=== PATIENT | female | born 1955 | race Two or more races ===

== ENCOUNTER 2016-04-04 14:42 | Emergency (ER) | payer OTHER ==
[2016-04-04 14:50] VITALS: BP 153/91; PULSE 104; TEMP 98.8; BMI 29.7
== END 2016-04-04 16:45 | disposition left against medical advice (07) ==
LOC: JER 14:42
DX: Z53.21 Procedure and treatment not carried out due to patient leaving prior to being seen by health care provider (principal)
CPT/HCPCS: 99281-25

== ENCOUNTER 2016-04-29 16:42 | Observation (INO) | payer OTHER ==
[2016-04-29 17:04] VITALS: BMI 32.3
--- NOTE | 2016-04-29 17:36 | PDOC ---
History of Present Illness <Yeison Masterson - Last Filed: 04/29/16 17:35> - History of Present Illness Initial Comments: 04/29/16 17:40 The patient is a 61 year old female who presents to the ED via EMS complaining of constipation and abdominal pain since today. The patient notes she has not had a bowel movement in two weeks. She states she tried Miralax with no relief. She states she has had constipation in the past. The patient denies chest pain, SOB The patient denies fever, chills, cough Allergies: Haloperidol <Aele Reese - Last Filed: 04/29/16 17:43> <Anastasia Tovar - Last Filed: 04/30/16 20:10> - General Chief Complaint: Constipation Stated Complaint: BOWEL OBSTRUCTION Past History - Past Medical History Anemia: Yes Diabetes: Yes GI Disorders: Yes (gerd) HTN: Yes Hypercholesterolemia: Yes - Immunization History Immunization Up to Date: Yes - Psycho/Social/Smoking Cessation Hx Anxiety: No Suicidal Ideation: No Smoking History: Unknown if ever smoked Have you smoked in the past 12 months: Yes Number of Cigarettes Smoked Daily: 10 Hx Alcohol Use: No Drug/Substance Use Hx: No <Yeison Masterson - Last Filed: 04/29/16 17:35> <Alee Reese - Last Filed: 04/29/16 17:43> <Anastasia Tovar - Last Filed: 04/30/16 20:10> - Past Medical History Allergies/Adverse Reactions: Allergies Allergy/AdvReac Type Severity Reaction Status Date / Time haloperidol [From Haldol] Allergy Verified 04/30/16 00:49 haloperidol lactate Allergy Verified 04/30/16 00:49 [From Haldol] Home Medications: Ambulatory Orders Albuterol Sulfate Inhaler - [Ventolin Hfa Inhaler -] 2 inh PO Q4H 04/29/16 Albuterol Sulfate [Proventil HFA Inhaler -] 1 - 2 inh PO QID 04/29/16 Amlodipine Besylate 10 mg PO DAILY 04/29/16 Ascorbic Acid [C-500] 500 mg PO BID 04/29/16 Aspirin [ASA -] 81 mg PO DAILY 04/29/16 Atorvastatin Ca [Lipitor] 20 mg PO HS 04/29/16 Calcium Carbonate/Vitamin D3 [Calcium 600 + Vit D Tablet] 1 each PO DAILY Cyclobenzaprine HCl [Amrix] 10 mg PO TID 04/29/16 Gabapentin [Neurontin] 300 mg PO HS 04/29/16 Iron Polysaccharide Complex [Ferrex 150] 150 mg PO DAILY 04/29/16 Lactulose (Oral Use) [Cephulac -] 20 gm PO TID 04/29/16 Mesalamine [Delzicol] 400 mg PO QID 04/29/16 Metoprolol Succinate [Toprol Xl] 50 mg PO DAILY 04/29/16 Mometasone/Formoterol [Dulera 200 Mcg/5 Mcg Inhaler] 2 inh IH BID 04/29/16 Omeprazole 20 mg PO DAILY 04/29/16 Oxycodone HCl/Acetaminophen [Percocet 10-325 mg Tablet] 1 each PO QID 04/29/16 Quetiapine Fumarate [Quetiapine Fumarate ER] 400 mg PO HS 04/29/16 Varenicline Tartrate [Chantix] 0.5 mg PO DAILY 04/29/16 Zolpidem Tartrate [Ambien] 10 mg PO HS 04/29/16 Review of Systems - Review of Systems Able to Perform ROS?: Yes Comments:: 04/29/16 17:40 CONSTITUTIONAL: Absent: fever, chills, diaphoresis, generalized weakness, malaise, loss of appetite HEENT: Absent: rhinorrhea, nasal congestion, throat pain, throat swelling, difficulty swallowing, mouth swelling, ear pain, eye pain, visual Changes CARDIOVASCULAR: Absent: chest pain, syncope, palpitations, irregular heart rate, lightheadedness , peripheral edema RESPIRATORY: Absent: cough, shortness of breath, dyspnea with exertion, orthopnea, wheezing, stridor, hemoptysis GASTROINTESTINAL: +Constipation, abdominal pain. Absent: abdominal distension, diarrhea, melena, hematochezia GENITOURINARY: Absent: dysuria, frequency, urgency, hesitancy, hematuria, flank pain, genital pain MUSCULOSKELETAL: Absent: myalgia, arthralgia, joint swelling SKIN: Absent: rash, itching, pallor HEMATOLOGIC/IMMUNOLOGIC: Absent: easy bleeding, easy bruising, lymphadenopathy, frequent infections ENDOCRINE: Absent: unexplained weight gain, unexplained weight loss, heat intolerance, cold intolerance NEUROLOGIC: Absent: headache, focal weakness or paresthesias, dizziness, unsteady gait, seizure, mental status changes, bladder or bowel incontinence PSYCHIATRIC: Absent: anxiety, depression, suicidal or homicidal ideation, hallucinations. <CandeAlee carter - Last Filed: 04/29/16 17:43> *Physical Exam - Vital Signs Last Vital Signs Temp Pulse Resp BP Pulse Ox 97.6 F 100 H 18 125/66 98 04/29/16 17:01 04/29/16 17:01 04/29/16 17:01 04/29/16 17:01 04/29/16 17:01 <Yeison Masterson - Last Filed: 04/29/16 17:35> - Vital Signs Last Vital Signs Temp Pulse Resp BP Pulse Ox 97.6 F 100 H 18 125/66 98 04/29/16 17:01 04/29/16 17:01 04/29/16 17:01 04/29/16 17:01 04/29/16 17:01 - Physical Exam Comments: 04/29/16 17:41 GENERAL: Well developed, well nourished. Awake and alert. In no acute distress. HEENT: Normocephalic, atraumatic. PERRLA, EOMI. No conjunctival pallor. Sclera are non- icteric. Moist mucous membranes. Oropharynx is clear. NECK: Supple. Full ROM. No JVD. Carotid pulses 2+ and symmetric, without bruits. No thyromegaly. No lymphadenopathy. CARDIOVASCULAR: Regular rate and rhythm. No murmurs, rubs, or gallops. Distal pulses are 2+ and symmetric. PULMONARY: No evidence of respiratory distress. Lungs clear to auscultation bilaterally. No wheezing, rales or rhonchi. ABDOMINAL: +Distended, stool is hard and dark brown. Non-tender. Non-distended. No rebound or guarding. No organomegaly. Normoactive bowel sounds. MUSCULOSKELETAL Normal range of motion at all joints. No bony deformities or tenderness. No CVA tenderness. EXTREMITIES: No cyanosis. No clubbing. No edema. No calf tenderness. SKIN: Warm and dry. Normal capillary refill. No rashes. No jaundice. NEUROLOGICAL: Alert, awake, appropriate. Cranial nerves 2-12 intact. No deficits to light touch and temperature in face, upper extremities and lower extremities. Normal speech. PSYCHIATRIC: Cooperative. Good eye contact. Appropriate mood and affect. <Alee Reese - Last Filed: 04/29/16 17:43> - Vital Signs Last Vital Signs Temp Pulse Resp BP Pulse Ox 97.6 F 100 H 18 125/66 98 04/29/16 17:01 04/29/16 17:01 04/29/16 17:01 04/29/16 17:01 04/29/16 17:01 <Anastasia Tovar - Last Filed: 04/30/16 20:10> ED Treatment Course - LABORATORY CBC & Chemistry Diagram: 04/30/16 08:00 04/30/16 08:00 - ADDITIONAL ORDERS Additional order review: Laboratory Results 04/29/16 04/29/16 17:30 17:30 Sodium 140 Potassium 4.4 Chloride 105 Carbon Dioxide 23 Anion Gap 12 BUN 15 Creatinine 1.5 H Creat Clearance w eGFR 35.07 Random Glucose 106 Calcium 9.8 Total Bilirubin 0.5 AST 24 ALT 14 Alkaline Phosphatase 196 H Total Protein 7.6 Albumin 3.6 Stool Occult Blood Negative 04/29/16 17:30 RBC 4.49 MCV 90.4 MCHC 32.5 RDW 14.2 MPV 7.8 Neutrophils % 83.0 H Lymphocytes % 11.1 Monocytes % 5.1 Eosinophils % 0.4 Basophils % 0.4 - Medications Given in the ED: ED Medications Discontinued Medications Generic Name Dose Route Start Last Admin Trade Name Maria Esther PRN Reason Stop Dose Admin Morphine Sulfate 1 mg 04/29/16 19:28 04/29/16 19:32 Morphine Injection - IVPUSH 04/29/16 19:29 1 mg ONCE ONE Administration Ondansetron HCl 4 mg 04/29/16 19:28 04/29/16 19:32 Zofran Injection IVPB 04/29/16 19:29 4 mg ONCE ONE Administration <Anastasia Tovar - Last Filed: 04/30/16 20:10> Medical Decision Making - Medical Decision Making 04/29/16 19:39 I received pt on signout and she seems to have a volvilus on abd xr; she is in for a CTscan, and she will be sent there shortly. She is nauseous and in pain and I ordered zofran and morphine. WHen she is back from CT, we can start an NG tube. 04/29/16 21:06 Patient Name: Joana Cavazos THIS IS A PRELIMINARY REPORT FROM IMAGING DOCUMENT PROCESSING SPECIALIST EXAM: CT abdomen/pelvis with contrast IMAGES: [id number] DATE OF SERVICE: 19:36:54.0 REASON FOR EXAM: Rule out SBO COMPARISON: None FINDINGS: There is a moderate hiatal hernia. There is no pneumoperitoneum *The colon is diffusely distended with stool and air. There is no obvious obstructing colonic lesion. There is no volvulus. Diagnostic considerations would include colonic ileus. There is no obvious SBO. There are no obvious gallstones No hydronephrosis No AAA The appendix is not identified. Urinary bladder is unremarkable. Mild free fluid is noted in the dependent portion of the pelvis. THIS DOCUMENT HAS BEEN ELECTRONICALLY SIGNED 04/30/16 20:08 NGT was placed. pt began feeling better and pulled it out. She is passing gas, and she has no obstruction, but she likely has an ileus and she has a great deal of abdominal pain, and she will be admitted for pain management and GI/ surg evaluation. <Anastasia Tovar - Last Filed: 04/30/16 20:10> *DC/Admit/Observation/Transfer <Yeison Masterson - Last Filed: 04/29/16 17:35> - Attestations Scribe Attestion: 04/29/16 17:40 Documentation prepared by Alee Reese, acting as medical billing manager for Yeison Masterson MD <Alee Reese - Last Filed: 04/29/16 17:43> - Discharge Dispostion Admit: Yes <Anastasia Tovar - Last Filed: 04/30/16 20:10> Diagnosis at time of Disposition: Chronic constipation, Ileus, Abdominal pain - Discharge Dispostion Condition at time of disposition: Guarded
[2016-04-29 17:49] LABS: BASOPHIL 0.4 % (0-2.0); EOSINOPHIL 0.4 % (0-4.5); MCH 29.4 pg (25.7-33.7); MCHC 32.5 g/dl (32.0-36.0); MEAN CELL VOLUME 90.4 fl (80-96); MEAN PLT VOLUME 7.8 fl (7.5-11.1); PLATELET COUNT 241 K/MM3 (134-434); RDW 14.2 % (11.6-15.6)
[2016-04-29 18:18] LABS: ALBUMIN 3.6 g/dl (3.4-5.0); CALCIUM 9.8 mg/dL (8.5-10.1); CREATININE 1.5 mg/dL (0.55-1.02)
[2016-04-29 18:19] LABS: BILIRUBIN,TOTAL 0.5 mg/dL (0.2-1.0); TOT PROT 7.6 g/dl (6.4-8.2)
[2016-04-29] MEDS ORDERED: morphine CARPU-JECT 2 MG/1 ML DISP.SYRIN ONE (19:24)
[2016-04-29] MEDS ORDERED: morphine CARPU-JECT 2 MG/1 ML DISP.SYRIN IVPUSH ONE (19:28)
[2016-04-29] MEDS ORDERED: ONDANSETRON 4 MG/2 ML VIAL IVPB ONE (19:28)
[2016-04-29] MEDS ORDERED: HYDROmorphone HCL CARPU-JECT 2 MG/1 ML DISP.SYRIN IVPUSH ONE (20:33)
[2016-04-29] MEDS ORDERED: HYDROmorphone HCL CARPU-JECT 2 MG/1 ML DISP.SYRIN ONE (20:36)
[2016-04-29] MEDS ORDERED: POLYETHYLENE GLYCOL 3350 119 GM BTL PO ONE (21:54)
[2016-04-29] MEDS ORDERED: LACTULOSE 20 GM/30 ML UDC (FOR ORAL USE ONLY) PO ONE (21:54)
[2016-04-29] MEDS ORDERED: LACTULOSE 20 GM/30 ML UDC (FOR ORAL USE ONLY) ONE (22:31)
--- NOTE | 2016-04-29 23:02 | HP ---
CHIEF COMPLAINT: Constipation, Abdominal Pain PCP: HISTORY OF PRESENT ILLNESS: This is a 61 y/o woman with a past medical history of Hypertension, Hyperlipidemia, Diabetes Mellitus, GERD, Schizophrenia. Who presents to the emergency department with constipation and abdominal pain x 2 weeks. Patient reports having nausea and vomiting intermittently. Patient reports falling 1.5 months ago shattering her right knee and having surgery at [facility]. Patient denies fever, chills, cough, SOB, CP, diarrhea, dysuria ER course was notable for: (1) Abdominal Xray image- ? volvulus (2) CTAP- moderate hiatal hernia, diffuse distended stool, air in colon (3) Given Morphine, Diluadid, Lactulose in ED Recent Travel: None PAST MEDICAL HISTORY: See HPI PAST SURGICAL HISTORY: R-Hip Replacement x2 R- knee Social History: SmokinPPD x 35 years Alcohol: Former since 81 Drugs: Denies Lives alone, not employed Family History: Mother: [place] age 60 Father: Cancer (unknown), age 61 Allergies haloperidol [From Haldol] Allergy (Verified 04/04/16 14:44) haloperidol lactate [From Haldol] Allergy (Verified 04/04/16 14:44) HOME MEDICATIONS: Home Medications Medication Instructions Recorded Albuterol Sulfate Inhaler - 2 inh PO Q4H 04/29/16 [Ventolin Hfa Inhaler -] Albuterol Sulfate [Proventil HFA 1 - 2 inh PO QID 04/29/16 Inhaler -] Amlodipine Besylate 10 mg PO DAILY 04/29/16 Ascorbic Acid [C-500] 500 mg PO BID 04/29/16 Aspirin [ASA -] 81 mg PO DAILY 04/29/16 Atorvastatin Ca [Lipitor] 20 mg PO HS 04/29/16 Calcium Carbonate/Vitamin D3 1 each PO DAILY 04/29/16 [Calcium 600 + Vit D Tablet] Cyclobenzaprine HCl [Amrix] 10 mg PO TID 04/29/16 Gabapentin [Neurontin] 300 mg PO HS 04/29/16 Iron Polysaccharide Complex 150 mg PO DAILY 04/29/16 [Ferrex 150] Lactulose (Oral Use) [Cephulac -] 20 gm PO TID 04/29/16 Mesalamine [Delzicol] 400 mg PO QID 04/29/16 Metoprolol Succinate [Toprol Xl] 50 mg PO DAILY 04/29/16 Mometasone/Formoterol [Dulera 200 2 inh IH BID 04/29/16 Mcg/5 Mcg Inhaler] Omeprazole 20 mg PO DAILY 04/29/16 Oxycodone HCl/Acetaminophen 1 each PO QID 04/29/16 [Percocet 10-325 mg Tablet] Quetiapine Fumarate [Quetiapine 400 mg PO HS 04/29/16 Fumarate ER] Varenicline Tartrate [Chantix] 0.5 mg PO DAILY 04/29/16 Zolpidem Tartrate [Ambien] 10 mg PO HS 04/29/16 REVIEW OF SYSTEMS CONSTITUTIONAL: Absent: fever, chills, diaphoresis, generalized weakness, malaise, loss of appetite, weight change HEENT: Absent: rhinorrhea, nasal congestion, throat pain, throat swelling, difficulty swallowing, mouth swelling, ear pain, eye pain, visual changes CARDIOVASCULAR: Absent: chest pain, syncope, palpitations, irregular heart rate, lightheadedness , peripheral edema RESPIRATORY: Absent: cough, shortness of breath, dyspnea with exertion, orthopnea, wheezing, stridor, hemoptysis GASTROINTESTINAL: abdominal pain, abdominal distension, nausea, vomiting, constipation Absent: diarrhea, melena, hematochezia GENITOURINARY: Absent: dysuria, frequency, urgency, hesitancy, hematuria, flank pain, genital pain MUSCULOSKELETAL: Absent: myalgia, arthralgia, joint swelling, back pain, neck pain SKIN: Absent: rash, itching, pallor HEMATOLOGIC/IMMUNOLOGIC: Absent: easy bleeding, easy bruising, lymphadenopathy, frequent infections ENDOCRINE: Absent: unexplained weight gain, unexplained weight loss, heat intolerance, cold intolerance NEUROLOGIC: Absent: headache, focal weakness or paresthesias, dizziness, unsteady gait, seizure, mental status changes, bladder or bowel incontinence PSYCHIATRIC: Absent: anxiety, depression, suicidal or homicidal ideation, hallucinations. PHYSICAL EXAMINATION GENERAL: Awake, alert, and fully oriented, in no acute distress. HEAD: Normal with no signs of trauma. EYES: Sclera icteric Pupils equal, round and reactive to light, extraocular movements intact, conjunctiva clear. No lid lag. EARS, NOSE, THROAT: Ears normal, nares patent, oropharynx clear without exudates. Moist mucous membranes. NECK: Normal range of motion, supple without lymphadenopathy, JVD, or masses. LUNGS: Breath sounds equal, clear to auscultation bilaterally. No wheezes, and no crackles. No accessory muscle use. HEART: Regular rate and rhythm, normal S1 and S2 without murmur, rub or gallop. ABDOMEN: Firm, generalized tenderness, distended, hypoactive bowel sounds, no guarding, no rebound, no masses. No hepatomegaly or splenomegaly. MUSCULOSKELETAL: Tenderness to R-knee. Normal range of motion at all joints. No bony deformities. No CVA tenderness. UPPER EXTREMITIES: 2+ pulses, warm, well-perfused. No cyanosis. No clubbing. Cap refill <2 seconds. No peripheral edema. LOWER EXTREMITIES: 2+ pulses, warm, well-perfused. No calf tenderness. No peripheral edema. NEUROLOGICAL: Cranial nerves II-XII intact. Normal speech. Gait not observed. PSYCHIATRIC: Cooperative. Good eye contact. Appropriate mood and affect. SKIN: Surgical scar, abrasion to R-knee. Warm, dry, normal turgor, no rashes noted. Laboratory Results - last 24 hr 04/29/16 04/29/16 04/29/16 17:30 17:30 17:30 WBC 10.0 RBC 4.49 Hgb 13.2 Hct 40.6 MCV 90.4 MCHC 32.5 RDW 14.2 Plt Count 241 MPV 7.8 Neutrophils % 83.0 H Lymphocytes % 11.1 Monocytes % 5.1 Eosinophils % 0.4 Basophils % 0.4 Sodium 140 Potassium 4.4 Chloride 105 Carbon Dioxide 23 Anion Gap 12 BUN 15 Creatinine 1.5 H Creat Clearance w eGFR 35.07 Random Glucose 106 Calcium 9.8 Total Bilirubin 0.5 AST 24 ALT 14 Alkaline Phosphatase 196 H Total Protein 7.6 Albumin 3.6 Stool Occult Blood Negative ASSESSMENT/PLAN: This is a 61 y/o female with a PMHx of: HTN, HLD, DM, Anemia, GERD, Psych. Presents to the ED constipation, abdominal pain x 2 weeks. Placed in Observation for further evaluation for their emergent condition. Plan: 1. Constipation - Likely secondary to Medications vs Ileus - Lactulose, Morphine, Dilaudid given in ED - Will avoid Opioids - Will Hold home meds that are constipating - Fleet Enema prn - NPO - Gentle IVF 2. Abdominal Pain - See Above - Omfier 3. HTN - Monitor BP - Continue Norvasc, Metoprolol 4. Diabetes Mellitus - Controlled - BGMs - ISS 5. Anemia - Stable - Will transfuse if Hgb < 7.0 6. GERD - Continue PPI 7. Schizophrenia - Continue Seroquel - quality assurance monitor body QT/QTc for prolongation - f/u with Psych consider change in med regimen 2/2 adverse effect- constipation 8. Tobacco Dependency - Patient counseled - Nicoderm Patch 9. FEN - NS@60ml/hr - Replete lyte prn - NPO 10. DVT/PPI Prophylaxis - OOB - SCDs - Consider AC if LOS > 48 hrs Code Status: Full Code Problem List - Problem (1) Chronic constipation Code(s): K59.09 - OTHER CONSTIPATION (2) Ileus Code(s): K56.7 - ILEUS, UNSPECIFIED (3) Abdominal pain Code(s): R10.9 - UNSPECIFIED ABDOMINAL PAIN (4) Anemia Code(s): D64.9 - ANEMIA, UNSPECIFIED (5) Diabetes mellitus Code(s): E11.9 - TYPE 2 DIABETES MELLITUS WITHOUT COMPLICATIONS (6) HTN (hypertension) Code(s): I10 - ESSENTIAL (PRIMARY) HYPERTENSION (7) HLD (hyperlipidemia) Code(s): E78.5 - HYPERLIPIDEMIA, UNSPECIFIED (8) GERD (gastroesophageal reflux disease) Code(s): K21.9 - GASTRO-ESOPHAGEAL REFLUX DISEASE WITHOUT ESOPHAGITIS (9) Schizophrenia Code(s): F20.9 - SCHIZOPHRENIA, UNSPECIFIED (10) Tobacco dependency Code(s): F17.200 - NICOTINE DEPENDENCE, UNSPECIFIED, UNCOMPLICATED (11) DVT prophylaxis Code(s): SCE6516 - Visit type - Emergency Visit Emergency Visit: Yes ED Registration Date: 04/29/16 Care time: The patient presented to the Emergency Department on the above date and was hospitalized for further evaluation of their emergent condition. - New Patient This patient is new to me today: Yes Date on this admission: 04/29/16 - Critical Care Critical Care patient: No
[2016-04-30] MEDS ORDERED: SODIUM PHOSPHATE/NA BIPHOS 133 ML ENEMA PR ONE (00:50)
[2016-04-30] MEDS: SODIUM CHLORIDE 1,000 ML IV SCH ×3 (01:40→23:45)
[2016-04-30] MEDS ORDERED: KETOROLAC TROMETHAMINE 30 MG/1 ML VIAL IVPUSH ONE (02:01)
[2016-04-30] MEDS ORDERED: ACETAMINOPHEN 1000 MG/100 ML VIAL (NON FORMULARY) IVPB ONE (02:09)
[2016-04-30 08:14] LABS: BASOPHIL 0.6 % (0-2.0); EOSINOPHIL 0.1 % (0-4.5); MCH 29.6 pg (25.7-33.7); MCHC 33.3 g/dl (32.0-36.0); MEAN CELL VOLUME 88.8 fl (80-96); MEAN PLT VOLUME 6.8 fl (7.5-11.1); NEUTROPHILS 77.4 % (42.8-82.8); PLATELET COUNT 175 K/MM3 (134-434); RDW 13.9 % (11.6-15.6); WHITE BLOOD COUNT 8.2 K/mm3 (4.0-10.0)
[2016-04-30 09:02] LABS: CALCIUM 9.5 mg/dL (8.5-10.1); CREATININE 1.3 mg/dL (0.55-1.02)
[2016-04-30 09:45] LABS: ALBUMIN 3.2 g/dl (3.4-5.0)
[2016-04-30 09:46] LABS: BILIRUBIN,DIRECT 0.2 mg/dL (0.0-0.2); BILIRUBIN,TOTAL 0.5 mg/dL (0.2-1.0); TOT PROT 6.5 g/dl (6.4-8.2)
[2016-04-30] MEDS ORDERED: ACETAMINOPHEN 325 MG TABLET (FP) PO ONE (10:10)
[2016-04-30] MEDS ORDERED: oxyCODONE HCL 5 MG TABLET PO ONE (11:37)
[2016-04-30] MEDS: NICOTINE 14 MG/24 HOURS TOPICAL PATCH TD SCH ×2 (12:19→12:22)
--- NOTE | 2016-04-30 12:41 | PN ---
Progress Note (short form) - Note Progress Note: Subjective: The patient was seen and examined at the bedside. She was woken up and appears comfortable. She reports feeling good. Had two large bowel movements overnight. Abd x-ray today with slight improvement with less colonic air distention but increased right colonic stool Current Medications Generic Name Dose Route Start Last Admin Trade Name Freq PRN Reason Stop Dose Admin Acetaminophen 650 mg 04/30/16 14:27 Tylenol - PO Q6H PRN FEVER OR PAIN Docusate Sodium 100 mg 04/30/16 14:16 Colace - PO Q8H PRN CONSTIPATION Sodium Chloride 1,000 mls @ 60 mls/hr 04/29/16 23:45 04/30/16 01:40 Normal Saline - IV 60 mls/hr ASDIR AMANDA Administration Nicotine 14 mg 04/30/16 10:00 04/30/16 12:22 Nicoderm Patch - TD Not Given DAILY AMANDA Polyethylene Glycol 17 gm 04/30/16 15:45 Miralax (For Daily Use) - PO DAILY AMANDA Senna 2 tab 04/30/16 22:00 Senna - PO HS PRN CONSTIPATION Objective: Vital Signs Period Temp Pulse Resp BP Sys/Diaz Pulse Ox Last 24 Hr 97.6 F-99.4 F 100-107 18-18 125-143/63-76 96-98 Physical Exam: Patient refused CBCD WBC 8.2 K/mm3 (4.0-10.0) 04/30/16 08:00 RBC 4.29 M/mm3 (3.60-5.2) 04/30/16 08:00 Hgb 12.7 GM/dL (10.7-15.3) 04/30/16 08:00 Hct 38.1 % (32.4-45.2) 04/30/16 08:00 MCV 88.8 fl (80-96) 04/30/16 08:00 MCHC 33.3 g/dl (32.0-36.0) 04/30/16 08:00 RDW 13.9 % (11.6-15.6) 04/30/16 08:00 Plt Count 175 K/MM3 (134-434) D 04/30/16 08:00 MPV 6.8 fl (7.5-11.1) L D 04/30/16 08:00 CMP Sodium 141 mmol/L (136-145) 04/30/16 08:00 Potassium 3.9 mmol/L (3.5-5.1) 04/30/16 08:00 Chloride 105 mmol/L (98-107) 04/30/16 08:00 Carbon Dioxide 25 mmol/L (21-32) 04/30/16 08:00 Anion Gap 11 (8-16) 04/30/16 08:00 BUN 19 mg/dL (7-18) H D 04/30/16 08:00 Creatinine 1.3 mg/dL (0.55-1.02) H 04/30/16 08:00 Creat Clearance w eGFR 35.07 (>60) 04/29/16 17:30 Random Glucose 119 mg/dL (74-106) H 04/30/16 08:00 Calcium 9.5 mg/dL (8.5-10.1) 04/30/16 08:00 Total Bilirubin 0.5 mg/dL (0.2-1.0) 04/30/16 08:00 AST 12 U/L (15-37) L D 04/30/16 08:00 ALT 9 U/L (12-78) L D 04/30/16 08:00 Alkaline Phosphatase 186 U/L (45-117) H 04/30/16 08:00 Total Protein 6.5 g/dl (6.4-8.2) 04/30/16 08:00 Albumin 3.2 g/dl (3.4-5.0) L 04/30/16 08:00 Assessment: This is a 61 year old female with PMHx of HTN, HLD, possible DM, Anemia, GERD, Schizophrenia, who presented to the ED with constipation, abdominal pain x 2 weeks Plan: 1) GI: Constipation, abd pain - Patient takes narcotics at home without stool softeners - Two large bowel movements today, but still with abdominal pain - Lactulose - Miralax - Colace - Senna - Avoid opioids - Discharge once pain improved 2) Cardiology: HTN - BP controlled - Continue Metoprolol - Continue Norvasc 3) : WIL? - Cr continues to improve - Baseline function unknown - Encourage po intake - Outpatient nephrology follow-up 4) DM? - Not on home medications - BGM ACHS - ISS ACHS - F/u [id number] 5) F/E/N: - Monitor electrolytes - Sodium controlled/diabetic diet 6) Prophylaxis: - OOB ambulating - SCDs bilaterally - Heparin 5,000u sq bid 7) Dispo: - Once condition improves CODE STATUS: FULL CODE Visit type - Emergency Visit Emergency Visit: Yes ED Registration Date: 04/29/16 Care time: The patient presented to the Emergency Department on the above date and was hospitalized for further evaluation of their emergent condition. - New Patient This patient is new to me today: Yes Date on this admission: 04/30/16 - Critical Care Critical Care patient: No
[2016-04-30] MEDS ORDERED: LACTULOSE 20 GM/30 ML UDC (FOR ORAL USE ONLY) PO ONE (14:15)
[2016-04-30] MEDS ORDERED: DOCUSATE SODIUM 100 MG CAPSULE (FP) PO PRN (14:16)
[2016-04-30] MEDS ORDERED: ACETAMINOPHEN 325 MG TABLET (FP) PO PRN (14:27)
[2016-04-30] MEDS ORDERED: MESALAMINE 400 MG PO SCH (18:00)
[2016-04-30] MEDS: POLYETHYLENE GLYCOL 3350 119 GM BTL PO SCH (18:13)
[2016-04-30] MEDS: ALBUTEROL SO4 6.7 GM HFA INHALER IH SCH (21:52)
[2016-04-30] MEDS: LACTULOSE 20 GM/30 ML UDC (FOR ORAL USE ONLY) PO SCH (21:52)
[2016-04-30] MEDS: HEPARIN NA (PORCINE) 5,000 UNITS/ML 1ML VIAL SQ SCH (21:53)
[2016-04-30] MEDS ORDERED: ATORVASTATIN CA 20 MG TABLET (FP) PO SCH (22:00)
[2016-04-30] MEDS ORDERED: GABAPENTIN 300 MG CAPSULE (FP) PO SCH (22:00)
[2016-04-30] MEDS ORDERED: SENNOSIDES 8.6MG TABLET (FP) PO PRN (22:00)
[2016-04-30] MEDS ORDERED: PATIENT'S OWN MEDICATION (NON-FORMULARY) (Mometasone/Formoterol [Dulera 200 Mcg/5 Mcg Inha IH SCH (22:00)
[2016-04-30] MEDS: ZOLPIDEM TARTRATE 5 MG TABLET PO PRN ×2 (22:59→23:00)
--- NOTE | 2016-05-01 00:36 | EKG ---
Test Reason : Blood Pressure : / mmHG Vent. Rate : 103 BPM Atrial Rate : 103 BPM P-R Int : 154 ms QRS Dur : 082 ms QT Int : 330 ms P-R-T Axes : 060 063 021 degrees QTc Int : 432 ms SINUS TACHYCARDIA OTHERWISE NORMAL ECG NO PREVIOUS ECGS AVAILABLE Confirmed by RA WALTERS MD ([id number] on 05/01/2016 12:35:39 AM Referred By: Uzair KEITH Confirmed By:RA WALTERS MD
[2016-05-01] MEDS: ALBUTEROL SO4 6.7 GM HFA INHALER IH SCH ×2 (04:00)
[2016-05-01] MEDS: LACTULOSE 20 GM/30 ML UDC (FOR ORAL USE ONLY) PO SCH (06:12)
[2016-05-01] MEDS ORDERED: PANTOPRAZOLE 20 MG TABLET (FP) PO SCH (10:00)
[2016-05-01] MEDS ORDERED: VARENICLINE TARTRATE 0.5 MG TAB PO SCH (10:00)
[2016-05-01] MEDS ORDERED: ASPIRIN 81 MG CHEWABLE TABLETS PO SCH (10:00)
[2016-05-01] MEDS ORDERED: amLODIPine BESYLATE 10 MG TABLET (FP) PO SCH (10:00)
[2016-05-01] MEDS ORDERED: METOPROLOL SUCCINATE 50 MG TAB.SR.24H (FP) PO SCH (10:00)
[2016-05-01] MEDS: POLYETHYLENE GLYCOL 3350 119 GM BTL PO SCH (11:13)
[2016-05-01] MEDS: NICOTINE 14 MG/24 HOURS TOPICAL PATCH TD SCH (11:13)
[2016-05-01] MEDS: HEPARIN NA (PORCINE) 5,000 UNITS/ML 1ML VIAL SQ SCH (11:14)
--- NOTE | 2016-05-01 12:13 | DS ---
Physical Exam: SUBJECTIVE: Patient seen and examined. She was sitting up in bed, in no acute distress. States she has had a bowel movement this morning. Denies any diarrhea, nausea or vomiting. States she feels better. She state she takes Oxycodone at home for her chronic right leg pain. OBJECTIVE: Vital Signs Period Temp Pulse Resp BP Sys/Diaz Pulse Ox Last 24 Hr 98.1 F-99.3 F 94-117 18-20 118-135/56-73 96-96 PHYSICAL EXAM GENERAL: The patient is awake, alert, and fully oriented, in no acute distress. HEAD: Normal with no signs of trauma. EYES: PERRL, extraocular movements intact, sclera anicteric, conjunctiva clear. ENT: oropharynx clear without exudates, moist mucous membranes. NECK: Trachea midline, full range of motion, supple. LUNGS: Breath sounds equal, clear to auscultation bilaterally, no wheezes, no crackles, no accessory muscle use. HEART: Regular rate and rhythm ABDOMEN: Soft, nontender, + bowel sounds on all 4 quadrants, + flatulence, denies pain on deep palpation of abdomen, denies nausea/vomiting EXTREMITIES: large scar on right lateral leg, pt states she has had surgery with metallic implants of right leg NEUROLOGICAL: Normal speech, gait not observed. PSYCH: Normal mood, normal affect. LABS Laboratory Results - last 24 hr 04/30/16 04/30/16 05/01/16 18:19 22:03 06:13 POC Glucometer 89 112 101 HOSPITAL COURSE: Date of Admission:04/29/16 Date of Discharge: 05/01/16 Imaging: Abdominal xray 04/30/2016 - Slight improvement with less colonic air distention but increase in right colonic stool, no free air. ASSESSMENT: Patient is a 61 year old female with a significant past medical history of hypertension, hyperlipidemia, possible DM, anemia, GERD and schizophrenia. who presented to the ED with constipation, abdominal pain for approximately 2 weeks. During today's assessment, pt denies any abdominal pain, states she is moving her bowels an denies any nausea of vomiting. She states she takes Oxycodone at home for her chronic leg pain. GI Constipation/Abdominal pain - resolved Assessment/Plan: Had two large BMs yesterday, 1 small BM overnight and one large BM this morning Her abdomen is soft, non distended, denies pain and has + bowel sounds, no nausea or vomiting reported Will prescribe Colace TID, Senna @HS She should take opiods only if pain is severe Cardiology: Hypertension - chronic Assessment/Plan: Controlled on Metoprolol and Norvasc Outpatient follow up : Acute kidney Injury Assessment/Plan: Unknown baseline bun/creat, however, trend shows improvement Continue adequate water intake Re-assess with outpt PCP and if continues to be elevated, may need furnace attendant follow up. Endocrine: Diabetes Mellitus - rule out Assessment/Plan: HgbA1c as out patient, blood glucose levels within normal limits Psyche: Schizophrenia Assessment/Plan: Tisha Young Advised to follow up with psychologist, for possible change in med regimen secondary to constipation Disposition: For discharge today with follow up with PCP within 3- 5 days. Full Code. Minutes to complete discharge: 45 Discharge Summary Reason For Visit: CHRONIC CONSTIPATION/ILEUS ABD PAIN Current Active Problems Abdominal pain (Acute) Anemia (Acute) Chronic constipation (Acute) DVT prophylaxis (Acute) Diabetes mellitus (Acute) GERD (gastroesophageal reflux disease) (Acute) HLD (hyperlipidemia) (Acute) HTN (hypertension) (Acute) Ileus (Acute) Schizophrenia (Acute) Tobacco dependency (Acute) Condition: Improved - Instructions Diet, Activity, Other Instructions: Please avoid Opioids unless your pain is severe. Take laxatives as prescribed and increase your fluid intake to a minimum of 8 glasses of water per day. Please return to the ER if you experience worsening symptoms, worsening abdominal pain, nausea or vomiting. Please follow up with your pCP for repeat blood work (BMP) for repeat renal function. Disposition: HOME - Home Medications Comprehensive Discharge Medication List: Ambulatory Orders Albuterol Sulfate Inhaler - [Ventolin Hfa Inhaler -] 2 inh PO Q4H 04/29/16 Albuterol Sulfate [Proventil HFA Inhaler -] 1 - 2 inh PO QID 04/29/16 Amlodipine Besylate 10 mg PO DAILY 04/29/16 Ascorbic Acid [C-500] 500 mg PO BID 04/29/16 Aspirin [ASA -] 81 mg PO DAILY 04/29/16 Atorvastatin Ca [Lipitor] 20 mg PO HS 04/29/16 Calcium Carbonate/Vitamin D3 [Calcium 600 + Vit D Tablet] 1 each PO DAILY Cyclobenzaprine HCl [Amrix] 10 mg PO TID 04/29/16 Gabapentin [Neurontin] 300 mg PO HS 04/29/16 Iron Polysaccharide Complex [Ferrex 150] 150 mg PO DAILY 04/29/16 Lactulose (Oral Use) [Cephulac -] 20 gm PO TID 04/29/16 Mesalamine [Delzicol] 400 mg PO QID 04/29/16 Metoprolol Succinate [Toprol Xl] 50 mg PO DAILY 04/29/16 Mometasone/Formoterol [Dulera 200 Mcg/5 Mcg Inhaler] 2 inh IH BID 04/29/16 Omeprazole 20 mg PO DAILY 04/29/16 Oxycodone HCl/Acetaminophen [Percocet 10-325 mg Tablet] 1 each PO QID 04/29/16 Quetiapine Fumarate [Quetiapine Fumarate ER] 400 mg PO HS 04/29/16 Varenicline Tartrate [Chantix] 0.5 mg PO DAILY 04/29/16 Zolpidem Tartrate [Ambien] 10 mg PO HS 04/29/16 This patient is new to me today: Yes Date on this admission: 05/01/16 Emergency Visit: Yes ED Registration Date: 04/29/16 Care time: The patient presented to the Emergency Department on the above date and was hospitalized for further evaluation of their emergent condition. Critical Care patient: No - Discharge Referral Referred to [facility] Med P.C.: No
[2016-05-01 13:52] VITALS: BP 133/74; PULSE 95; TEMP 97.7
== END 2016-05-01 15:58 | disposition home or self-care (01) ==
LOC: JER 16:42 → JERBED 22:09 → INTOOBSV 22:09 → UNDOADMOB 22:09 → JERBED 23:12 → J7W 04-30 01:20
PROVIDERS: ADMIT Internal Medicine; ATTEND Nurse Practitioner Family
DX: K59.09 Other constipation (principal); D64.9 Anemia, unspecified; N17.9 Acute kidney failure, unspecified; E11.9 Type 2 diabetes mellitus without complications; E78.00 Pure hypercholesterolemia, unspecified; K56.69 Other intestinal obstruction; K21.9 Gastro-esophageal reflux disease without esophagitis; I10 Essential (primary) hypertension; F20.89 Other schizophrenia; F17.210 Nicotine dependence, cigarettes, uncomplicated; K44.9 Diaphragmatic hernia without obstruction or gangrene; Z96.651 Presence of right artificial knee joint; Z96.643 Presence of artificial hip joint, bilateral
CPT/HCPCS: 36415; 71010-TC; 74000-TC; 74020-TC; 74176-TC; 80048; 80053; 80076; 81003; 82272; 83036; 85025; 93005; 93010; 99285-25; G0378; J1644

== ENCOUNTER 2016-07-13 02:55 | Emergency (ER) | payer OTHER ==
[2016-07-13 03:21] VITALS: BP 140/71; PULSE 94; TEMP 98.1; BMI 32.3
[2016-07-13] MEDS ORDERED: SODIUM CHLORIDE 1,000 ML IV STA (03:40)
--- NOTE | 2016-07-13 03:40 | PDOC ---
History of Present Illness - General History Source: Patient Exam Limitations: No Limitations - History of Present Illness Initial Comments: 07/13/16 03:45 The patient is a 61 year old female with significant past medical history of hypertension, hyperlipidemia, diabetes, gerd, colitis and schizophrenia who presents to the ED for 3 days of abdominal pain. Patient reports she developed right lower quadrant pain that she describes as a dull sensation. However, yesterday her pain became more diffuse, sharp and persistent throughout the day. Denies nausea, vomiting, or diarrhea. Last normal bowel movement was yesterday. She took 2 percocet last night with minimal relief. The patient denies fever, chills, cough, SOB, chest pain, and palpitations. Allergies: haloperidol, haloperidol lactate Social History: Current smoker (ppd x 35 years). No alcohol or drug use reported. Past Surgical History: R hip replacement x2, R knee repair PCP: None reported <Merced Orona - Last Filed: 07/13/16 06:46> - General History Source: Patient <Facundo Yost - Last Filed: 07/13/16 06:55> - General Chief Complaint: Pain, Acute Stated Complaint: ABDOMINAL PAIN Time Seen by Provider: 07/13/16 03:11 Past History <Merced Orona - Last Filed: 07/13/16 06:46> - Past Medical History Anemia: Yes COPD: Yes Diabetes: Yes GI Disorders: Yes (gerd) HTN: Yes Hypercholesterolemia: Yes - Surgical History Orthopedic Surgery: Yes (Right hip and Right knee) - Immunization History Immunization Up to Date: Yes - Psycho/Social/Smoking Cessation Hx Anxiety: No Suicidal Ideation: No Smoking History: Current every day smoker Have you smoked in the past 12 months: Yes Number of Cigarettes Smoked Daily: 10 Information on smoking cessation initiated: No 'Breaking Loose' booklet given: 04/30/16 Hx Alcohol Use: No Drug/Substance Use Hx: No <Facundo Yost - Last Filed: 07/13/16 06:55> - Past Medical History Allergies/Adverse Reactions: Allergies Allergy/AdvReac Type Severity Reaction Status Date / Time haloperidol [From Haldol] Allergy Verified 07/13/16 03:15 haloperidol lactate Allergy Verified 07/13/16 03:15 [From Haldol] Home Medications: Ambulatory Orders Albuterol Sulfate Inhaler - [Ventolin HFA Inhaler -] 2 inh PO Q4H 04/29/16 Albuterol Sulfate [Proventil HFA Inhaler -] 1 - 2 inh PO QID 04/29/16 Amlodipine Besylate 10 mg PO DAILY 04/29/16 Ascorbic Acid [C-500] 500 mg PO BID 04/29/16 Aspirin [ASA -] 81 mg PO DAILY 04/29/16 Atorvastatin Ca [Lipitor] 20 mg PO HS 04/29/16 Calcium Carbonate/Vitamin D3 [Calcium 600 + Vit D Tablet] 1 each PO DAILY Cyclobenzaprine HCl [Amrix] 10 mg PO TID 04/29/16 Gabapentin [Neurontin] 300 mg PO HS 04/29/16 Lactulose (Oral Use) [Cephulac -] 20 gm PO TID 04/29/16 Mesalamine [Delzicol] 400 mg PO QID 04/29/16 Metoprolol Succinate [Toprol Xl] 50 mg PO DAILY 04/29/16 Mometasone/Formoterol [Dulera 200 Mcg/5 Mcg Inhaler] 2 inh IH BID 04/29/16 Omeprazole 20 mg PO DAILY 04/29/16 Oxycodone HCl/Acetaminophen [Percocet 10-325 mg Tablet] 1 each PO QID 04/29/16 Quetiapine Fumarate [Quetiapine Fumarate ER] 800 mg PO HS 04/29/16 Zolpidem Tartrate [Ambien] 10 mg PO HS 04/29/16 Acetaminophen [Tylenol .Regular Strength -] 650 mg PO Q6H PRN #0 tablet Levofloxacin [Levaquin -] 500 mg PO DAILY #7 tablet 07/13/16 Metronidazole [Flagyl -] 500 mg PO BID #14 tablet 07/13/16 Oxycodone HCl/Acetaminophen [Percocet 5-325 mg Tablet] 1 - 2 tab PO Q6H #20 tablet MDD 4 07/13/16 Review of Systems - Review of Systems Able to Perform ROS?: Yes Comments:: 07/13/16 03:45 CONSTITUTIONAL: Absent: fever, no chills, no fatigue EYES: Absent: visual changes ENT: Absent: ear pain, no sore throat CARDIOVASCULAR: Absent: chest pain, no palpitations RESPIRATORY: Absent: cough, no SOB GI: +diffuse abdominal pain Absent: no nausea, no vomiting, no constipation, no diarrhea GENITOURINARY: Absent: dysuria, no frequency, no hematuria MUSCULOSKELETAL: Absent: back pain, no arthralgia, no myalgia SKIN: Absent: rash NEURO: Absent: headache <YeyoMerced - Last Filed: 07/13/16 06:46> *Physical Exam - Vital Signs Last Vital Signs Temp Pulse Resp BP Pulse Ox 98.1 F 94 H 20 140/71 98 07/13/16 03:09 07/13/16 03:09 07/13/16 03:09 07/13/16 03:09 07/13/16 03:09 - Physical Exam Comments: 07/13/16 03:45 GENERAL: Well-appearing, well-nourished. No apparent distress. HEENT: Normocephalic, atraumatic. PERRL, EOM intact. CARDIOVASCULAR: Normal S1, S2. Regular rate and rhythm. PULMONARY: Clear to auscultation bilaterally. ABDOMEN: Soft, non-distended, diffuse tenderness, more localize to the right lower quadrant. No rebound or guarding. Decreased bowel sounds. EXTREMITIES: Normal ROM in all four extremities. No gross deformities. SKIN: Warm, dry. No rash NEUROLOGICAL: No focal neurological deficits. 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 No bowel obstruction, diverticulitis or free air. Normal appendix. Markedly decreased colon air and feces compared to prior exam. Cholelithiasis versus fundal wall calcifications, also seen on prior exam. 1.6 cm and 1.2 cm indeterminate hypodensities left kidney, which appeared simple fluid density on prior exam, suspect simple cysts with artifact more likely than enhancing masses. Consider follow-up ultrasound. Additional small cystic foci kidneys. 3.0 cm soft tissue density posterior right lower pelvis, at location where trace ascites was seen on previous exam, suspect slightly increased ascites artifactually denser on current study, with mass considered less likely. Advise follow-up. Unremarkable pancreas. Small hiatal hernia. Nodular liver contour, probably cirrhosis. Chronic fracture left posterior rib 11. Arthroplasty right hip. Osteonecrosis left femoral head and left hip osteoarthritis. <Merced Orona - Last Filed: 07/13/16 06:46> - LABORATORY CBC & Chemistry Diagram: 07/13/16 03:55 07/13/16 03:55 <Facundo Yost - Last Filed: 07/13/16 06:55> Medical Decision Making - Medical Decision Making 07/13/16 06:55 Dr. Yost: The scribe's documentation has been prepared under my direction and personally reviewed by me in its entirery. I confirm that the note above accurately reflects all work, treatment, procedures, and medical decision making performed by me. <Facundo Yost - Last Filed: 07/13/16 06:55> *DC/Admit/Observation/Transfer - Attestations Scribe Attestion: 07/13/16 03:45 Documentation prepared by Merced Orona, acting as medical office manager for Facundo Yost MD/. <Merced Orona - Last Filed: 07/13/16 06:46> - Discharge Dispostion Admit: No <Facundo Yost - Last Filed: 07/13/16 06:55> Diagnosis at time of Disposition: Abdominal pain, Colitis - Discharge Dispostion Disposition: HOME Condition at time of disposition: Stable - Prescriptions Prescriptions: Metronidazole [Flagyl -] 500 mg PO BID #14 tablet Levofloxacin [Levaquin -] 500 mg PO DAILY #7 tablet Oxycodone HCl/Acetaminophen [Percocet 5-325 mg Tablet] 1 - 2 tab PO Q6H #20 tablet MDD 4 - Referrals Referrals: STAFF,NOT ON [Primary Care Provider] - Jose Martin Boyd MD [Staff Physician] - Massimo Montenegro MD [Staff Physician] - - Patient Instructions Printed Discharge Instructions: DI for Colitis
[2016-07-13] MEDS ORDERED: HYDROmorphone HCL CARPU-JECT 1 MG/1 ML DISP.SYRIN IVPUSH ONE (03:44)
[2016-07-13] MEDS ORDERED: ONDANSETRON 4 MG/2 ML VIAL IVPUSH STA (03:44)
[2016-07-13] MEDS ORDERED: HYDROmorphone HCL CARPU-JECT 1 MG/1 ML DISP.SYRIN ONE (03:52)
[2016-07-13] MEDS ORDERED: ONDANSETRON 4 MG/2 ML VIAL ONE (03:53)
[2016-07-13 04:05] LABS: BASOPHIL 0.5 % (0-2.0); EOSINOPHIL 3.9 % (0-4.5); MCH 29.7 pg (25.7-33.7); MCHC 32.7 g/dl (32.0-36.0); MEAN CELL VOLUME 90.8 fl (80-96); MEAN PLT VOLUME 7.1 fl (7.5-11.1); NEUTROPHILS 53.9 % (42.8-82.8); PLATELET COUNT 161 K/MM3 (134-434); RDW 13.9 % (11.6-15.6); WHITE BLOOD COUNT 5.7 K/mm3 (4.0-10.0)
[2016-07-13 04:36] LABS: ALBUMIN 3.1 g/dl (3.4-5.0); BILIRUBIN,TOTAL 0.3 mg/dL (0.2-1.0); CALCIUM 8.7 mg/dL (8.5-10.1); COCKROFT - GAULT 68.714; CREATININE 1.2 mg/dL (0.55-1.02); TOT PROT 6.9 g/dl (6.4-8.2)
[2016-07-13] MEDS ORDERED: METRONIDAZOLE 500 MG PREMIXED 100 ML IVPB ONE (06:47)
[2016-07-13] MEDS ORDERED: LEVOFLOXACIN 500 MG IVPB 100 ML IVPB ONE (06:47)
[2016-07-13] MEDS ORDERED: metroNIDAZOLE 250 MG TABLET PO ONE (06:51)
[2016-07-13] MEDS ORDERED: OXYCODONE/APAP 5/325MG COMBO TABLET PO ONE (06:51)
[2016-07-13] MEDS ORDERED: LEVOFLOXACIN 500 MG TABLET (FP) PO ONE (06:51)
[2016-07-13] MEDS ORDERED: OXYCODONE/APAP 5/325MG COMBO TABLET ONE (06:53)
[2016-07-13] MEDS ORDERED: LEVOFLOXACIN 500 MG TABLET (FP) ONE (06:53)
[2016-07-13] MEDS ORDERED: metroNIDAZOLE 250 MG TABLET ONE (06:53)
--- NOTE | 2016-07-13 17:29 | EKG ---
Test Reason : Blood Pressure : / mmHG Vent. Rate : 086 BPM Atrial Rate : 086 BPM P-R Int : 164 ms QRS Dur : 086 ms QT Int : 386 ms P-R-T Axes : 069 060 057 degrees QTc Int : 461 ms NORMAL SINUS RHYTHM NORMAL ECG WHEN COMPARED WITH ECG OF 30-APR-2016 10:50, T WAVE INVERSION NO LONGER EVIDENT IN INFERIOR LEADS Confirmed by LOWELL SUTTON, KAREN ([id number]) on 07/13/2016 5:29:28 PM Referred By: Confirmed By:KAREN ETIENNE MD
== END 2016-07-13 07:11 | disposition home or self-care (01) ==
LOC: JER 02:55
DX: K52.9 Noninfective gastroenteritis and colitis, unspecified (principal); I10 Essential (primary) hypertension; E78.5 Hyperlipidemia, unspecified; E11.9 Type 2 diabetes mellitus without complications; K21.9 Gastro-esophageal reflux disease without esophagitis; F17.210 Nicotine dependence, cigarettes, uncomplicated
CPT/HCPCS: 36415; 74177-TC; 80053; 83690; 85025; 93005; 93010; 99282-25

== ENCOUNTER 2018-02-10 17:00 | Inpatient (IN) | payer OTHER ==
--- NOTE | 2018-02-10 17:06 | PDOC ---
History of Present Illness - General Chief Complaint: Pain Stated Complaint: ABDOMINAL PAIN Time Seen by Provider: 02/10/18 17:05 - History of Present Illness Initial Comments: 02/10/18 17:55 The patient is a 62 year old female with a history of HTN, HLD, DM, COPD, GERD, Colitis who presents for evaluation of abdominal pain. The patient reports a 2 day history of worsening sharp left sided abdominal pain that feels similar to her prior episodes of colitis prompting her presentation to the ED for further evaluation. She notes that her last bowel movement was 4 days ago, but otherwise denies fevers, chills, SOB, chest pain, nausea, vomiting, or changes with urination. Past History - Past Medical History Allergies/Adverse Reactions: Allergies Allergy/AdvReac Type Severity Reaction Status Date / Time haloperidol [From Haldol] Allergy Verified 02/10/18 17:21 haloperidol lactate Allergy Verified 02/10/18 17:21 [From Haldol] Home Medications: Ambulatory Orders Albuterol Sulfate Inhaler - [Ventolin HFA Inhaler -] 2 inh PO Q4H PRN 04/29/16 Amlodipine Besylate 10 mg PO DAILY 04/29/16 Aspirin [ASA -] 81 mg PO DAILY 04/29/16 Atorvastatin Ca [Lipitor] 20 mg PO HS 04/29/16 Gabapentin [Neurontin] 300 mg PO HS 04/29/16 Metoprolol Succinate [Toprol Xl] 50 mg PO DAILY 04/29/16 Omeprazole 20 mg PO DAILY 04/29/16 Oxycodone HCl/Acetaminophen [Percocet 10-325 mg Tablet] 1 each PO Q6H PRN MDD 4 tablets 04/29/16 Quetiapine Fumarate [Quetiapine Fumarate ER] 800 mg PO HS 04/29/16 Zolpidem Tartrate [Ambien] 10 mg PO HS 04/29/16 Clonazepam 1 mg PO DAILY PRN 02/11/18 Diclofenac Sodium 50 mg PO BID PRN 02/11/18 FENTANYL 25mcg PATCH [DURAGESIC 25mcg PATCH -] 1 patch TD Q72H PRN 02/11/18 Furosemide [Lasix -] 20 mg PO DAILY 02/11/18 Iron Ps Complex/B12/Folic Acid [Ferrex 150 Forte Capsule] 150 mg PO DAILY Lactulose 2 tbs PO DAILY 02/11/18 Mesalamine [Apriso] 4 cap PO DAILY 02/11/18 Mirtazapine 15 mg PO HS 02/11/18 Mometasone/Formoterol [Dulera 200 Mcg/5 Mcg Inhaler] 2 puff IH BID PRN 02/11/18 Olanzapine 20 mg PO DAILY 02/11/18 Varenicline Tartrate [Chantix -] 1 tablet PO BID 02/11/18 traZODone HCL [Trazodone HCl] 100 mg PO HS PRN 02/11/18 Anemia: Yes COPD: Yes Diabetes: Yes GI Disorders: Yes (gerd) HTN: Yes Hypercholesterolemia: Yes - Surgical History Orthopedic Surgery: Yes (Right hip and Right knee) - Immunization History Immunization Up to Date: Yes - Suicide/Smoking/Psychosocial Hx Smoking History: Current every day smoker Have you smoked in the past 12 months: Yes Number of Cigarettes Smoked Daily: 10 'Breaking Loose' booklet given: 04/30/16 Hx Alcohol Use: No Drug/Substance Use Hx: No Review of Systems - Review of Systems Comments:: 02/10/18 17:57 Constitutional: No fevers, chills, fatigue, malaise HEENT: No Rhinorrhea, nasal congestion, visual changes Cardiovascular: No chest pain, syncope, palpitations, lightheadedness Respiratory: No Cough, SOB, Hemoptysis, Gastrointestinal: Abdominal pain, constipation. No Nausea, Vomiting, Diarrhea, Melena Genitourinary: No Dysuria, Frequency, Urgency, Hesitancy, Hematuria, Flank pain Musculoskeletal: No Myalgia, arthralgia Skin: No rashes, itching, bruising, pallor Neurologic: No Headache, Dizziness, Numbness, Weakness, or Tingling Psychiatric: No Hallucinations. No SI or HI *Physical Exam - Physical Exam Comments: 02/10/18 17:57 General Appearance: Nourished. In Mild Apparent Distress HEENT: No Pharyngeal Erythema, Tonsillar Exudate, Tonsillar Erythema Neck: No Cervical Lymphadenopathy Respiratory/Chest: Lungs Clear, Normal Breath Sounds. No Crackles, Rales, Rhonchi, Wheezing Cardiovascular: Regular Rhythm, Regular Rate. No Murmur, Gallops, Rubs Gastrointestinal/Abdominal: Normal Bowel Sounds, Soft. Left sided tenderness to palpation noted on exam. No Guarding, Rebound, Musculoskeletal: No CVA Tenderness Extremity: Normal Capillary Refill Integumentary: Normal Color, Dry, Warm Neurologic: Fully Oriented, Alert, Normal Mood/Affect, Normal Response, ED Treatment Course - LABORATORY CBC & Chemistry Diagram: 02/14/18 08:30 02/14/18 08:30 Medical Decision Making - Medical Decision Making 02/10/18 17:58 The patient is a 62 year old female with a history of HTN, HLD, DM, COPD, GERD, Colitis who presents for evaluation of abdominal pain. Differential includes but is not limited to: Colitis, diverticulitis, gastritis, pancreatitis, uti, Infections, Metabolic Derangement. Given the patient's history and physical exam, we will obtain a cbc, cmp, troponin, lipase, ua, ekg, CT abdomen/pelvis to evaluate further. We will treat with iv fluids, morphine and continue to monitor and reassess while here in the ED. 02/10/18 18:53 Patient signed out to the night team pending lab results and CT abdomen/pelvis. *DC/Admit/Observation/Transfer Diagnosis at time of Disposition: Pancreatitis, Schizophrenia, Hepatitis C, Abdominal pain - Discharge Dispostion Disposition: STILL A PATIENT Condition at time of disposition: Improved - Referrals - Patient Instructions - Post Discharge Activity
[2018-02-10] MEDS ORDERED: SODIUM CHLORIDE 1,000 ML IV STA (17:15)
[2018-02-10] MEDS ORDERED: morphine CARPU-JECT 4 MG/1 ML DISP.SYRIN IVPUSH ONE (17:15)
[2018-02-10 17:21] VITALS: BMI 30.9
--- NOTE | 2018-02-10 17:27 | PDOC ---
Attending Attestation - HPI HPI: 02/10/18 17:27 The patient is a 62 year old female, with a significant past medical history of hypertension, hyperlipidemia, diabetes, COPD, Colitis, who presents to the emergency department with 2 days of left sided abdominal pain. She describes the pain as sharp and similar to her prior experiences with colitis. She also reports constipation with her last normal BM 4 days ago. She states she has not been able to take her colitis medications. The patient denies chest pain, shortness of breath, headache and dizziness. The patient denies fever, chills, nausea, vomit, diarrhea and constipation. The patient denies dysuria, frequency, urgency and hematuria. - Medical Decision Making 02/10/18 17:28 Documentation prepared by Shelby Zafar, acting as medical housekeeper for Yelena Dukes MD <Shelby Zafar - Last Filed: 02/10/18 17:27> - Resident Resident Name: Santo Hernandez - ED Attending Attestation I have performed the following: I have examined & evaluated the patient, The case was reviewed & discussed with the resident, I agree w/resident's findings & plan, Exceptions are as noted - Physicial Exam PE: 02/10/18 18:43 Awake alert mild distress dry mucous membranes lungs are clear bilaterally heart is regular without any murmurs rubs or gallops abdomen is soft obese patient has left upper and left lower quadrant tenderness palpation does have involuntary guarding and some rebound extremities warm and well-perfused skin warm and dry neurologically the patient has awake and alert somewhat blunted affect somewhat disheveled 02/10/18 18:45 - Medical Decision Making 02/10/18 18:45 Differential diagnosis includes constipation obstruction perforated hollow viscus megacolon UTI Pyelo renal colic. Plan basic labs including a lactate pain control IV hydration CT abdomen and pelvis and UA <Yelena Dukes - Last Filed: 02/10/18 18:46>
[2018-02-10] MEDS ORDERED: morphine SULFATE 4 MG/ML VIAL ONE (18:45)
[2018-02-10 19:02] LABS: BASO % 0.1 % (0-2.0); EOS % 0.3 % (0-4.5); HEMATOCRIT 33.6 % (32.4-45.2); HEMOGLOBIN 11.4 GM/dL (10.7-15.3); LYMPH % 4.8 % (8-40); MCH 30.6 pg (25.7-33.7); MEAN CELL VOLUME 90.3 fl (80-96); MEAN PLT VOLUME 7.7 fl (7.5-11.1); MONO % 3.9 % (3.8-10.2); NEUT % 90.9 % (42.8-82.8); PLATELET COUNT 152 K/MM3 (134-434); RBC 3.72 M/mm3 (3.60-5.2); RDW 15.1 % (11.6-15.6); WHITE BLOOD COUNT 24.9 K/mm3 (4.0-10.0)
[2018-02-10 19:46] LABS: ALBUMIN 2.9 g/dl (3.4-5.0); ALK PHOS 91 U/L (45-117); ANION GAP 6 MMOL/L (8-16); BILIRUBIN,TOTAL 0.6 mg/dL (0.2-1); BLOOD UREA NITROGEN 22 mg/dL (7-18); CALCIUM 8.7 mg/dL (8.5-10.1); CHLORIDE 103 mmol/L (98-107); CO2 30 mmol/L (21-32); CREATININE 1.1 mg/dL (0.55-1.3); GLUCOSE,RANDOM 84 mg/dL (74-106); LIPASE 1120 U/L (73-393); POTASSIUM 4.8 mmol/L (3.5-5.1); SGOT/AST 16 U/L (15-37); SGPT/ALT 11 U/L (13-61); SODIUM 138 mmol/L (136-145)
[2018-02-10] MEDS ORDERED: CEFEPIME HCL/D5W 1 GM/50 ML BAG IVPB ONE (19:53)
--- NOTE | 2018-02-10 19:59 | PDOC ---
*Physical Exam - Vital Signs Last Vital Signs Temp Pulse Resp BP Pulse Ox 99.6 F 96 H 18 140/76 100 02/10/18 17:00 02/10/18 17:00 02/10/18 17:00 02/10/18 17:00 02/10/18 17:00 <Shelby Zafar - Last Filed: 02/10/18 23:23> - Vital Signs Last Vital Signs Temp Pulse Resp BP Pulse Ox 99.6 F 96 H 18 140/76 100 02/10/18 17:00 02/10/18 17:00 02/10/18 17:00 02/10/18 17:00 02/10/18 17:00 <Anastasia Tovar - Last Filed: 02/16/18 20:35> ED Treatment Course - LABORATORY CBC & Chemistry Diagram: 02/10/18 19:00 02/10/18 19:00 - ADDITIONAL ORDERS Additional order review: Laboratory Results 02/10/18 02/10/18 19:00 18:45 Sodium 138 Potassium 4.8 Chloride 103 Carbon Dioxide 30 Anion Gap 6 L BUN 22 H Creatinine 1.1 Creat Clearance w eGFR 50.01 Random Glucose 84 Lactic Acid 0.9 Calcium 8.7 Total Bilirubin 0.6 AST 16 ALT 11 L Alkaline Phosphatase 91 Creatine Kinase 42 Troponin I < 0.02 Total Protein 6.0 L Albumin 2.9 L Lipase 1120 H 02/10/18 19:00 RBC 3.72 MCV 90.3 MCHC 34.0 RDW 15.1 MPV 7.7 Neutrophils % 90.9 H Lymphocytes % 4.8 L D Monocytes % 3.9 Eosinophils % 0.3 D Basophils % 0.1 - RADIOLOGY Radiograph Interpretation: EXAM: ABDOMEN \T\ PELVIS CT W/O CONTR HISTORY: Pancreatitis COMPARISON: None. FINDINGS: Positive for acute pancreatitis. There is moderate peripancreatic inflammation predominantly body and tail. No pseudocyst at this time. No ascites. Liver has lobulated edges. This suggests cirrhosis. Normal spleen. Positive for gallstones in the gallbladder neck. Normal adrenal glands. Left renal cyst. No right or left urinary tract obstruction. No bowel obstruction or inflammation. There is an area of narrowing in the proximal transverse colon most likely due to peristalsis. However evaluate for large bowel neoplasm because the colon is feculent. This should be done with colonoscopy. No free intraperitoneal air. Right hip prosthesis. Severe degenerative disease left hip. Cannot exclude avascular necrosis left hip. Small hiatal hernia. Small left pleural effusion. 1.1 cm nodular density right lung base. Comparison with old scans and followup recommended to rule out neoplasm. Zaid Porter MD 02/10/2018 23:17 EST - Medications Given in the ED: ED Medications Discontinued Medications Generic Name Dose Route Start Last Admin Trade Name Freq PRN Reason Stop Dose Admin Sodium Chloride 1,000 mls @ 1,000 mls/hr 02/10/18 17:15 02/10/18 19:17 Normal Saline - IV 02/10/18 18:14 1,000 mls/hr ASDIR STA Administration Cefepime HCl 1 gm in 50 mls @ 100 mls/hr 02/10/18 19:53 02/10/18 22:42 Maxipime 1 Gm Premix Ivpb IVPB 02/10/18 20:22 100 mls/hr ONCE ONE Administration Protocol Metronidazole 500 mg in 100 mls @ 100 mls/hr 02/10/18 19:54 02/10/18 22:20 Flagyl 500mg Premixed Ivpb - IVPB 02/10/18 20:53 100 mls/hr ONCE ONE Administration Cefoxitin Sodium 2 gm/ 100 mls @ 200 mls/hr 02/10/18 21:00 02/10/18 20:32 Dextrose IVPB Not Given Q6H-IV AMANDA Protocol Morphine Sulfate 4 mg 02/10/18 17:15 02/10/18 18:30 Morphine Injection - IVPUSH 02/10/18 17:16 4 mg ONCE ONE Administration Morphine Sulfate 2 mg 02/10/18 23:17 02/10/18 23:22 Morphine Injection - IVPUSH 02/10/18 23:18 2 mg ONCE ONE Administration <Shelby Zafar - Last Filed: 02/10/18 23:23> - LABORATORY CBC & Chemistry Diagram: 02/14/18 08:30 02/14/18 08:30 - ADDITIONAL ORDERS Additional order review: Laboratory Results 02/10/18 02/10/18 19:00 18:45 Sodium 138 Potassium 4.8 Chloride 103 Carbon Dioxide 30 Anion Gap 6 L BUN 22 H Creatinine 1.1 Creat Clearance w eGFR 50.01 Random Glucose 84 Lactic Acid 0.9 Calcium 8.7 Total Bilirubin 0.6 AST 16 ALT 11 L Alkaline Phosphatase 91 Creatine Kinase 42 Troponin I < 0.02 Total Protein 6.0 L Albumin 2.9 L Lipase 1120 H 02/10/18 19:00 RBC 3.72 MCV 90.3 MCHC 34.0 RDW 15.1 MPV 7.7 Neutrophils % 90.9 H Lymphocytes % 4.8 L D Monocytes % 3.9 Eosinophils % 0.3 D Basophils % 0.1 - Medications Given in the ED: ED Medications Discontinued Medications Generic Name Dose Route Start Last Admin Trade Name Maria Esther PRN Reason Stop Dose Admin Sodium Chloride 1,000 mls @ 1,000 mls/hr 02/10/18 17:15 02/10/18 19:17 Normal Saline - IV 02/10/18 18:14 1,000 mls/hr ASDIR STA Administration Morphine Sulfate 4 mg 02/10/18 17:15 02/10/18 18:30 Morphine Injection - IVPUSH 02/10/18 17:16 4 mg ONCE ONE Administration <Anastasia Tovar - Last Filed: 02/16/18 20:35> Medical Decision Making - Medical Decision Making 02/10/18 19:50 Pt was signed out to me; we are continuing care. Pt has a WBC count of 24 and she has a lipase of 1100+; pancreatitis. 02/10/18 19:59 Patient Name: JAI VELEZ THIS IS A PRELIMINARY REPORT FROM [facility] EXAM: Ultrasound Pelvic Transvaginal Duplex scans ovaries (arterial/venous) imaging IMAGES: 25 EXAM DATE AND TIME: 2018-02-10 18:26:27 HISTORY: 33 year old woman: Rule out retained products of conception. LMP 2017. COMPARISON: None FINDINGS: There is abundant heterogeneous tissue within the endometrial canal measuring 6.3 x 3.1 x 4.6 cm, consistent with retained products of conception. The uterus is normal size, exhibits normal contours and echotexture. The uterus measures 10.5 x 7.3 cm. There is no free fluid within the posterior cul-de-sac. The right ovary measures 2.8 x 2.1 x 1.5 cm. Right ovarian arterial and venous blood flow is normal by color and spectral Doppler assessment. There are no ovarian masses or cysts. The left ovary is not visualized abdominal pain and overlying bowel. IMPRESSION: Abundant heterogeneous tissue within the endometrial canal measuring 6.3 x 3.1 x 4.6 cm, consistent with retained products of conception. 02/10/18 20:09 Dr. Sevilla is contract technical writer for clinic patients and she will admit the patient to [facility] and pt will be seen in the AM <Anastasia Tovar - Last Filed: 02/16/18 20:35> *DC/Admit/Observation/Transfer - Attestations Scribe Attestion: 02/10/18 23:24 Documentation prepared by Shelby Zafar, acting as medical records manager for Anastasia Tovar MD <Shelby Zafar - Last Filed: 02/10/18 23:23> - Discharge Dispostion Decision to Admit order: Yes <Anastasia Tovar - Last Filed: 02/16/18 20:35> Diagnosis at time of Disposition: Pancreatitis, Schizophrenia, Hepatitis C, Abdominal pain - Discharge Dispostion Disposition: STILL A PATIENT Condition at time of disposition: Improved
[2018-02-10] MEDS ORDERED: CEFEPIME 1 GM/100 ML BAG IVPB ONE (20:26)
[2018-02-10 20:48] LABS: PLATELET ESTIMATE DECREASED
[2018-02-10] MEDS ORDERED: CEFOXITIN SODIUM 2 GM in DEXTROSE 5%-WATER - 100 ML IVPB SCH (21:00)
[2018-02-10] MEDS ORDERED: DOXYCYCLINE INJECTION 100 MG in DEXTROSE 5%-WATER - 150 ML IVPB SCH (22:00)
[2018-02-10] MEDS ORDERED: MORPHINE SULFATE 2 MG/ML VIAL ONE (22:11)
[2018-02-10] MEDS ORDERED: LACTATED RINGERS SOLUTION 1,000 ML/1,000 ML INFUS.BAG IV STA (22:41)
[2018-02-10] MEDS ORDERED: morphine CARPU-JECT 2 MG/1 ML DISP.SYRIN IVPUSH ONE (23:17)
[2018-02-10] MEDS ORDERED: ONDANSETRON 4 MG/2 ML VIAL IVPUSH PRN (23:35)
[2018-02-10] MEDS ORDERED: PANTOPRAZOLE SODIUM 40 MG VIAL ONE (23:42)
[2018-02-10] MEDS ORDERED: ALBUTEROL SO4 8 GM HFA INHALER IH PRN (23:45)
[2018-02-10] MEDS ORDERED: OCTREOTIDE ACETATE 1,200 MCG in DEXTROSE 5%-WATER - 488 ML IVPB SCH (23:45)
--- NOTE | 2018-02-11 00:07 | HP ---
CHIEF COMPLAINT: Abdominal pain and coffee ground emesis PCP: none HISTORY OF PRESENT ILLNESS: 62 yo female with PMH HTN, HLD, GERD, NIDDM, COPD, Schizophrenia, Hep C (treated ), presented to the ED with a complaint of 2 days of left lower quadrant pain, coffee ground emesis X 4, unable to tolerate PO without any bowel movements for the last 4 days. She states her current pain is similar to a previous bout of colitis last year. She denies any fevers, chills, chest pain, SOB, weakness. ER course was notable for: (1) Lipase 1120, WBC 24.9 (2) 1L NS, Cefepime, Flagyl (3) CT abdomen pelvis noted with pancreatitis, gallstones Recent Travel: none PAST MEDICAL HISTORY: HTN, HLD, GERD, NIDDM, COPD, Schizophrenia, Hep C (treated) PAST SURGICAL HISTORY: Right total hip, right total knee, breast reduction Social History: Smoking: ppd for 35 yrs Alcohol: Former, denies presently Drugs: Denies Family History: Allergies haloperidol [From Haldol] Allergy (Verified 02/10/18 17:21) haloperidol lactate [From Haldol] Allergy (Verified 02/10/18 17:21) HOME MEDICATIONS: Home Medications Medication Instructions Recorded Albuterol Sulfate Inhaler - 2 inh PO Q4H 04/29/16 [Ventolin HFA Inhaler -] Albuterol Sulfate [Proventil HFA 1 - 2 inh PO QID 04/29/16 Inhaler -] Amlodipine Besylate 10 mg PO DAILY 04/29/16 Ascorbic Acid [C-500] 500 mg PO BID 04/29/16 Aspirin [ASA -] 81 mg PO DAILY 04/29/16 Atorvastatin Ca [Lipitor] 20 mg PO HS 04/29/16 Calcium Carbonate/Vitamin D3 1 each PO DAILY 04/29/16 [Calcium 600 + Vit D Tablet] Cyclobenzaprine HCl [Amrix] 10 mg PO TID 04/29/16 Gabapentin [Neurontin] 300 mg PO HS 04/29/16 Lactulose (Oral Use) [Cephulac -] 20 gm PO TID 04/29/16 Mesalamine [Delzicol] 400 mg PO QID 04/29/16 Metoprolol Succinate [Toprol Xl] 50 mg PO DAILY 04/29/16 Mometasone/Formoterol [Dulera 200 2 inh IH BID 04/29/16 Mcg/5 Mcg Inhaler] Omeprazole 20 mg PO DAILY 04/29/16 Oxycodone HCl/Acetaminophen 1 each PO QID 04/29/16 [Percocet 10-325 mg Tablet] Quetiapine Fumarate [Quetiapine 800 mg PO HS 04/29/16 Fumarate ER] Zolpidem Tartrate [Ambien] 10 mg PO HS 04/29/16 Acetaminophen [Tylenol .Regular 650 mg PO Q6H PRN #0 tablet 05/01/16 Strength -] Oxycodone HCl/Acetaminophen 1 - 2 tab PO Q6H #20 tablet MDD 4 07/13/16 [Percocet 5-325 mg Tablet] levoFLOXacin [Levaquin -] 500 mg PO DAILY #7 tablet 07/13/16 metroNIDAZOLE [Flagyl -] 500 mg PO BID #14 tablet 07/13/16 REVIEW OF SYSTEMS CONSTITUTIONAL: Absent: fever, chills, diaphoresis, generalized weakness, malaise, loss of appetite, weight change HEENT: Absent: rhinorrhea, nasal congestion, throat pain, throat swelling, difficulty swallowing, mouth swelling, ear pain, eye pain, visual changes CARDIOVASCULAR: Absent: chest pain, syncope, palpitations, irregular heart rate, lightheadedness , peripheral edema RESPIRATORY: Absent: cough, shortness of breath, dyspnea with exertion, orthopnea, wheezing, stridor, hemoptysis GASTROINTESTINAL: abdominal pain, nausea, vomiting, constipation Absent: , abdominal distension diarrhea,, melena, hematochezia GENITOURINARY: Absent: dysuria, frequency, urgency, hesitancy, hematuria, flank pain, genital pain MUSCULOSKELETAL: Absent: myalgia, arthralgia, joint swelling, back pain, neck pain SKIN: Absent: rash, itching, pallor HEMATOLOGIC/IMMUNOLOGIC: Absent: easy bleeding, easy bruising, lymphadenopathy, frequent infections ENDOCRINE: Absent: unexplained weight gain, unexplained weight loss, heat intolerance, cold intolerance NEUROLOGIC: Absent: headache, focal weakness or paresthesias, dizziness, unsteady gait, seizure, mental status changes, bladder or bowel incontinence PSYCHIATRIC: Absent: anxiety, depression, suicidal or homicidal ideation, hallucinations. PHYSICAL EXAMINATION Vital Signs - 24 hr 02/10/18 17:00 Temperature 99.6 F Pulse Rate 96 H Respiratory 18 Rate Blood Pressure 140/76 O2 Sat by Pulse 100 Oximetry (%) GENERAL: A&O, mild acute distress HEAD: Normocephalic, atraumatic. EYES: PERRL, no scleral icterus EARS, NOSE, THROAT: oropharynx clear without exudates. Moist mucous membranes. NECK: supple without lymphadenopathy LUNGS: CTA b/l, no crackles or wheezes HEART: Regular rate and rhythm, normal S1 and S2 without murmur ABDOMEN: Soft, tender to palpation diffusely, worse in the epigastric region MUSCULOSKELETAL: No bony deformities or tenderness. EXTREMITIES: 2+ pulses, warm, well-perfused. No peripheral edema. NEUROLOGICAL: Cranial nerves II-XII grossly intact. Normal speech. PSYCHIATRIC: Cooperative. Good eye contact. Appropriate mood and affect. Laboratory Results - last 24 hr 02/10/18 02/10/18 02/10/18 18:45 19:00 19:00 WBC 24.9 H RBC 3.72 Hgb 11.4 Hct 33.6 MCV 90.3 MCH 30.6 MCHC 34.0 RDW 15.1 Plt Count 152 MPV 7.7 Absolute Neuts (auto) 22.7 H Total Counted 100 Neutrophils % 90.9 H Neutrophils % (Manual) 90.0 H Lymphocytes % 4.8 L D Lymphocytes % (Manual) 7.0 L Monocytes % 3.9 Monocytes % (Manual) 3 L Eosinophils % 0.3 D Basophils % 0.1 Nucleated RBC % 0 Platelet Estimate Decreased Platelet Comment No clumping noted Sodium 138 Potassium 4.8 Chloride 103 Carbon Dioxide 30 Anion Gap 6 L BUN 22 H Creatinine 1.1 Creat Clearance w eGFR 50.01 Random Glucose 84 Lactic Acid 0.9 Calcium 8.7 Total Bilirubin 0.6 AST 16 ALT 11 L Alkaline Phosphatase 91 Creatine Kinase 42 Troponin I < 0.02 Total Protein 6.0 L Albumin 2.9 L Lipase 1120 H ASSESSMENT/PLAN: 62 yo female with PMH HTN, HLD, GERD, NIDDM, COPD, Schizophrenia, Hep C (treated ), presented to the ED with a complaint of 2 days of left lower quadrant pain, coffee ground emesis X 4, unable to tolerate PO without any bowel movements for the last 4 days. Coffee ground emesis, possible Esophagitis vs varices vs Upper GI bleed -Pt states 4 episodes of black vomiting prior to presentation in the ED -Pt states normal colonoscopy one year ago, and EGD done at 17, does not remember the results or why it was performed -H/H stable -Repeat CBC Q6H -Telemetry -Strict NPO including hold PO meds until r/o or advanced by GI -GI consult ordered -Protonix Drip -Sandistatin Drip Pancreatitis vs Colitis -CT noted with pancreatitis seen, no pseudocyst or ascites seen, positive gallstones in the gallbladder neck -Lipase borderline just below 3X upper limit normal, 1120 -RUQ U/S for assessment of Common Bile Duct -MRCP -WBC count noted 24.9 -Will cover empirically with Levaquin/Flagyl -Zofran 4 mg IV Q6 -NPO -LR @ 100 cc/hr Constipation -Extensive stool noted on CT scan, with clinical hx of constipation -Colace and Miralax for now and can give enema or suppository as needed if does not resolve HTN -Hold PO meds for now -Monitor b.p. and HR for B-ruthie withdrawal -Consider IV if needed HLD -Hold PO Lipitor NIDDM -BGMs ACHS -Insulin sliding scale for glycemic control GERD -Protonix as above COPD -PRN Albuterol -Will discuss with pharmacy about Dulera as it is non-formulary Schizophrenia -Hold PO meds for now -Pt with allergy listed to haldol DVT Prophylaxis -Lovenox 40 mg SQ Daily FEN -Fluids: LR @ 100 cc/hr -Electrolytes: No electrolyte abnormalities, BMP in AM -Nutrition: Strict NPO Disposition Telemetry Visit type - Emergency Visit Emergency Visit: Yes ED Registration Date: 02/10/18 Care time: The patient presented to the Emergency Department on the above date and was hospitalized for further evaluation of their emergent condition. - New Patient This patient is new to me today: Yes Date on this admission: 02/11/18 - Critical Care Critical Care patient: No
[2018-02-11] MEDS: LACTATED RINGERS SOLUTION 1,000 ML/1,000 ML INFUS.BAG IV SCH (00:27)
[2018-02-11] MEDS: PANTOPRAZOLE SODIUM 80 MG in SODIUM CHLORIDE 100 ML IVPB SCH ×2 (00:28→11:21)
[2018-02-11] MEDS ORDERED: POLYETHYLENE GLYCOL 3350 119 GM BTL PO ONE (00:46)
--- NOTE | 2018-02-11 01:16 | PN ---
Teaching Attending Note Name of Resident: Moris Roy ATTENDING PHYSICIAN STATEMENT I saw and evaluated the patient. I reviewed the resident's note and discussed the case with the resident. I agree with the resident's findings and plan as documented. SUBJECTIVE: Seen and examined at bedside. She is a 62 y/o AAF with a complex history of hepatitis C who does not currently follow with GI, HTN, HLD, Schizohrenia, COPD (current smoker), prior colitis who presents with abdominal pain, nausea, and coffee ground emesis x4. She has had these sx for 1 day; nothing makes better or worse, hasn't seen any other providers. NO alleviating measures takne. Waited all day to be seen due to her hoping it would get better on her own. No prior GI bleed history; has had a colonoscopy at OSH, never had an EGD. She is afebrile and hemodynamically stable; elevated lipase in ER agrees with CT finding of pancreatitis. Hb normal. Got fluids and abx in the ER; no clear source of infection. Bringing to the floor on medicine service for further treatment and monitoring for Acute Pancreatitis and Coffee Ground emesis and given the risk of bleed with decompensation will monitor on tele only overnight to ensure her HR doesn't go up. She does take ASA. 10 sys ROS done and negative aside from HPI PMH and PSH reviewed FH asked and noncontributory Social history significant for compliance with meds; nonsmoker Meds reviewed with resident OBJECTIVE: VS, labs, imaging reviewed NAD, resting in bed Tender in upper abdomen, nondistended, +BS, due to habitus and pain couldnt assess for organomegaly RRR s1/2 no mgr No JVD, no peripheral edema CN2-12 wnl, no fnd NC AT EOMI PERRLA Normal mood, appropriate behavior Labs show elevated lipase ~3x ULN, LFTs wnl, WBC [address] shows pancreatitis with stone in neck of GB; need to follow up on final read as not available. EKG reviewed; no suspicious ST-T changes, intervals OK ASSESSMENT AND PLAN: Mrs. Cavazos presents for abdominal pain; found to have pancreatitis with stone in GB neck alongside a leukocytosis. 1) Acute Gallstone Pancreatitis -Evidenced by elevated lipase, clinical picture, imaging. -Hydrating aggressively with 120cc/hr LR; pain control and nausea control -Prelim read didn't describe diameter of ducts, etc with CT. Will order RUQ US for now and MRCP for AM and GI/sgy consult in the AM -Given leukocytosis it is difficult to say for certain if there is an infection or not; would suspect if positive would cover for biliary source. Placing on Levaquin/Metronidazole and followup the blood cultures, then continuing abx as needed. 2) Coffee Ground Emesis -Given her history of cirrhosis and no history of any EGD I have no way of knowing her esophageal anatomy. Given the chances of elevated portal pressure I will opt to be safe and give both sandostatin and protonix, trend CBC q6H, change meds to IV with strict NPO, and consult GI. Ddx would be broad. Checking FOBT. She is not having diarrhea, BRB, etc. so this is arguing against massive upper GI bleed. Holding ASA, not on any other anticoag. Describes 4x, none since she has come to ER 3) H/O COPD, current smoker; not in exacerbation -Dairy Farmworker on tobacco use; no PFTs to classify disease. Would recommend OP followup with possible OP pulm referral given her complex case -Continue home inhaled medications 4) Hx HTN -Hold PO meds; resume when clinically appropriate. 5) HLD -Hold PO meds; resume when clinically appropriate 6) Schizophrenia -Hold PO seroquel, resume when is cleared for PO. IV Haldol in the meantime. Should note that she is on the max dose of seroquel so she should have her qTC checked once she resumes this if she continues on levaquin. 7) Constipation -No meds to be given; DC'd. She is potentially having an upper GIB. 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 Cirrhosis seen on CT scan and this increases her risk of portal HTN, varices. 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 10) Left Pleural Effusion -Seen incidentally on CT; very small. Follow up clinically and consider repeating radiologic study 11) Area of narrowing in proximal transverse colon -Consider evaluation for bowel neoplasm; obtain her old colonoscopy report and consider colonoscopy. -Radiologist comments that this finding could be 2/2 peristalsis. 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 -If she does have AVN consider tx options and ortho consult. 13) Lung Nodule (R-lung base) -1.1cm nodular density seen; she is a current smoker. Need to obtain old scans , etc. to r/o neoplastic process. Find out further radiographic history of the nodule and then followup further history as OP. FENA -LR@120 -PRN replete -NPO -As tolerated Full Code
[2018-02-11] MEDS ORDERED: morphine SULFATE 4 MG/ML VIAL ONE ×4 (02:10→17:27)
[2018-02-11 02:49] LABS: HEMATOCRIT 30.7 % (32.4-45.2); HEMOGLOBIN 10.2 GM/dL (10.7-15.3); MCH 30.2 pg (25.7-33.7); MCHC 33.1 g/dl (32.0-36.0); MEAN PLT VOLUME 8.2 fl (7.5-11.1); PLATELET COUNT 164 K/MM3 (134-434); RBC 3.37 M/mm3 (3.60-5.2); WHITE BLOOD COUNT 21.5 K/mm3 (4.0-10.0)
[2018-02-11] MEDS: morphine SULFATE 4 MG/ML VIAL IVPUSH PRN ×5 (03:15→22:59)
[2018-02-11 03:35] LABS: MAGNESIUM 1.7 mg/dL (1.8-2.4)
[2018-02-11 05:46] LABS: HEMATOCRIT 32.2 % (32.4-45.2); MCH 28.6 pg (25.7-33.7); MEAN CELL VOLUME 92.1 fl (80-96); MEAN PLT VOLUME 7.4 fl (7.5-11.1); PLATELET COUNT 129 K/MM3 (134-434); RDW 14.7 % (11.6-15.6)
[2018-02-11 06:10] LABS: ALBUMIN 2.5 g/dl (3.4-5.0); ALK PHOS 86 U/L (45-117); ANION GAP 8 MMOL/L (8-16); BILIRUBIN,TOTAL 0.5 mg/dL (0.2-1); BLOOD UREA NITROGEN 14 mg/dL (7-18); CALCIUM 8.1 mg/dL (8.5-10.1); CHLORIDE 104 mmol/L (98-107); CO2 26 mmol/L (21-32); CREATININE 0.8 mg/dL (0.55-1.3); GLUCOSE,RANDOM 99 mg/dL (74-106); POTASSIUM 4.1 mmol/L (3.5-5.1); SGOT/AST 12 U/L (15-37); SGPT/ALT 10 U/L (13-61); SODIUM 138 mmol/L (136-145); TOT PROT 5.3 g/dl (6.4-8.2)
[2018-02-11] MEDS ORDERED: INSULIN (NOVOLOG) ASPART 100 UNITS/ML 10ML VIAL ONE (06:21)
[2018-02-11] MEDS: INSULIN SLIDING SCALE (NOVOLOG) 1 VIAL SQ SCH ×2 (06:34→11:33)
[2018-02-11] MEDS ORDERED: INSULIN SLIDING SCALE (NOVOLOG) 1 VIAL SQ SCH (07:00)
[2018-02-11] MEDS ORDERED: MAGNESIUM OXIDE 400 MG TABLET (FP) PO ONE (08:23)
[2018-02-11] MEDS ORDERED: PIPERACILLIN/TAZOB 3.375 GM 3.375 GM in DEXTROSE 5%-WATER - 50 ML IVPB SCH (08:30)
[2018-02-11] MEDS ORDERED: PIPERACILLIN/TAZOB 3.375 GM 3.375 GM/50 ML BAG IVPB ONE ×2 (08:45→16:59)
[2018-02-11] MEDS ORDERED: MAGNESIUM OXIDE 400 MG TABLET (FP) ONE (08:45)
--- NOTE | 2018-02-11 09:10 | PN ---
Physical Exam: SUBJECTIVE: Patient is a 62 y/o female with history of HTN, HLD, GERD, NIDD, COPD, Schizophrenia, Hep C ( treated), admitted for coffe ground emesis and abdominal pain. Patient is very somnolent on exam. Reports she still has pain and feels nauseous. Patient continued to fall asleep during examination. OBJECTIVE: Vital Signs Temperature 98.1 F 02/11/18 06:37 Pulse Rate 92 H 02/11/18 06:37 Respiratory Rate 20 02/11/18 06:37 Blood Pressure 130/53 L 02/11/18 06:37 O2 Sat by Pulse Oximetry (%) 95 02/11/18 06:37 GENERAL: The patient is somnolent HEAD: Normal with no signs of trauma. LUNGS: Breath sounds equal, clear to auscultation bilaterally, no wheezes, no crackles, no accessory muscle use. HEART: Regular rate and rhythm, S1, S2 without murmur, rub or gallop. ABDOMEN: diffusely tender, bowel sounds present EXTREMITIES: 2+ pulses, warm, well-perfused, no edema. PSYCH: Normal mood, normal affect. SKIN: Warm, dry, normal turgor, no rashes or lesions noted CBC, BMP 02/11/18 05:10 02/11/18 05:10 Active Medications Albuterol Sulfate (Ventolin Hfa Inhaler -) 2 puff IH Q4H PRN PRN Reason: SHORTNESS OF BREATH Enoxaparin Sodium (Lovenox -) 40 mg SQ DAILY [facility] Lactated Ringer's (Lactated Ringers Solution) 1,000 ml in 1,000 mls @ 100 mls/ hr IV ASDIR AMANDA Last Admin: 02/11/18 00:27 Dose: 100 mls/hr Pantoprazole Sodium 80 mg/ (Sodium Chloride) 100 mls @ 10 mls/hr IVPB Q10H AMANDA Last Admin: 02/11/18 00:28 Dose: 10 mls/hr Octreotide Acetate 1,200 mcg/ (Dextrose) 500 mls @ 20.83 mls/hr IVPB ASDIR AMANDA Last Admin: 02/11/18 03:06 Dose: 20.83 mls/hr Piperacillin Sod/Tazobactam (Sod 3.375 gm/ Dextrose) 50 mls @ 100 mls/hr IVPB Q6H [facility]; Protocol Stop: 02/12/18 08:29 Insulin Aspart (Novolog Vial Sliding Scale -) 1 vial SQ ACHS AMANDA; Protocol Last Admin: 02/11/18 06:34 Dose: Not Given Morphine Sulfate (Morphine Sulfate) 4 mg IVPUSH Q4H PRN PRN Reason: PAIN LEVEL 6-10 Last Admin: 02/11/18 06:35 Dose: 4 mg Non-Formulary Medication (Mometasone/Formoterol [Dulera 200 Mcg/5 Mcg Inhaler]) 2 inh IH BID AMANDA Ondansetron HCl (Zofran Injection) 4 mg IVPUSH Q6H PRN PRN Reason: NAUSEA ASSESSMENT/PLAN: Patient is a 62 y/o female with history of HTN, HLD, GERD, NIDD, COPD, Schizophrenia, Hep C ( treated), admitted for coffee ground emesis and abdominal pain. #coffee ground emesis, cannot r/o esophagitis vs varices vs upper GI bleed - hgb stable : 11 > 10> 11 - monitor on tele - patient NPO for now - octreotride drip - protonix drip - FOBT negative - f/u EGD for varicies, unlikely acute bleed with stable labs and normal BUN/ Cr ratio #abdominal pain 2/2 to pancreatitis vs cholelithias, acute gallstone pancreatitis - abd US: cholelthiasis, mildly dilated CBD - Abd/Pelvis CT: acute pancreatitis, tiny gallstones without evidence of cholecystitis, without evidence of colitis - f/u MRCP, g/u EGD - WBC: 21 - continue patient on Zosyn - LR @ 100 - Zofran 4 mg q6h - lipase: 1120 - f/u UA - ID; Dr. Hernandez - GI; Dr. Fish - Surgery; Dr. Cunningham #constipation - stool noted on CT, continue colace and miralax #DM - BGM achs - SS #HTN - hold BP meds for now #HLD - hold po lipitor #COPD - continue albuterol - stable #Schizophrenia - po meds held for now #DVT ppx - Lovenox 40 mg sq FEN - Mg repleted - LR @ 100 Dispo: f/u MRCP, likely gallstone pancreatitis Visit type - Emergency Visit Emergency Visit: Yes ED Registration Date: 02/10/18 Care time: The patient presented to the Emergency Department on the above date and was hospitalized for further evaluation of their emergent condition. - New Patient This patient is new to me today: Yes Date on this admission: 02/11/18 - Critical Care Critical Care patient: No
[2018-02-11] MEDS ORDERED: DOCUSATE SODIUM 100 MG CAPSULE (FP) PO SCH (10:00)
[2018-02-11] MEDS ORDERED: PATIENT'S OWN MEDICATION (NON-FORMULARY) (Mometasone/Formoterol [Dulera 200 Mcg/5 Mcg Inha IH SCH (10:00)
[2018-02-11] MEDS ORDERED: ENOXAPARIN NA (PORCINE) 40 MG/0.4 ML DISP.SYRIN SQ SCH (10:00)
[2018-02-11] MEDS ORDERED: POLYETHYLENE GLYCOL 3350 119 GM BTL PO SCH (10:00)
--- NOTE | 2018-02-11 11:15 | EKG ---
Test Reason : Blood Pressure : / mmHG Vent. Rate : 098 BPM Atrial Rate : 098 BPM P-R Int : 142 ms QRS Dur : 076 ms QT Int : 334 ms P-R-T Axes : 069 067 064 degrees QTc Int : 426 ms NORMAL SINUS RHYTHM NORMAL ECG WHEN COMPARED WITH ECG OF 13-JUL-2016 04:08, NO SIGNIFICANT CHANGE WAS FOUND Confirmed by RA WALTERS MD ([id number]) on 02/11/2018 11:15:19 AM Referred By: Confirmed By:RA WALTERS MD
--- NOTE | 2018-02-11 11:30 | PN ---
Teaching Attending Note Name of Resident: Morena Chavez ATTENDING PHYSICIAN STATEMENT I saw and evaluated the patient. I reviewed the resident's note and discussed the case with the resident. I agree with the resident's findings and plan as documented. SUBJECTIVE: still has abd pain ( especially in upper abdomen. has no N/V while here. reports dark brown /dark emesis x 4 days . No fever or chills. no GI follow up. she is unsure if her Hep C was treated. denies alcohol use, no recent drug use ( heroin at age 15). no diarrhea. no BM in 4 days . no dysuria OBJECTIVE: NAD, lethargic but arousable. mainly cooperative HEENT: EOMI, round pupils, 1 mm in diameter, sluggish reation to light. no facial droop, dry MM. CV: RRR, 2/6 SM at LUSB. no JVD Lungs: CTAB Abd: soft, ND, obese, TTP in all quadrants especially in RUQ and epigastric area. hypoactive BS.no hepatomegaly. Ext: camryn manuel . old track signs on her fore arms. no fungal infection in inter- digital webs Skin : no decubitus ulcers on sacral area ASSESSMENT AND PLAN: 62 y/o lady with h/o Hep C ( ? treated), Schizophrenia, COPD,colitis, and HLP who presented with abd pain, coffee ground emesis and was found tohave acute pancreatitis. 1- Coffee ground emesis: ? upper GI bleed . has signs of cirrhosis on CT scan, but no h/o upper GI bleed, or esophageal bleed. DDx includes peptc ulcer, gastritis, or varices. Hb dropped 1.4 g since presentation. Hb base line 11 - unfortunately rectal exam was done yet, it will be done by resident - check for OB. - cont PPI gtt - started on Octeriotide gtt. cont awaiting GI Recs - ? EGD - follow HB q 6 hrs for now 2- Acute pancreatitis: likely due to gall stones . no alcohol abuse . - IVF - NPO for now - Sx consult to evaluate for CCY 3- Leukocytosis: unclear of source, no evidence of acute cholecystitis on US. Chakraborty's was positive during US exam. UA not done yet. CT w/o contrast showed no signs fo colitis , and abd is not specifically tender in certain area. no signs of PNA on cxray or clinically . dilation in CBD but no LFTS abn or fever . doubt cholangitis - straight cath for UA, if + , then urine cx - dc levaquin and flagyl start zosyn - send blood cx - check c diff. - MRCP to evaluate for CBD stones , give buster - consutl GI. d/w Dr. Dominguez 4- volume depletion : cont IVF 5- h/o HTN: hold meds for now 6- R lung nodule, and L renal cyst. f/u as out pt dispo : HLOC mechanical DVT px. dc lovenox
--- NOTE | 2018-02-11 11:36 | CON.GI ---
Consult Consult Specialty:: Gastroenterology Referred by:: Dr. Goldberg Reason for Consultation:: Acute pancreatitis, possible gallstone etiology - History of Present Illness Chief Complaint: Abdominal pain History of Present Illness: 62 year old woman with sudden onset of severe abdominal pain 4 days ago. Constant in nature. No radiation. Decerased PO intake and episodic vomiting since. No fever, sweat, chill, eye yellowing. Initially with some diarrhea, now resolved. Didn't eat anything unusual. No sick contacts. In ED noted to have elevated lipase and normal liver chemistries. Gallstones and slightly dilated CBD on US (along with report of 'sonographic Chakraborty's sign.') Of note, additional reports of coffee ground emesis--patient does report dark material, but no jaci blood. - History Source History Provided By: Patient - Past Medical History Cardio/Vascular: Yes: HTN, Hyperlipdemia Pulmonary: Yes: COPD Gastrointestinal: Yes: GERD Hepatobiliary: Yes: Cirrhosis, Hepatitis C Psych: Yes: Schizophrenia Endocrine: Yes: Diabetes Mellitus - Alcohol/Substance Use Hx Alcohol Use: No - Smoking History Smoking history: Current every day smoker Have you smoked in the past 12 months: Yes Aproximately how many cigarettes per day: 10 Home Medications - Allergies Allergies/Adverse Reactions: Allergies Allergy/AdvReac Type Severity Reaction Status Date / Time haloperidol [From Haldol] Allergy Verified 02/10/18 17:21 haloperidol lactate Allergy Verified 02/10/18 17:21 [From Haldol] - Home Medications Home Medications: Ambulatory Orders Albuterol Sulfate Inhaler - [Ventolin HFA Inhaler -] 2 inh PO Q4H 04/29/16 Albuterol Sulfate [Proventil HFA Inhaler -] 1 - 2 inh PO QID 04/29/16 Amlodipine Besylate 10 mg PO DAILY 04/29/16 Ascorbic Acid [C-500] 500 mg PO BID 04/29/16 Aspirin [ASA -] 81 mg PO DAILY 04/29/16 Atorvastatin Ca [Lipitor] 20 mg PO HS 04/29/16 Calcium Carbonate/Vitamin D3 [Calcium 600 + Vit D Tablet] 1 each PO DAILY Cyclobenzaprine HCl [Amrix] 10 mg PO TID 04/29/16 Gabapentin [Neurontin] 300 mg PO HS 04/29/16 Lactulose (Oral Use) [Cephulac -] 20 gm PO TID 04/29/16 Mesalamine [Delzicol] 400 mg PO QID 04/29/16 Metoprolol Succinate [Toprol Xl] 50 mg PO DAILY 04/29/16 Mometasone/Formoterol [Dulera 200 Mcg/5 Mcg Inhaler] 2 inh IH BID 04/29/16 Omeprazole 20 mg PO DAILY 04/29/16 Oxycodone HCl/Acetaminophen [Percocet 10-325 mg Tablet] 1 each PO QID 04/29/16 Quetiapine Fumarate [Quetiapine Fumarate ER] 800 mg PO HS 04/29/16 Zolpidem Tartrate [Ambien] 10 mg PO HS 04/29/16 Acetaminophen [Tylenol .Regular Strength -] 650 mg PO Q6H PRN #0 tablet Oxycodone HCl/Acetaminophen [Percocet 5-325 mg Tablet] 1 - 2 tab PO Q6H #20 tablet MDD 4 07/13/16 levoFLOXacin [Levaquin -] 500 mg PO DAILY #7 tablet 07/13/16 metroNIDAZOLE [Flagyl -] 500 mg PO BID #14 tablet 07/13/16 Review of Systems - Review of Systems Constitutional: reports: Lethargy. denies: Chills, Diaphoresis, Fever Eyes: denies: Other (NO yellowing of eyes) Gastrointestinal: reports: Abdominal Pain Physical Exam-GI Vital Signs: Vital Signs Temperature 99.8 F H 02/11/18 11:18 Pulse Rate 92 H 02/11/18 11:18 Respiratory Rate 18 02/11/18 11:18 Blood Pressure 119/60 02/11/18 11:18 O2 Sat by Pulse Oximetry (%) 92 L 02/11/18 11:18 Constitutional: Yes: Obese Eyes: Yes: Conjunctiva Clear. No: Sclera Icterus HENT: Yes: WNL Neck: Yes: WNL Cardiovascular: Yes: Regular Rate and Rhythm, S1, S2 Respiratory: Yes: WNL Gastrointestinal Inspection: Yes: WNL ...Auscultate: Yes: Normoactive Bowel Sounds ...Palpate: Yes: Tenderness (diffuse, mild) Labs: CBC, BMP 02/11/18 05:10 02/11/18 05:10 Imaging - Results Cat Scan: Report Reviewed Ultrasound: Report Reviewed Assessment/Plan History, physical and imaging findings all consistent with acute pancreatiiis, likely of gallstone etiology. Given 4 days of symptoms and lack of melena, while coffee ground emesis reported, doubt acute GI bleed given stable vitals, normal Hgb, and lack of elevated BUN/Cr ratio. Suggest:1. Urgent MRCP to evaluate for obstucting or common duct gallstone though live chemistries normal. 2. EGD to assess for varices in setting of Hep C cirrhosis (though uncertain on what basis cirrhosis has been determined; while albumin low, platelet count greater than 100K), normal liver, albeit borderline enalarged on imaging). 3. Would continue with PPI and Octreotide drip for now pending EGD result.
--- NOTE | 2018-02-11 12:10 | PN ---
Progress Note (short form) - Note Progress Note: ID Consult dictated Acute gall stone pancreatitis Fever/ leukocytosis R/O biliary sepsis Thrombocytopenia secondary to sepsis Diabetes mellitus Obtain BC GI evaluation Empiric zosyn HIV testing (pt consents)
--- NOTE | 2018-02-11 12:51 | CONS ---
DATE OF CONSULTATION: 02/11/2018 INFECTIOUS DISEASE CONSULTATION The patient is a 62-year-old diabetic female evaluated for acute pancreatitis. She was admitted to the hospital with a 2-day history of worsening abdominal pain. The patient developed epigastric and right upper quadrant abdominal pain after consuming a meal of oxtail. She developed nausea and vomiting. She also complains of subjective fever and chills. Patient had not had a bowel movement for 4 days prior to admission. However, she reports that this is not abnormal for her. She was evaluated in the emergency room where she developed episodes of hematemesis. A CAT scan of the abdomen and pelvis was consistent with acute pancreatitis. Sonogram shows cholelithiasis with a stone at the gallbladder neck and a slightly dilated common bile duct. In the emergency room, she was noted to have low-grade fever and an elevated white blood cell count of 24.9. No blood cultures were obtained. She was empirically treated with Zosyn, cefepime, doxycycline, and Levaquin. At the present time, she is awake and alert. She is supine on the stretcher in the emergency room. She complains of sharp epigastric pain. PAST MEDICAL HISTORY: Positive for [id number] diabetes mellitus, hypertension, hyperlipidemia, COPD, gastroesophageal reflux, colitis, history of hepatitis C in the past treated by history, history of schizophrenia. ALLERGIES: TO HALDOL. MEDICATIONS: Include Ventolin, amlodipine, aspirin, Lipitor, Neurontin, lactulose, metoprolol, omeprazole. PAST SURGICAL HISTORY: Status post right total hip replacement, right total knee replacement, breast reduction. SOCIAL HISTORY: She lives at home alone. Former smoker. Former history of EtOH. Denies risks factors for HIV, states she tested negative in the past. However, is agreeable to repeat testing. SYSTEM REVIEW: Neurologic: No loss of consciousness, seizure activity, or focal weakness. Cardiac: Negative chest pain or palpitations. Respiratory: Negative cough or sputum production. Gastrointestinal: As per HPI. Genitourinary: Negative for urinary tract infection. LABORATORY DATA: White count 24.9 and 90% neutrophils, 5 lymphocytes, 4 monocytes. BUN 14, creatinine 0.8. Glucose 99. Lipase 1120. Urinalysis is pending. PHYSICAL EXAMINATION: General: She is awake in moderate distress secondary to abdominal pain. Vital Signs: Temperature 99.8, blood pressure 119/60, pulse 92 regular, respirations 18 per minute. Eyes: Sclerae anicteric. Dry mucous membranes. Heart: Sounds S1, S2. No murmur. Lungs: Clear. Abdomen: Positive bowel sounds. Positive epigastric and right upper quadrant tenderness to palpation. Positive Chakraborty sign. Extremities: Negative for edema. Skin: There are multiple healed scars from lacerations present on the upper extremities and abdomen which were self-inflicted. IMPRESSION: 1. Acute gallstone pancreatitis. 2. Fever with leukocytosis possible sepsis secondary to biliary tract source. 3. Thrombocytopenia secondary to sepsis 4. Diabetes mellitus. PLAN: 1. Obtain blood cultures. 2. GI evaluation for MRCP, possible ERCP. 3. Empiric coverage biliary tract pathogens with Zosyn. 4. HIV testing. Patient gives verbal consent. 5. Will follow. Thank you for the kind referral. MARCELA POZO M.D. [id number]
--- NOTE | 2018-02-11 13:03 | CONSULT ---
- Consultation REQUESTING PROVIDER: CONSULT REQUEST: We have been asked to surgically evaluate this patient for ( gallstone pancreatitis). PCP:Ashlyn Pineda HISTORY OF PRESENT ILLNESS: 62 y/o F w/ PMhx HTN, HLD, GERD, NIDDM, COPD, Schizophrenia, morbidly obese, Hep C (treated), presenting to the ED c/oo LLQ pain, and grogginess since . Pt reports upon waking AM she felt groggy and went back to sleep. Pt reports she was unable to get out of bed Sunday or Sunday due to exhaustion and confusion. Reports that she was not able to hear her [employer] when she came last week. Pts brother came to her apartment over the weekend as he was concerned after he could not get in touch with her. Pt reports last BM was 4 days ago, denies any diarrhea. Has not had any PO over the weekend, denies nausea or vomiting. Reports 4 episodes of coffee ground emesis. Denies any fevers, chills, chest pain, SOB, weakness. CT abdomen pelvis noted with pancreatitis, gallstones. Surgery consulted for further evaluation. 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 Ambulates in a wheelchair. ER course was notable for Lipase 1120, WBC 24.9 PMHx: as above PSHx: R hipe FX? (2005 at [facility]) Home Medications Medication Instructions Recorded Albuterol Sulfate Inhaler - 2 inh PO Q4H 04/29/16 [Ventolin HFA Inhaler -] Albuterol Sulfate [Proventil HFA 1 - 2 inh PO QID 04/29/16 Inhaler -] Amlodipine Besylate 10 mg PO DAILY 04/29/16 Ascorbic Acid [C-500] 500 mg PO BID 04/29/16 Aspirin [ASA -] 81 mg PO DAILY 04/29/16 Atorvastatin Ca [Lipitor] 20 mg PO HS 04/29/16 Calcium Carbonate/Vitamin D3 1 each PO DAILY 04/29/16 [Calcium 600 + Vit D Tablet] Cyclobenzaprine HCl [Amrix] 10 mg PO TID 04/29/16 Gabapentin [Neurontin] 300 mg PO HS 04/29/16 Lactulose (Oral Use) [Cephulac -] 20 gm PO TID 04/29/16 Mesalamine [Delzicol] 400 mg PO QID 04/29/16 Metoprolol Succinate [Toprol Xl] 50 mg PO DAILY 04/29/16 Mometasone/Formoterol [Dulera 200 2 inh IH BID 04/29/16 Mcg/5 Mcg Inhaler] Omeprazole 20 mg PO DAILY 04/29/16 Oxycodone HCl/Acetaminophen 1 each PO QID 04/29/16 [Percocet 10-325 mg Tablet] Quetiapine Fumarate [Quetiapine 800 mg PO HS 04/29/16 Fumarate ER] Zolpidem Tartrate [Ambien] 10 mg PO HS 04/29/16 Acetaminophen [Tylenol .Regular 650 mg PO Q6H PRN #0 tablet 05/01/16 Strength -] Oxycodone HCl/Acetaminophen 1 - 2 tab PO Q6H #20 tablet MDD 4 07/13/16 [Percocet 5-325 mg Tablet] levoFLOXacin [Levaquin -] 500 mg PO DAILY #7 tablet 07/13/16 metroNIDAZOLE [Flagyl -] 500 mg PO BID #14 tablet 07/13/16 Allergies Allergy/AdvReac Type Severity Reaction Status Date / Time haloperidol [From Haldol] Allergy Verified 02/10/18 17:21 haloperidol lactate Allergy Verified 02/10/18 17:21 [From Haldol] REVIEW OF SYSTEMS: CONSTITUTIONAL: Absent: fever, chills CARDIOVASCULAR: Absent: chest pain, syncope GI: + anorexia, constipation PHYSICAL EXAM: GENERAL: Awake, alert, ill appearing. Laying on stretcher in ED. HEAD: Normal with no signs of trauma. LUNGS: Clear to auscultation bilat anteriorly. No wheezes, and no crackles. No accessory muscle use. HEART: Slightly tachy (90s) regular rhythm. No murmurs ABDOMEN: Obese, diffusely tender to palpation, not distended, hypoactive bowel sounds, no guarding, no rebound. Upper extremities: multiple large scars b/l ue's (per pt from h/o cutting) Vital Signs Temperature 99.8 F H 02/11/18 11:18 Pulse Rate 92 H 02/11/18 11:18 Respiratory Rate 18 02/11/18 11:18 Blood Pressure 119/60 02/11/18 11:18 O2 Sat by Pulse Oximetry (%) 92 L 02/11/18 11:18 Lab Results WBC 21.0 K/mm3 (4.0-10.0) H 02/11/18 05:10 RBC 3.50 M/mm3 (3.60-5.2) L 02/11/18 05:10 Hgb 10.0 GM/dL (10.7-15.3) L 02/11/18 05:10 Hct 32.2 % (32.4-45.2) L 02/11/18 05:10 MCV 92.1 fl (80-96) 02/11/18 05:10 MCHC 31.0 g/dl (32.0-36.0) L 02/11/18 05:10 RDW 14.7 % (11.6-15.6) 02/11/18 05:10 Plt Count 129 K/MM3 (134-434) L D 02/11/18 05:10 Sodium 138 mmol/L (136-145) 02/11/18 05:10 Potassium 4.1 mmol/L (3.5-5.1) 02/11/18 05:10 Chloride 104 mmol/L (98-107) 02/11/18 05:10 Carbon Dioxide 26 mmol/L (21-32) 02/11/18 05:10 Anion Gap 8 MMOL/L (8-16) 02/11/18 05:10 BUN 14 mg/dL (7-18) 02/11/18 05:10 Creatinine 0.8 mg/dL (0.55-1.3) 02/11/18 05:10 Random Glucose 99 mg/dL (74-106) 02/11/18 05:10 Calcium 8.1 mg/dL (8.5-10.1) L 02/11/18 05:10 CT A/P: (02/10): tiny gallstones without ct evidence of acute cholecystitis U/S: cholelithiasis with + Chakraborty's sign, mildly dilated CBD A/P: 62 y/o F w/ PMHx HTN, HLD, GERD, NIDDM, COPD, Schizophrenia, morbidly obese , Hep C (treated), presenting to the ED c/oo LLQ pain, and grogginess since . CT abdomen pelvis noted with pancreatitis, gallstones. Surgery consulted for further evaluation. ER course was notable for Lipase 1120, WBC 24.9. Low grade fever (99.8), tachy to 90s, hypotensive on presentation bp now systolic in 130s. Going for EGD now -NPO, IVF -Continue ABX per ID -Agree with MRCP, will f/u -Amylase/lipase ordered for AM -Will follow closely d/w attending Dr Cunningham
[2018-02-11 13:06] LABS: URINE APPEARANCE CLEAR; URINE BILIRUBIN NEGATIVE (<2.0 mg/dL); URINE COLOR LTYELLOW; URINE GLUCOSE (UA) NEGATIVE (NEGATIVE); URINE KETONE NEGATIVE (NEGATIVE); URINE LEUK ESTERASE NEGATIVE (NEGATIVE); URINE NITRITE NEGATIVE (NEGATIVE); URINE PROTEIN NEGATIVE (NEGATIVE); URINE UROBILINOGEN NEGATIVE mg/dL (0.2-1.0)
[2018-02-11 13:56] LABS: HEMATOCRIT 34.2 % (32.4-45.2); MCH 30.4 pg (25.7-33.7); MCHC 32.2 g/dl (32.0-36.0); MEAN CELL VOLUME 94.4 fl (80-96); MEAN PLT VOLUME 7.8 fl (7.5-11.1); PLATELET COUNT 130 K/MM3 (134-434); RBC 3.62 M/mm3 (3.60-5.2); RDW 15.8 % (11.6-15.6); WHITE BLOOD COUNT 17.7 K/mm3 (4.0-10.0)
[2018-02-11 14:28] LABS: INR 1.25 (0.83-1.09); PROTHROMBIN TIME (PATIENT) 14.8 SEC (9.7-13.0)
--- NOTE | 2018-02-11 16:30 | PN ---
Progress Note (short form) - Note Progress Note: Brief GI follow up note EGD performed today revealing esophagitis with possible small ulceration (no stigmata or evidence of bleeding), and a hiatal hernia (see report for full details). Recommend PPI bid and discontinue octreotide. Recommend repeat EGD in 8-12 weeks to assess healing of esophagitis on PPI therapy. MRCP to be performed this evening. While suspect passed stone, will await results and consider ERCP pending findings. Discussed with medicine resident. Advised to please contact us if questions/concerns in the interim.
[2018-02-11] MEDS ORDERED: LORazepam 2 MG/ML SDV VIAL IVPUSH ONE (18:00)
[2018-02-11] MEDS: PIPERACILLIN/TAZOB 3.375 GM 3.375 GM in DEXTROSE 5%-WATER - 50 ML IVPB SCH (18:08)
[2018-02-11] MEDS ORDERED: LORazepam 2 MG/ML SDV VIAL ONE (18:09)
[2018-02-11] MEDS: PANTOPRAZOLE SODIUM 40 MG VIAL IVPUSH SCH (21:54)
[2018-02-12] MEDS: FLUTICASONE/SALMETEROL 100 MCG/50 MCG DISKUS IH SCH ×3 (00:36→21:08)
[2018-02-12] MEDS: LACTATED RINGERS SOLUTION 1,000 ML/1,000 ML INFUS.BAG IV SCH (00:37)
[2018-02-12] MEDS ORDERED: PIPERACILLIN/TAZOBACTAM 3.375 GM VIAL IVPB ONE ×3 (01:23→16:52)
[2018-02-12] MEDS ORDERED: DEXTROSE 5%-WATER - 50 ML IVPB ONE ×3 (01:23→16:53)
[2018-02-12] MEDS: PIPERACILLIN/TAZOB 3.375 GM 3.375 GM in DEXTROSE 5%-WATER - 50 ML IVPB SCH ×3 (02:11→17:22)
[2018-02-12 07:42] LABS: BASO % 0.3 % (0-2.0); EOS % 0.4 % (0-4.5); HEMATOCRIT 30.3 % (32.4-45.2); HEMOGLOBIN 9.4 GM/dL (10.7-15.3); MCH 28.2 pg (25.7-33.7); MCHC 31.1 g/dl (32.0-36.0); MEAN CELL VOLUME 90.7 fl (80-96); MEAN PLT VOLUME 7.1 fl (7.5-11.1); MONO % 4.8 % (3.8-10.2); NEUT % 89.5 % (42.8-82.8); PLATELET COUNT 150 K/MM3 (134-434); RBC 3.34 M/mm3 (3.60-5.2); RDW 14.3 % (11.6-15.6); WHITE BLOOD COUNT 16.3 K/mm3 (4.0-10.0)
[2018-02-12] MEDS: morphine SULFATE 4 MG/ML VIAL IVPUSH PRN ×2 (07:48→11:47)
[2018-02-12 08:16] LABS: ALBUMIN 2.3 g/dl (3.4-5.0); ALK PHOS 78 U/L (45-117); AMYLASE 92 U/L (25-115); ANION GAP 11 MMOL/L (8-16); BILIRUBIN,TOTAL 0.6 mg/dL (0.2-1); BLOOD UREA NITROGEN 9 mg/dL (7-18); CALCIUM 8.2 mg/dL (8.5-10.1); CHLORIDE 99 mmol/L (98-107); CO2 27 mmol/L (21-32); CREATININE 0.8 mg/dL (0.55-1.3); GLUCOSE,RANDOM 98 mg/dL (74-106); LIPASE 263 U/L (73-393); MAGNESIUM 1.8 mg/dL (1.8-2.4); PHOSPHOROUS 3.5 mg/dL (2.5-4.9); POTASSIUM 3.9 mmol/L (3.5-5.1); SGOT/AST 12 U/L (15-37); SGPT/ALT 9 U/L (13-61); SODIUM 137 mmol/L (136-145); TOT PROT 5.2 g/dl (6.4-8.2)
--- NOTE | 2018-02-12 08:39 | PN ---
Progress Note (short form) - Note Progress Note: Pt seen and examined. Continues to have abdominal pain. Denies n/v/d. No issues overnight. Had EGD yesterday, MRCP/ERCP. Has not been oob. Denies cp/sob. Vital Signs Temp 99.2 F 02/12/18 05:00 Pulse 100 H 02/12/18 05:00 Resp 18 02/12/18 05:00 BP 131/69 02/12/18 05:00 Pulse Ox 98 02/11/18 23:00 Intake & Output 02/11/18 02/11/18 02/12/18 11:59 23:59 11:59 Intake Total 200 650 Balance 200 650 Weight 192 lb Intake: IV 200 600 LACTATED RINGERS SOLUTION 600 1,000 ml In 1,000 ml @ 100 mls/hr IV ASDIR AMANDA Rx#:[id number] IVPB 50 Other: Voiding Method Incontinent # Unmeasured Voids Void 1 Height 5 ft 6 in Body Mass Index (BMI) 30.9 Weight Measurement Method Stated by Patient CBC, BMP 02/12/18 07:10 02/12/18 07:10 EGD yesterday revealing esophagitis with possible small ulceration and hiatal hernia. MRCP/ERCP performed-results pending A/P: 62 y/o F w/ PMHx HTN, HLD, GERD, NIDDM, COPD, Schizophrenia, morbidly obese , Hep C (treated), presenting to the ED c/oo LLQ pain, and grogginess since . CT abdomen pelvis noted with pancreatitis, gallstones. Afebrile, remains tachy, bp stable WBC trending down (16.3 today from 21k yesterday). Lipsae 223 this AM from 1120 yesterday, Amylase 93. -NPO, IVF -Continue ABX per ID -F/u MRCP/ERCP -Will follow closely
[2018-02-12] MEDS ORDERED: PT OWN MED DRAWER 7, Y5N ONE (09:23)
[2018-02-12] MEDS: PANTOPRAZOLE SODIUM 40 MG VIAL IVPUSH SCH ×2 (09:36→21:09)
--- NOTE | 2018-02-12 12:20 | PN ---
Progress Note, Physician History of Present Illness: Awake, alert Supine in bed C/O abdominal pain. No c/o N/V Temps down afebrile WBC trending downward - Current Medication List Current Medications: Active Medications Albuterol Sulfate (Ventolin Hfa Inhaler -) 2 puff IH Q4H PRN PRN Reason: SHORTNESS OF BREATH Lactated Ringer's (Lactated Ringers Solution) 1,000 ml in 1,000 mls @ 100 mls/ hr IV ASDIR AMANDA Last Admin: 02/12/18 00:37 Dose: 100 mls/hr Piperacillin Sod/Tazobactam (Sod 3.375 gm/ Dextrose) 50 mls @ 100 mls/hr IVPB Q8H-IV AMANDA; Protocol Last Admin: 02/12/18 09:35 Dose: 100 mls/hr Lorazepam (Ativan Injection -) 2 mg IVPUSH ONCE ONE Stop: 02/12/18 18:01 Morphine Sulfate (Morphine Sulfate) 4 mg IVPUSH Q4H PRN PRN Reason: PAIN LEVEL 6-10 Last Admin: 02/12/18 11:47 Dose: 4 mg Ondansetron HCl (Zofran Injection) 4 mg IVPUSH Q6H PRN PRN Reason: NAUSEA Pantoprazole Sodium (Protonix Iv) 40 mg IVPUSH BID [facility] Last Admin: 02/12/18 09:36 Dose: 40 mg Fluticasone/Salmeterol (Advair 100mcg/50mcg -) 1 puff IH BID [facility] Last Admin: 02/12/18 09:36 Dose: 1 puff - Objective Vital Signs: Vital Signs Temperature 99.7 F H 02/12/18 09:00 Pulse Rate 96 H 02/12/18 09:00 Respiratory Rate 18 02/12/18 09:00 Blood Pressure 139/70 02/12/18 09:00 O2 Sat by Pulse Oximetry (%) 97 02/12/18 09:00 Constitutional: Yes: No Distress Eyes: Yes: Conjunctiva Clear Cardiovascular: Yes: Regular Rate and Rhythm, S1, S2 Respiratory: Yes: CTA Bilaterally Gastrointestinal: Yes: Normal Bowel Sounds, Soft, Tenderness, Other (+ epigastric tenderness) Edema: No Labs: CBC, BMP 02/12/18 07:10 02/12/18 07:10 INR, PTT INR 1.25 (0.83-1.09) H 02/11/18 14:08 Assessment/Plan Gallstone pancreatitis Fever/ leukocytosis R/O biliary sepsis Thrombocytopenia-improved Diabetes mellitus For MRCP Continue zosyn
[2018-02-12] MEDS ORDERED: LORazepam 2 MG/ML SDV VIAL IVPUSH ONE ×2 (13:15→18:00)
--- NOTE | 2018-02-12 14:23 | PN ---
Teaching Attending Note Name of Resident: Zaid Galindo ATTENDING PHYSICIAN STATEMENT I saw and evaluated the patient. I reviewed the resident's note and discussed the case with the resident. I agree with the resident's findings and plan as documented. SUBJECTIVE: no fever or chills. cont to have abd pain, no nausea. no vomiting OBJECTIVE: NAD, awake. MMM. CV: RRR, 2/6 SM at LUSB. no JVD Lungs: CTAB Abd: soft, ND, obese, TTP in all quadrants especially in epigastric area. hypoactive BS.no hepatomegaly. Ext: no edema . old track signs on her fore arms. ASSESSMENT AND PLAN: 62 y/o lady with h/o Hep C ( ? treated), Schizophrenia, COPD,colitis, and HLP who presented with abd pain, coffee ground emesis and was found tohave acute pancreatitis. 1- Coffee ground emesis: EGD with esophagitis and no source of bleed - cont IV PPI 2- Acute pancreatitis: likely due to gall stones . no alcohol abuse . - IVF - NPO for now - Sx consult appreciated . d/w Dr. Cunningham. sx is pending MRI results 3- Leukocytosis: need t r/o cholangitis . - cont zosyn - follow cx -declined MRCP x 2 last night. agreeeable today will give ativan for clustrophobia 4- volume depletion : cont IVF 5- h/o HTN: hold meds for now . will resume if hypertensive 6- R lung nodule, and L renal cyst. f/u as out pt dispo : HLOC hold DVT PX in case she needs ERCP
--- NOTE | 2018-02-12 15:05 | PN ---
Physical Exam: SUBJECTIVE: Patient is a 62 y/o female with history of HTN, HLD, GERD, NIDD, COPD, Schizophrenia, Hep C ( treated), pancreatitis likley 2/2 to gallstone. Patient refused to get MRCP overnight. WIll try again tonight. Patient to get 2 mg of ativan before. Patient reports she is still in a lot of pain. OBJECTIVE: Vital Signs Temperature 99.7 F H 02/12/18 09:00 Pulse Rate 96 H 02/12/18 09:00 Respiratory Rate 18 02/12/18 09:00 Blood Pressure 139/70 02/12/18 09:00 O2 Sat by Pulse Oximetry (%) 97 02/12/18 09:00 GENERAL: The patient is alert and oriented HEAD: Normal with no signs of trauma. LUNGS: Breath sounds equal, clear to auscultation bilaterally, no wheezes, no crackles, no accessory muscle use. HEART: Regular rate and rhythm, S1, S2 without murmur, rub or gallop. ABDOMEN: tender to palaption, worse at periumbilical EXTREMITIES: 2+ pulses, warm, well-perfused, no edema. PSYCH: Normal mood, normal affect. SKIN: Warm, dry, normal turgor, no rashes or lesions noted 2 CBC, BMP 02/12/18 07:10 02/12/18 07:10 Active Medications Albuterol Sulfate (Ventolin Hfa Inhaler -) 2 puff IH Q4H PRN PRN Reason: SHORTNESS OF BREATH Lactated Ringer's (Lactated Ringers Solution) 1,000 ml in 1,000 mls @ 100 mls/ hr IV ASDIR AMANDA Last Admin: 02/12/18 00:37 Dose: 100 mls/hr Piperacillin Sod/Tazobactam (Sod 3.375 gm/ Dextrose) 50 mls @ 100 mls/hr IVPB Q8H-IV AMANDA; Protocol Last Admin: 02/12/18 09:35 Dose: 100 mls/hr Morphine Sulfate (Morphine Sulfate) 4 mg IVPUSH Q4H PRN PRN Reason: PAIN LEVEL 6-10 Last Admin: 02/12/18 11:47 Dose: 4 mg Ondansetron HCl (Zofran Injection) 4 mg IVPUSH Q6H PRN PRN Reason: NAUSEA Pantoprazole Sodium (Protonix Iv) 40 mg IVPUSH BID [facility] Last Admin: 02/12/18 09:36 Dose: 40 mg Fluticasone/Salmeterol (Advair 100mcg/50mcg -) 1 puff IH BID [facility] Last Admin: 02/12/18 09:36 Dose: 1 puff ASSESSMENT/PLAN: Patient is a 62 y/o female with history of HTN, HLD, GERD, NIDD, COPD, Schizophrenia, Hep C ( treated), admitted for coffee ground emesis and abdominal pain. #abdominal pain 2/2 to pancreatitis vs cholelithias, acute gallstone pancreatitis - abd US: cholelthiasis, mildly dilated CBD - Abd/Pelvis CT: acute pancreatitis, tiny gallstones without evidence of cholecystitis, without evidence of colitis - WBC: down 16.3 - Zosyn 3.375 q8h day 2 - LR @ 100 - Zofran 4 mg q6h QTC 426 - morphine 4mg q4h for pain - lipase: 1120> 263 - UA: LE negative - ID; Dr. Hernandez continue Zosyn - GI; Dr. Fish - Surgery; Dr. Cunningham - continue NPO #coffee ground emesis: resolved - hgb stable : 11 > 10> 11> 9.4 - monitor on tele - patient NPO for now - protonix po 40 once daily - FOBT negative - EGD showed slight esophagitis, shallow ulcer unlikely to be varicies #constipation - stool noted on CT, continue colace and miralax #DM - BGM achs - SS #HTN - hold BP meds for now #HLD - hold po lipitor #COPD - continue albuterol - stable #Schizophrenia - po meds held for now #DVT ppx - SCD's for now FEN - LR @ 100 Dispo: f/u MRCP and patient to receive 2mg po ativan before procedure. Please call Dr. Fish once results received Visit type - Emergency Visit Emergency Visit: No - New Patient This patient is new to me today: No - Critical Care Critical Care patient: No
[2018-02-12] MEDS ORDERED: LORazepam 2 MG/ML SDV VIAL ONE (20:53)
[2018-02-13] MEDS: LACTATED RINGERS SOLUTION 1,000 ML/1,000 ML INFUS.BAG IV SCH (00:37)
[2018-02-13] MEDS: morphine SULFATE 4 MG/ML VIAL IVPUSH PRN ×2 (00:38→09:36)
[2018-02-13] MEDS ORDERED: PIPERACILLIN/TAZOBACTAM 3.375 GM VIAL IVPB ONE ×3 (02:09→15:33)
[2018-02-13] MEDS ORDERED: DEXTROSE 5%-WATER - 50 ML IVPB ONE ×3 (02:10→15:33)
[2018-02-13] MEDS: PIPERACILLIN/TAZOB 3.375 GM 3.375 GM in DEXTROSE 5%-WATER - 50 ML IVPB SCH ×3 (02:30→17:18)
[2018-02-13 07:23] LABS: ALBUMIN 2.3 g/dl (3.4-5.0); ALK PHOS 102 U/L (45-117); ANION GAP 12 MMOL/L (8-16); BILIRUBIN,TOTAL 0.6 mg/dL (0.2-1); BLOOD UREA NITROGEN 8 mg/dL (7-18); CALCIUM 8.1 mg/dL (8.5-10.1); CHLORIDE 99 mmol/L (98-107); CO2 28 mmol/L (21-32); CREATININE 0.8 mg/dL (0.55-1.3); GLUCOSE,RANDOM 63 mg/dL (74-106); MAGNESIUM 1.8 mg/dL (1.8-2.4); POTASSIUM 3.3 mmol/L (3.5-5.1); SGOT/AST 14 U/L (15-37); SGPT/ALT 9 U/L (13-61); SODIUM 139 mmol/L (136-145); TOT PROT 5.3 g/dl (6.4-8.2)
--- NOTE | 2018-02-13 07:45 | PN ---
Teaching Attending Note Name of Resident: Norma Gross ATTENDING PHYSICIAN STATEMENT I saw and evaluated the patient. I reviewed the resident's note and discussed the case with the resident. I agree with the resident's findings and plan as documented. SUBJECTIVE: Patient is c/o having an abdominal pain. No chest pain, or shortness of breath. OBJECTIVE: Vital Signs Temperature 97.8 F 02/13/18 05:00 Pulse Rate 97 H 02/13/18 05:00 Respiratory Rate 17 02/13/18 05:00 Blood Pressure 137/71 02/13/18 05:00 O2 Sat by Pulse Oximetry (%) 94 L 02/12/18 21:00 GENERAL: The patient is alert and oriented HEAD: Normal with no signs of trauma. LUNGS: Breath sounds equal, clear to auscultation bilaterally, no wheezes, no crackles, no accessory muscle use. HEART: Regular rate and rhythm, S1, S2 without murmur, rub or gallop. ABDOMEN:diffuse tenderness to palpation. pOsitive for BS. NR, EXTREMITIES: 2+ pulses, warm, well-perfused, no edema. PSYCH: Normal mood, normal affect. psotive for tremor SKIN: Warm, dry, normal turgor, no rashes or lesions noted CBCD WBC 16.3 K/mm3 (4.0-10.0) H 02/12/18 07:10 RBC 3.34 M/mm3 (3.60-5.2) L 02/12/18 07:10 Hgb 9.4 GM/dL (10.7-15.3) L 02/12/18 07:10 Hct 30.3 % (32.4-45.2) L 02/12/18 07:10 MCV 90.7 fl (80-96) 02/12/18 07:10 MCHC 31.1 g/dl (32.0-36.0) L 02/12/18 07:10 RDW 14.3 % (11.6-15.6) 02/12/18 07:10 Plt Count 150 K/MM3 (134-434) 02/12/18 07:10 MPV 7.1 fl (7.5-11.1) L 02/12/18 07:10 CMP Sodium 139 mmol/L (136-145) 02/13/18 05:30 Potassium 3.3 mmol/L (3.5-5.1) L 02/13/18 05:30 Chloride 99 mmol/L (98-107) 02/13/18 05:30 Carbon Dioxide 28 mmol/L (21-32) 02/13/18 05:30 Anion Gap 12 MMOL/L (8-16) 02/13/18 05:30 BUN 8 mg/dL (7-18) 02/13/18 05:30 Creatinine 0.8 mg/dL (0.55-1.3) 02/13/18 05:30 Creat Clearance w eGFR > 60 (>60) 02/13/18 05:30 Random Glucose 63 mg/dL (74-106) L 02/13/18 05:30 Calcium 8.1 mg/dL (8.5-10.1) L 02/13/18 05:30 Total Bilirubin 0.6 mg/dL (0.2-1) 02/13/18 05:30 AST 14 U/L (15-37) L 02/13/18 05:30 ALT 9 U/L (13-61) L 02/13/18 05:30 Alkaline Phosphatase 102 U/L (45-117) 02/13/18 05:30 Total Protein 5.3 g/dl (6.4-8.2) L 02/13/18 05:30 Albumin 2.3 g/dl (3.4-5.0) L 02/13/18 05:30 CARDIAC ENZYMES Creatine Kinase 42 IU/L (26-192) 02/10/18 19:00 Troponin I < 0.02 ng/ml (0.00-0.05) 02/10/18 19:00 Current Medications Generic Name Dose Route Start Last Admin Trade Name Freq PRN Reason Stop Dose Admin Albuterol Sulfate 2 puff 02/10/18 23:45 Ventolin Hfa Inhaler - IH Q4H PRN SHORTNESS OF BREATH Lactated Ringer's 1,000 ml in 1,000 mls @ 100 mls/hr 02/10/18 23:45 02/13/18 00:37 Lactated Ringers Solution IV 100 mls/hr ASDIR AMANDA Administration Piperacillin Sod/Tazobactam 50 mls @ 100 mls/hr 02/11/18 18:00 02/13/18 02:30 Sod 3.375 gm/ Dextrose IVPB 100 mls/hr Q8H-IV AMANDA Administration Protocol Morphine Sulfate 4 mg 02/10/18 23:31 02/13/18 00:38 Morphine Sulfate IVPUSH 4 mg Q4H PRN Administration PAIN LEVEL 6-10 Ondansetron HCl 4 mg 02/10/18 23:35 Zofran Injection IVPUSH Q6H PRN NAUSEA Pantoprazole Sodium 40 mg 02/11/18 22:00 02/12/18 21:09 Protonix Iv IVPUSH 40 mg BID AMANDA Administration Potassium Chloride 40 meq 02/13/18 07:33 K-Dur - PO 02/13/18 07:34 ONCE ONE Fluticasone/Salmeterol 1 puff 02/11/18 22:00 02/12/18 21:08 Advair 100mcg/50mcg - IH 1 puff BID AMNADA Administration Home Medications Medication Instructions Recorded Albuterol Sulfate Inhaler - 2 inh PO Q4H PRN 04/29/16 [Ventolin HFA Inhaler -] Amlodipine Besylate 10 mg PO DAILY 04/29/16 Ascorbic Acid [C-500] 500 mg PO BID 04/29/16 Aspirin [ASA -] 81 mg PO DAILY 04/29/16 Atorvastatin Ca [Lipitor] 20 mg PO HS 04/29/16 Gabapentin [Neurontin] 300 mg PO HS 04/29/16 Metoprolol Succinate [Toprol Xl] 50 mg PO DAILY 04/29/16 Omeprazole 20 mg PO DAILY 04/29/16 Oxycodone HCl/Acetaminophen 1 each PO Q6H PRN MDD 4 tablets 04/29/16 [Percocet 10-325 mg Tablet] Quetiapine Fumarate [Quetiapine 800 mg PO HS 04/29/16 Fumarate ER] Zolpidem Tartrate [Ambien] 10 mg PO HS 04/29/16 Clonazepam 1 mg PO DAILY PRN 02/11/18 Diclofenac Sodium 50 mg PO BID PRN 02/11/18 FENTANYL 25mcg PATCH [DURAGESIC 1 patch TD Q72H PRN 02/11/18 25mcg PATCH -] Furosemide [Lasix -] 20 mg PO DAILY 02/11/18 Iron Ps Complex/B12/Folic Acid 150 mg PO DAILY 02/11/18 [Ferrex 150 Forte Capsule] Lactulose 2 tbs PO DAILY 02/11/18 Mesalamine [Apriso] 4 cap PO DAILY 02/11/18 Mirtazapine 15 mg PO HS 02/11/18 Mometasone/Formoterol [Dulera 200 2 puff IH BID PRN 02/11/18 Mcg/5 Mcg Inhaler] Olanzapine 20 mg PO DAILY 02/11/18 Varenicline Tartrate [Chantix -] 1 tablet PO BID 02/11/18 traZODone HCL [Trazodone HCl] 100 mg PO HS PRN 02/11/18 Microbiology 02/11/18 12:25 Blood - Peripheral Venous Blood Culture - Preliminary NO GROWTH OBTAINED AFTER 48 HOURS, INCUBATION TO CONTINUE FOR 3 DAYS. 02/11/18 12:48 Blood - Peripheral Venous Blood Culture - Preliminary NO GROWTH OBTAINED AFTER 48 HOURS, INCUBATION TO CONTINUE FOR 3 DAYS. 02/10/18 13:00 Urine - Urine Clean Catch Urine Culture - Final NO GROWTH OBTAINED I MRCP: MPRESSION: Distended gallbladder but with no MRI evidence of cholelithiasis or cholecystitis. Focal thickening of the gallbladder dome with small internal cystic spaces suggestive of adenomyomatosis. Dilated CHD and CBD up to 1.1 cm with questionable nonobstructive filling defect vs artifact in the proximal CHD proximal to the cystic duct insertion with no evidence of intrahepatic biliary ductal dilatation. Correlate with patient's symptoms, LFTs and bilirubin level. If indicated ERCP may be obtained for further evaluation. Mild peripancreatic edema suggestive of pancreatitis. No pancreatic ductal dilatation seen. Evaluation of the pancreas on the postcontrast images is not feasible due to significant motion. Few scattered nonspecific tiny pancreatic cysts. The differential diagnoses include pseudocysts, parenchymal cysts or early cystic neoplasm. Follow-up MRI with MRCP in one year is suggested. Bilateral simple renal cysts. Bilateral renal atrophy. Small sliding hiatal hernia. Small left-sided pleural effusion with overlying atelectasis and/or infiltrates. Right posterior dependent lung atelectasis. ASSESSMENT AND PLAN: Patient is a 62 yo lady with h/o Hep C (unknown whether is treated or not), Schizophrenia, COPD,colitis, and HLP who presented with abdominal pain, coffee ground emesis and was found to have acute pancreatitis. #Acute pancreatitis: likely due to gall stones . no alcohol abuse . IVF , patient is going for ERCP today by , continue NPO for now - Sx consult appreciated Dr. Cunningham. #s/p coffee ground emesis: EGD with esophagitis and no source of bleed so far, cont IV PPI #Acute Leukocytosis: need to r/o cholangitis . cont zosyn , follow cx DVT PX: SCDs
[2018-02-13] MEDS ORDERED: POTASSIUM CHLORIDE TABS 20 MEQ TABLET.ER (FP) PO ONE (08:15)
--- NOTE | 2018-02-13 09:06 | PN ---
Physical Exam: SUBJECTIVE: Patient is a 62 y/o female with history of HTN, HLD, GERD, NIDD, COPD, Schizophrenia, Hep C ( treated), pancreatitis likley 2/2 to gallstone. MRCP showed filling defect, ERCP preformed today. Patient still in significant pain. OBJECTIVE: Vital Signs Temperature 98.5 F 02/13/18 10:00 Pulse Rate 94 H 02/13/18 10:00 Respiratory Rate 17 02/13/18 10:00 Blood Pressure 144/75 02/13/18 10:00 O2 Sat by Pulse Oximetry (%) 94 L 02/13/18 10:00 GENERAL: The patient is alert and oriented HEAD: Normal with no signs of trauma. LUNGS: Breath sounds equal, clear to auscultation bilaterally, no wheezes, no crackles, no accessory muscle use. HEART: Regular rate and rhythm, S1, S2 without murmur, rub or gallop. ABDOMEN: tender to palaption, worse at periumbilical EXTREMITIES: 2+ pulses, warm, well-perfused, no edema. PSYCH: Normal mood, normal affect. SKIN: Warm, dry, normal turgor, no rashes or lesions noted CBC, BMP 02/13/18 05:30 Active Medications Albuterol Sulfate (Ventolin Hfa Inhaler -) 2 puff IH Q4H PRN PRN Reason: SHORTNESS OF BREATH Lactated Ringer's (Lactated Ringers Solution) 1,000 ml in 1,000 mls @ 100 mls/ hr IV ASDIR AMANDA Last Admin: 02/13/18 00:37 Dose: 100 mls/hr Piperacillin Sod/Tazobactam (Sod 3.375 gm/ Dextrose) 50 mls @ 100 mls/hr IVPB Q8H-IV AMANDA; Protocol Last Admin: 02/13/18 02:30 Dose: 100 mls/hr Potassium Phosphate 20 mm/ (Sodium Chloride) 256.6667 mls @ 62.5 mls/hr IVPB ONCE ONE Stop: 02/13/18 14:06 Morphine Sulfate (Morphine Sulfate) 4 mg IVPUSH Q4H PRN PRN Reason: PAIN LEVEL 6-10 Last Admin: 02/13/18 00:38 Dose: 4 mg Ondansetron HCl (Zofran Injection) 4 mg IVPUSH Q6H PRN PRN Reason: NAUSEA Pantoprazole Sodium (Protonix Iv) 40 mg IVPUSH BID [facility] Last Admin: 02/12/18 21:09 Dose: 40 mg Fluticasone/Salmeterol (Advair 100mcg/50mcg -) 1 puff IH BID [facility] Last Admin: 02/12/18 21:08 Dose: 1 puff ASSESSMENT/PLAN: Patient is a 62 y/o female with history of HTN, HLD, GERD, NIDD, COPD, Schizophrenia, Hep C ( treated), admitted for gallstone pancreatitis. #gallstone pancreatitis - abd US: cholelthiasis, mildly dilated CBD - Abd/Pelvis CT: acute pancreatitis, tiny gallstones without evidence of cholecystitis, without evidence of colitis - WBC: down 11.8 - Zosyn 3.375 q8h day 3, f/u Dr. Hernandez - LR @ 100 - Zofran 4 mg q6h QTC 426 - morphine 4mg q4h for pain - ERCP 02/13 by GI; Dr. Fish : stone extracted but also disintegrated, sphincterotomy preformed. - Surgery; Dr. Cunningham f/u if wants cholecystectomy once pancreatitis resolves - continue NPO #anemia - hgb stable :9.3 - monitor on tele, monitor CBC for drops - patient NPO for now - protonix po 40 once daily - FOBT negative - EGD showed slight esophagitis, shallow ulcer unlikely to be varicies #constipation - stool noted on CT, continue colace and miralax #DM - BGM achs - SS #HTN - hold BP meds for now #HLD - hold po lipitor #COPD - continue albuterol - stable #Schizophrenia - po meds held for now #DVT ppx - SCD's for now FEN - LR @ 100 Dispo: monitor pancreatitis f/u with surgery for possible surgery once resolved Visit type - Emergency Visit Emergency Visit: No - New Patient This patient is new to me today: No - Critical Care Critical Care patient: No
[2018-02-13 09:32] LABS: HEMATOCRIT 29.4 % (32.4-45.2); HEMOGLOBIN 9.3 GM/dL (10.7-15.3); MCH 28.9 pg (25.7-33.7); MCHC 31.6 g/dl (32.0-36.0); MEAN CELL VOLUME 91.2 fl (80-96); MEAN PLT VOLUME 7.4 fl (7.5-11.1); PLATELET COUNT 152 K/MM3 (134-434); RBC 3.23 M/mm3 (3.60-5.2); RDW 14.4 % (11.6-15.6); WHITE BLOOD COUNT 11.8 K/mm3 (4.0-10.0)
[2018-02-13] MEDS: PANTOPRAZOLE SODIUM 40 MG VIAL IVPUSH SCH ×2 (09:38→22:12)
[2018-02-13] MEDS ORDERED: POTASSIUM PHOSPHATE 20 MM in SODIUM CHLORIDE 250 ML IVPB ONE (10:00)
[2018-02-13] MEDS: FLUTICASONE/SALMETEROL 100 MCG/50 MCG DISKUS IH SCH ×2 (10:36→22:12)
[2018-02-13] MEDS ORDERED: NEOSTIGMINE METHYLSULFATE 0.5 MG/ML - 10 ML MDV ONE (11:50)
[2018-02-13] MEDS ORDERED: GLYCOPYRROLATE 0.2 MG/1 ML VIAL ONE ×3 (11:50)
[2018-02-13] MEDS ORDERED: ROCURONIUM BROMIDE 50 MG/5 ML VIAL ONE (11:50)
--- NOTE | 2018-02-13 12:55 | PN ---
Progress Note (short form) - Note Progress Note: GI Procedure Note: After the MRCP findings were discussed with Dr Alcazar which raised the possibility of a stone bobbing around in the proximal CBD I discussed the need for ERCP in detail with Joana. I informed her of the potential complications associated with ERCP including hemorrhage, perforation and ERCP induced pancreatitis that can lead to multiorgan failure. After she granted informed consent ERCP was undertaken and discovered a small stone which disintegrated during extraction but allowed for balloon extraction of the residual stone fragments. A sphincterotomy was necessary. Please see the scanned ERCP report. Please consult surgery for cholecystectomy which can be undertaken if Joana does not develop pancreatitis.
[2018-02-13] MEDS ORDERED: LACTATED RINGERS SOLUTION 1,000 ML/1,000 ML INFUS.BAG IV SCH ×2 (13:00→18:00)
[2018-02-13] MEDS ORDERED: MELATONIN 5 MG TABLETS PO ONE (23:02)
[2018-02-14] MEDS ORDERED: LACTATED RINGERS SOLUTION 1,000 ML/1,000 ML INFUS.BAG IV SCH (02:00)
[2018-02-14] MEDS ORDERED: PIPERACILLIN/TAZOBACTAM 3.375 GM VIAL IVPB ONE ×3 (02:13→17:57)
[2018-02-14] MEDS ORDERED: DEXTROSE 5%-WATER - 50 ML IVPB ONE ×3 (02:13→17:57)
[2018-02-14] MEDS: PIPERACILLIN/TAZOB 3.375 GM 3.375 GM in DEXTROSE 5%-WATER - 50 ML IVPB SCH ×3 (03:00→18:03)
[2018-02-14] MEDS: morphine SULFATE 4 MG/ML VIAL IVPUSH PRN ×2 (05:44→18:02)
--- NOTE | 2018-02-14 08:01 | PN ---
Progress Note (short form) - Note Progress Note: Post op day#1.S/P ERCP with sphinctrectomy and baloon swaping of CBD under GA uneventful.Patient stable.No any anesthesia related problem.Patient DC from the anesthesia care.
--- NOTE | 2018-02-14 08:09 | SPA.PREOP ---
- PRE-OP NOTE Dx: GS Pancreatitis (resolved) Planned Procedure: Lap gin, possible open Surgeon: Reid Cunningham Last Vital Signs Temp Pulse Resp BP Pulse Ox 97.8 F 85 19 132/63 97 02/14/18 06:00 02/14/18 06:00 02/14/18 06:00 02/14/18 06:00 02/13/18 21:00 Lab Results WBC 11.8 K/mm3 (4.0-10.0) H 02/13/18 05:30 RBC 3.23 M/mm3 (3.60-5.2) L 02/13/18 05:30 Hgb 9.3 GM/dL (10.7-15.3) L 02/13/18 05:30 Hct 29.4 % (32.4-45.2) L 02/13/18 05:30 MCV 91.2 fl (80-96) 02/13/18 05:30 MCHC 31.6 g/dl (32.0-36.0) L 02/13/18 05:30 RDW 14.4 % (11.6-15.6) 02/13/18 05:30 Plt Count 152 K/MM3 (134-434) 02/13/18 05:30 Sodium 139 mmol/L (136-145) 02/13/18 05:30 Potassium 3.3 mmol/L (3.5-5.1) L 02/13/18 05:30 Chloride 99 mmol/L (98-107) 02/13/18 05:30 Carbon Dioxide 28 mmol/L (21-32) 02/13/18 05:30 Anion Gap 12 MMOL/L (8-16) 02/13/18 05:30 BUN 8 mg/dL (7-18) 02/13/18 05:30 Creatinine 0.8 mg/dL (0.55-1.3) 02/13/18 05:30 Random Glucose 63 mg/dL (74-106) L 02/13/18 05:30 Calcium 8.1 mg/dL (8.5-10.1) L 02/13/18 05:30 Blood Type O POSITIVE 02/11/18 13:27 Antibody Screen Negative 02/11/18 13:27 INR 1.25 (0.83-1.09) H 02/11/18 14:08 - ASSESSMENT/PLAN 1. Make NPO after midnight except po meds 2. GI/DVT PPX 3. Medical optimization / clearance 4. Consent to be obtained by surgeon after risks, benefits and alternatives explained to patient. Visit type - Case Type Case Type: ED Admission - New patient This patient is new to me today: Yes Date on this admission: 02/14/18
--- NOTE | 2018-02-14 08:30 | PN ---
Teaching Attending Note Name of Resident: Norma Gross ATTENDING PHYSICIAN STATEMENT I saw and evaluated the patient. I reviewed the resident's note and discussed the case with the resident. I agree with the resident's findings and plan as documented. SUBJECTIVE: Patient is feeling better but is still in pain. OBJECTIVE: Vital Signs Temperature 97.8 F 02/14/18 06:00 Pulse Rate 85 02/14/18 06:00 Respiratory Rate 19 02/14/18 06:00 Blood Pressure 132/63 02/14/18 06:00 O2 Sat by Pulse Oximetry (%) 97 02/13/18 21:00 GENERAL: The patient is alert and oriented HEAD: Normal with no signs of trauma. LUNGS: Breath sounds equal, clear to auscultation bilaterally, no wheezes, no crackles, no accessory muscle use. HEART: Regular rate and rhythm, S1, S2 without murmur, rub or gallop. ABDOMEN:decreased tenderness to palpation. positive for BS. NR, ND. EXTREMITIES: 2+ pulses, warm, well-perfused, no edema. PSYCH: Normal mood, normal affect. psotive for tremor SKIN: Warm, dry, normal turgor, no rashes or lesions noted CBCD WBC 11.8 K/mm3 (4.0-10.0) H 02/13/18 05:30 RBC 3.23 M/mm3 (3.60-5.2) L 02/13/18 05:30 Hgb 9.3 GM/dL (10.7-15.3) L 02/13/18 05:30 Hct 29.4 % (32.4-45.2) L 02/13/18 05:30 MCV 91.2 fl (80-96) 02/13/18 05:30 MCHC 31.6 g/dl (32.0-36.0) L 02/13/18 05:30 RDW 14.4 % (11.6-15.6) 02/13/18 05:30 Plt Count 152 K/MM3 (134-434) 02/13/18 05:30 MPV 7.4 fl (7.5-11.1) L 02/13/18 05:30 CMP Sodium 139 mmol/L (136-145) 02/13/18 05:30 Potassium 3.3 mmol/L (3.5-5.1) L 02/13/18 05:30 Chloride 99 mmol/L (98-107) 02/13/18 05:30 Carbon Dioxide 28 mmol/L (21-32) 02/13/18 05:30 Anion Gap 12 MMOL/L (8-16) 02/13/18 05:30 BUN 8 mg/dL (7-18) 02/13/18 05:30 Creatinine 0.8 mg/dL (0.55-1.3) 02/13/18 05:30 Creat Clearance w eGFR > 60 (>60) 02/13/18 05:30 Random Glucose 63 mg/dL (74-106) L 02/13/18 05:30 Calcium 8.1 mg/dL (8.5-10.1) L 02/13/18 05:30 Total Bilirubin 0.6 mg/dL (0.2-1) 02/13/18 05:30 AST 14 U/L (15-37) L 02/13/18 05:30 ALT 9 U/L (13-61) L 02/13/18 05:30 Alkaline Phosphatase 102 U/L (45-117) 02/13/18 05:30 Total Protein 5.3 g/dl (6.4-8.2) L 02/13/18 05:30 Albumin 2.3 g/dl (3.4-5.0) L 02/13/18 05:30 CARDIAC ENZYMES Creatine Kinase 42 IU/L (26-192) 02/10/18 19:00 Troponin I < 0.02 ng/ml (0.00-0.05) 02/10/18 19:00 Current Medications Generic Name Dose Route Start Last Admin Trade Name Freq PRN Reason Stop Dose Admin Albuterol Sulfate 2 puff 02/10/18 23:45 Ventolin Hfa Inhaler - IH Q4H PRN SHORTNESS OF BREATH Piperacillin Sod/Tazobactam 50 mls @ 100 mls/hr 02/11/18 18:00 02/14/18 03:00 Sod 3.375 gm/ Dextrose IVPB 100 mls/hr Q8H-IV AMANDA Administration Protocol Lactated Ringer's 1,000 ml in 1,000 mls @ 125 mls/hr 02/14/18 08:00 Lactated Ringers Solution IV ASDIR AMANDA Morphine Sulfate 4 mg 02/10/18 23:31 02/14/18 05:44 Morphine Sulfate IVPUSH 4 mg Q4H PRN Administration PAIN LEVEL 6-10 Ondansetron HCl 4 mg 02/10/18 23:35 Zofran Injection IVPUSH Q6H PRN NAUSEA Pantoprazole Sodium 40 mg 02/11/18 22:00 02/13/18 22:12 Protonix Iv IVPUSH 40 mg BID AMANDA Administration Fluticasone/Salmeterol 1 puff 02/11/18 22:00 02/13/18 22:12 Advair 100mcg/50mcg - IH 1 puff BID AMANDA Administration Home Medications Medication Instructions Recorded Albuterol Sulfate Inhaler - 2 inh PO Q4H PRN 04/29/16 [Ventolin HFA Inhaler -] Amlodipine Besylate 10 mg PO DAILY 04/29/16 Ascorbic Acid [C-500] 500 mg PO BID 04/29/16 Aspirin [ASA -] 81 mg PO DAILY 04/29/16 Atorvastatin Ca [Lipitor] 20 mg PO HS 04/29/16 Gabapentin [Neurontin] 300 mg PO HS 04/29/16 Metoprolol Succinate [Toprol Xl] 50 mg PO DAILY 04/29/16 Omeprazole 20 mg PO DAILY 04/29/16 Oxycodone HCl/Acetaminophen 1 each PO Q6H PRN MDD 4 tablets 04/29/16 [Percocet 10-325 mg Tablet] Quetiapine Fumarate [Quetiapine 800 mg PO HS 04/29/16 Fumarate ER] Zolpidem Tartrate [Ambien] 10 mg PO HS 04/29/16 Clonazepam 1 mg PO DAILY PRN 02/11/18 Diclofenac Sodium 50 mg PO BID PRN 02/11/18 FENTANYL 25mcg PATCH [DURAGESIC 1 patch TD Q72H PRN 02/11/18 25mcg PATCH -] Furosemide [Lasix -] 20 mg PO DAILY 02/11/18 Iron Ps Complex/B12/Folic Acid 150 mg PO DAILY 02/11/18 [Ferrex 150 Forte Capsule] Lactulose 2 tbs PO DAILY 02/11/18 Mesalamine [Apriso] 4 cap PO DAILY 02/11/18 Mirtazapine 15 mg PO HS 02/11/18 Mometasone/Formoterol [Dulera 200 2 puff IH BID PRN 02/11/18 Mcg/5 Mcg Inhaler] Olanzapine 20 mg PO DAILY 02/11/18 Varenicline Tartrate [Chantix -] 1 tablet PO BID 02/11/18 traZODone HCL [Trazodone HCl] 100 mg PO HS PRN 02/11/18 Microbiology 02/11/18 12:25 Blood - Peripheral Venous Blood Culture - Preliminary NO GROWTH OBTAINED AFTER 48 HOURS, INCUBATION TO CONTINUE FOR 3 DAYS. 02/11/18 12:48 Blood - Peripheral Venous Blood Culture - Preliminary NO GROWTH OBTAINED AFTER 48 HOURS, INCUBATION TO CONTINUE FOR 3 DAYS. 02/10/18 13:00 Urine - Urine Clean Catch Urine Culture - Final NO GROWTH OBTAINED MRCP: MPRESSION: Distended gallbladder but with no MRI evidence of cholelithiasis or cholecystitis. Focal thickening of the gallbladder dome with small internal cystic spaces suggestive of adenomyomatosis. Dilated CHD and CBD up to 1.1 cm with questionable nonobstructive filling defect vs artifact in the proximal CHD proximal to the cystic duct insertion with no evidence of intrahepatic biliary ductal dilatation. Correlate with patient's symptoms, LFTs and bilirubin level. If indicated ERCP may be obtained for further evaluation. Mild peripancreatic edema suggestive of pancreatitis. No pancreatic ductal dilatation seen. Evaluation of the pancreas on the postcontrast images is not feasible due to significant motion. Few scattered nonspecific tiny pancreatic cysts. The differential diagnoses include pseudocysts, parenchymal cysts or early cystic neoplasm. Follow-up MRI with MRCP in one year is suggested. Bilateral simple renal cysts. Bilateral renal atrophy. Small sliding hiatal hernia. Small left-sided pleural effusion with overlying atelectasis and/or infiltrates. Right posterior dependent lung atelectasis. ASSESSMENT AND PLAN: Patient is a 62 yo lady with h/o Hep C (unknown whether is treated or not), Schizophrenia, COPD,colitis, and HLP who presented with abdominal pain, coffee ground emesis and was found to have acute pancreatitis. #Acute gallstone pancreatitis: denies any alcohol use. continue IVF , s/p ERCP by s/p sphinterotomy, going to OR in am for lap.chol. by Dr. Cunningham. will follow #s/p coffee ground emesis: EGD with esophagitis and no source of bleed so far, cont IV PPI #Fever /Leukocytosis: improved on zosyn continue # R lung nodule, and L renal cyst. f/u as out pt DVT PX: SCDs NPO for now for possible lap chol. in am
[2018-02-14 08:57] LABS: HEMATOCRIT 28.4 % (32.4-45.2); HEMOGLOBIN 9.1 GM/dL (10.7-15.3); MCH 28.8 pg (25.7-33.7); MCHC 31.9 g/dl (32.0-36.0); MEAN CELL VOLUME 90.1 fl (80-96); PLATELET COUNT 184 K/MM3 (134-434); RBC 3.15 M/mm3 (3.60-5.2); RDW 14.4 % (11.6-15.6); WHITE BLOOD COUNT 9.2 K/mm3 (4.0-10.0)
[2018-02-14 09:17] LABS: INR 1.23 (0.83-1.09); PROTHROMBIN TIME (PATIENT) 14.6 SEC (9.7-13.0)
[2018-02-14 09:19] LABS: AMYLASE 58 U/L (25-115); LIPASE 149 U/L (73-393)
[2018-02-14 09:22] LABS: ALBUMIN 2.4 g/dl (3.4-5.0); ALK PHOS 129 U/L (45-117); ANION GAP 9 MMOL/L (8-16); BILIRUBIN,TOTAL 0.4 mg/dL (0.2-1); BLOOD UREA NITROGEN 7 mg/dL (7-18); CALCIUM 8.1 mg/dL (8.5-10.1); CHLORIDE 99 mmol/L (98-107); CO2 29 mmol/L (21-32); CREATININE 0.9 mg/dL (0.55-1.3); GLUCOSE,RANDOM 102 mg/dL (74-106); MAGNESIUM 1.8 mg/dL (1.8-2.4); PHOSPHOROUS 2.4 mg/dL (2.5-4.9); POTASSIUM 3.6 mmol/L (3.5-5.1); SGOT/AST 15 U/L (15-37); SGPT/ALT 12 U/L (13-61); SODIUM 138 mmol/L (136-145); TOT PROT 5.7 g/dl (6.4-8.2)
[2018-02-14 09:28] LABS: BILIRUBIN,TOTAL 0.3 mg/dL (0.2-1)
--- NOTE | 2018-02-14 09:51 | PN ---
Progress Note (short form) - Note Progress Note: Pt seen and examined. Continues to have abdominal pain. Denies n/v/d. No issues overnight. Has been oob to restroom. Denies cp/sob. Vital Signs Temp 97.8 F 02/14/18 06:00 Pulse 85 02/14/18 06:00 Resp 19 02/14/18 06:00 BP 132/63 02/14/18 06:00 Pulse Ox 97 02/13/18 21:00 Intake & Output 02/13/18 02/13/18 02/14/18 11:59 23:59 11:59 Intake Total 6537 667 0770 Balance 3780 934 9178 Intake: IV 1210 1660 LACTATED RINGERS SOLUTION 1000 1650 1,000 ml In 1,000 ml @ 100 mls/hr IV ASDIR AMANDA Rx#:[id number] saline lock 10 10 IVPB 50 50 Oral 0 340 240 Other: Voiding Method Diaper Incontinent # Unmeasured Voids Void 2 1 3 Bowel Movement No CBC, BMP 02/14/18 08:30 02/14/18 08:30 EGD 02/11 evealing esophagitis with possible small ulceration and hiatal hernia. MRCP/ERCP 02/13: Small stone found in CBD, removed +sphincterotomy A/P: 62 y/o F w/ PMHx HTN, HLD, GERD, NIDDM, COPD, Schizophrenia, morbidly obese , Hep C (treated), presenting to the ED c/oo LLQ pain, and grogginess since last week. CT abdomen pelvis noted with gallstone pancreatitis, pt now s/p MRCP/ERCP with removal of small stone and spincterotomy. Planned for lap gin tomorrow 02/15. VSS, labs stable, continues to have abdominal pain. -NPO, IVF after midnight -Continue ABX per ID -AM labs (cbc, chem, coags, t&s) -Consent per attending
[2018-02-14] MEDS: LACTATED RINGERS SOLUTION 1,000 ML/1,000 ML INFUS.BAG IV SCH (10:52)
[2018-02-14] MEDS: FLUTICASONE/SALMETEROL 100 MCG/50 MCG DISKUS IH SCH ×2 (10:52→21:59)
[2018-02-14] MEDS: PANTOPRAZOLE SODIUM 40 MG VIAL IVPUSH SCH ×2 (10:52→21:39)
--- NOTE | 2018-02-14 12:24 | PN ---
Physical Exam: SUBJECTIVE: Patient is a 62 y/o female with history of HTN, HLD, GERD, NIDD, COPD, Schizophrenia, Hep C ( treated), pancreatitis likely 2/2 to gallstone. Patient reports she is still in pain, but thinks it is better. Patient for cholecystectomy tomorrow. OBJECTIVE: Vital Signs Temperature 98.3 F 02/14/18 10:00 Pulse Rate 88 02/14/18 10:00 Respiratory Rate 19 02/14/18 10:00 Blood Pressure 130/81 02/14/18 10:00 O2 Sat by Pulse Oximetry (%) 97 02/14/18 10:00 GENERAL: The patient is alert and oriented HEAD: Normal with no signs of trauma. LUNGS: Breath sounds equal, clear to auscultation bilaterally, no wheezes, no crackles, no accessory muscle use. HEART: Regular rate and rhythm, S1, S2 without murmur, rub or gallop. ABDOMEN: tender to palaption, worse at periumbilical EXTREMITIES: 2+ pulses, warm, well-perfused, no edema. PSYCH: Normal mood, normal affect. SKIN: Warm, dry, normal turgor, no rashes or lesions noted CBC, BMP 02/14/18 08:30 02/14/18 08:30 Active Medications Albuterol Sulfate (Ventolin Hfa Inhaler -) 2 puff IH Q4H PRN PRN Reason: SHORTNESS OF BREATH Piperacillin Sod/Tazobactam (Sod 3.375 gm/ Dextrose) 50 mls @ 100 mls/hr IVPB Q8H-IV AMANDA; Protocol Last Admin: 02/14/18 10:53 Dose: 100 mls/hr Lactated Ringer's (Lactated Ringers Solution) 1,000 ml in 1,000 mls @ 125 mls/ hr IV ASDIR AMANDA Last Admin: 02/14/18 10:52 Dose: 125 mls/hr Morphine Sulfate (Morphine Sulfate) 4 mg IVPUSH Q4H PRN PRN Reason: PAIN LEVEL 6-10 Last Admin: 02/14/18 05:44 Dose: 4 mg Ondansetron HCl (Zofran Injection) 4 mg IVPUSH Q6H PRN PRN Reason: NAUSEA Pantoprazole Sodium (Protonix Iv) 40 mg IVPUSH BID [facility] Last Admin: 02/14/18 10:52 Dose: 40 mg Fluticasone/Salmeterol (Advair 100mcg/50mcg -) 1 puff IH BID AMANDA Last Admin: 02/14/18 10:52 Dose: 1 puff ASSESSMENT/PLAN: Patient is a 62 y/o female with history of HTN, HLD, GERD, NIDD, COPD, Schizophrenia, Hep C ( treated), admitted for gallstone pancreatitis. Patient to have cholecystectomy tomorrow. #gallstone pancreatitis - abd US: cholelthiasis, mildly dilated CBD - Abd/Pelvis CT: acute pancreatitis, tiny gallstones without evidence of cholecystitis, without evidence of colitis - WBC: down 11.8 - Zosyn 3.375 q8h day 4, f/u Dr. Hernandez - LR @ 100 - Zofran 4 mg q6h QTC 426 - morphine 4mg q4h for pain - ERCP 02/13 by GI; Dr. Fish : stone extracted but also disintegrated, sphincterotomy preformed. - Surgery; Dr. Cunningham - continue NPO for surgery tomorrow #anemia - hgb stable :9.1 - monitor CBC for drops - patient NPO for now - protonix po 40 once daily - FOBT negative - EGD showed slight esophagitis, shallow ulcer unlikely to be varicies #constipation - stool noted on CT, continue colace and miralax #DM - BGM achs - SS #HTN - hold BP meds for now #HLD - hold po lipitor #COPD - continue albuterol - stable #Schizophrenia - po meds held for now #DVT ppx - SCD's for now FEN - LR @ 100 Dispo: Per surgery patient saying she does not want to go to surgery tomorrow, Dr. Cunningham will reevaluate in the morning Visit type - Emergency Visit Emergency Visit: No - New Patient This patient is new to me today: No - Critical Care Critical Care patient: No
--- NOTE | 2018-02-14 13:18 | PN ---
Progress Note, Physician History of Present Illness: s/p ERCP/ stone extraction C/O epigastric pain No c/o N/V No BM since before admission OOB in chair Temps down afebrile WBC WNL - Current Medication List Current Medications: Active Medications Albuterol Sulfate (Ventolin Hfa Inhaler -) 2 puff IH Q4H PRN PRN Reason: SHORTNESS OF BREATH Piperacillin Sod/Tazobactam (Sod 3.375 gm/ Dextrose) 50 mls @ 100 mls/hr IVPB Q8H-IV AMANDA; Protocol Last Admin: 02/14/18 10:53 Dose: 100 mls/hr Lactated Ringer's (Lactated Ringers Solution) 1,000 ml in 1,000 mls @ 125 mls/ hr IV ASDIR AMANDA Last Admin: 02/14/18 10:52 Dose: 125 mls/hr Morphine Sulfate (Morphine Sulfate) 4 mg IVPUSH Q4H PRN PRN Reason: PAIN LEVEL 6-10 Last Admin: 02/14/18 05:44 Dose: 4 mg Ondansetron HCl (Zofran Injection) 4 mg IVPUSH Q6H PRN PRN Reason: NAUSEA Pantoprazole Sodium (Protonix Iv) 40 mg IVPUSH BID AMANDA Last Admin: 02/14/18 10:52 Dose: 40 mg Fluticasone/Salmeterol (Advair 100mcg/50mcg -) 1 puff IH BID [facility] Last Admin: 02/14/18 10:52 Dose: 1 puff - Objective Vital Signs: Vital Signs Temperature 98.3 F 02/14/18 10:00 Pulse Rate 88 02/14/18 10:00 Respiratory Rate 19 02/14/18 10:00 Blood Pressure 130/81 02/14/18 10:00 O2 Sat by Pulse Oximetry (%) 97 02/14/18 10:00 Constitutional: Yes: No Distress Eyes: Yes: Conjunctiva Clear Cardiovascular: Yes: Regular Rate and Rhythm Respiratory: Yes: CTA Bilaterally Gastrointestinal: Yes: Normal Bowel Sounds, Soft, Abdomen, Obese, Tenderness, Other (+ epigastric tenderness) Labs: CBC, BMP 02/14/18 08:30 02/14/18 08:30 INR, PTT INR 1.23 (0.83-1.09) H 02/14/18 08:30 Assessment/Plan Gallstone pancreatitis S/P ERCP/ stone extraction Fever/ leukocytosis improved Diabetes mellitus For cholecystectomy Continue zosyn
--- NOTE | 2018-02-14 13:22 | PN ---
Progress Note (short form) - Note Progress Note: Attending Surgeon patient seen in f/u; she has no c/o; she tells me she wants to go home VSS AF abdo-soft; flat and non tender labs noted IMP: resolving gallstone pancreatitis; cholelithiasis PLAN: D/w her lap gin possible open as definitive tx.; r/b/t/a's to surgery d/ w her; she states she wants to go home tomorrow and DOES NOT want surgery; I attempted to discuss this w/her brother who was not available; I would continue to pre-op the patient and will speak w/her michael inthe AM and/or her brother. Reid Cunningham MD FACS
[2018-02-14] MEDS ORDERED: DICLOFENAC SODIUM 25 MG TABLET.DR PO PRN (13:39)
[2018-02-14] MEDS ORDERED: PATIENT'S OWN MEDICATION (NON-FORMULARY) (Mometasone/Formoterol [Dulera 200 Mcg/5 Mcg Inha IH PRN (13:39)
[2018-02-14] MEDS ORDERED: PT OWN MED DRAWER 7, Y5N ONE ×2 (18:23→21:05)
[2018-02-14] MEDS: GABAPENTIN 300 MG CAPSULE (FP) PO SCH (21:39)
[2018-02-14] MEDS: ATORVASTATIN CA 20 MG TABLET (FP) PO SCH (21:39)
[2018-02-14] MEDS: MIRTAZAPINE 15 MG TABLET (FP) PO SCH (22:34)
[2018-02-15] MEDS ORDERED: QUEtiapine FUMARATE 200 MG TABLET PO ONE (00:38)
[2018-02-15] MEDS: PIPERACILLIN/TAZOB 3.375 GM 3.375 GM in DEXTROSE 5%-WATER - 50 ML IVPB SCH ×2 (04:10→10:25)
--- NOTE | 2018-02-15 04:56 | HOSP ---
Subjective - Review of Symptoms Subjective: was paged by nurse as patient was refusing to be NPO for surgery in the AM. Per nurse, patient was seen drinking water out of the bathroom sink. On evaluation, patient was A&O x3, but displaying a disorganized thought process. Patient claims that she was given the incorrect medication and is refusing the remainder of her medication. Upon investigation, the patient was given gabapentin and lipitor, both of which are present on her home med list, which was verified with her pharmacy by the day team. This was discussed with the patient and the patient verbalized understanding of this, expressing her desire to leave AMA in the morning. Patient continued to refuse all medications. Patient's nurse was later called by Mehran JOHNSON, stating that the patient had called them to report that she was being held against her will. It is my clinical judgment that the patient does not have the capacity to make her own decisions at this time due to her disorganized thought pattern and the inconsistency of her claims, therefore I am unable to allow her to sign out AMA. Physical Examination Vital Signs: Vital Signs Temperature 99.1 F 02/15/18 01:48 Pulse Rate 88 02/15/18 01:48 Respiratory Rate 19 02/14/18 21:35 Blood Pressure 138/78 02/15/18 01:48 O2 Sat by Pulse Oximetry (%) 97 02/14/18 21:00 Labs: CBC, BMP 02/14/18 08:30 02/14/18 08:30 Visit type - Emergency Visit Emergency Visit: Yes ED Registration Date: 02/10/18 Care time: The patient presented to the Emergency Department on the above date and was hospitalized for further evaluation of their emergent condition. - New Patient This patient is new to me today: Yes Date on this admission: 02/15/18 - Critical Care Critical Care patient: No
[2018-02-15] MEDS ORDERED: ACETAMINOPHEN 325 MG TABLET (FP) PO PRN (08:47)
[2018-02-15] MEDS ORDERED: PIPERACILLIN/TAZOBACTAM 3.375 GM VIAL IVPB ONE (09:42)
[2018-02-15] MEDS ORDERED: DEXTROSE 5%-WATER - 50 ML IVPB ONE (09:42)
--- NOTE | 2018-02-15 10:08 | PN ---
Progress Note (short form) - Note Progress Note: Attending Surgeon No c/o ??; last nights events noted VSS AF abdo-soft; flat and non tender IMP: resolving gallstone pancreatitis; cholelithisais; choledocholithiasis; s/p ERCP/sphincterotomy PLAN: In my opinion the patient at this time is unable to give informed consent for surgery and understand the r/b/t/ and possible alternatives and complications and at this time as yesterday refuses surgery; advise Psychiatric evaluation and prn surgical f/u. Reid Cunningham MD FACS
[2018-02-15] MEDS: LACTATED RINGERS SOLUTION 1,000 ML/1,000 ML INFUS.BAG IV SCH (10:14)
[2018-02-15] MEDS: PANTOPRAZOLE SODIUM 40 MG VIAL IVPUSH SCH ×2 (10:14→22:22)
[2018-02-15] MEDS: FUROSEMIDE 20 MG TABLET (FP) PO SCH (10:27)
[2018-02-15] MEDS: OLANZapine 10 MG TABLET PO SCH (10:27)
[2018-02-15] MEDS: FLUTICASONE/SALMETEROL 100 MCG/50 MCG DISKUS IH SCH ×2 (10:27→22:16)
[2018-02-15] MEDS: amLODIPine BESYLATE 10 MG TABLET (FP) PO SCH (10:30)
--- NOTE | 2018-02-15 11:27 | DS ---
Physical Exam: SUBJECTIVE: Patient is a 62 y/o female with history of HTN, HLD, GERD, NIDD, COPD, Schizophrenia, Hep C ( treated), pancreatitis likely 2/2 to gallstone. Patient reports she is still in pain, but thinks it is better. Patient for cholecystectomy tomorrow. OBJECTIVE: Vital Signs Temperature 98 F 02/15/18 10:00 Pulse Rate 102 H 02/15/18 10:00 Respiratory Rate 18 02/15/18 10:00 Blood Pressure 194/91 H 02/15/18 10:00 O2 Sat by Pulse Oximetry (%) 97 02/14/18 21:00 PHYSICAL EXAM GENERAL: The patient is alert and oriented HEAD: Normal with no signs of trauma. LUNGS: Breath sounds equal, clear to auscultation bilaterally, no wheezes, no crackles, no accessory muscle use. HEART: Regular rate and rhythm, S1, S2 without murmur, rub or gallop. ABDOMEN: tender to palaption, worse at periumbilical EXTREMITIES: 2+ pulses, warm, well-perfused, no edema. PSYCH: Normal mood, normal affect. SKIN: Warm, dry, normal turgor, no rashes or lesions noted LABS Laboratory Results - last 24 hr 02/14/18 02/15/18 16:06 00:45 POC Glucometer 117 140 HOSPITAL COURSE: Date of Admission:02/10/18 Patient was admitted for gallstone pancreatitis. Patient MRCP showed the gallstone and GI preformed an ERCP to remove the stone. A sphincterotomy was preformed, the stone dissolved upon retrieval. Surgeon Dr. Cunningham wanted to preform a cholecystectomy but patient refused. Patients pain resolved and was able to tolerate food. Patients vitals stable. Patient to continue home medications and f/u with GI as an outpatient. abd US: cholelthiasis, mildly dilated CBD Abd/Pelvis CT: acute pancreatitis, tiny gallstones without evidence of cholecystitis, without evidence of colitis FOBT: negative blood culture: no growth Urine culture: no growth Date of Discharge: 02/15/18 Minutes to complete discharge: 40 Discharge Summary Reason For Visit: PANCREATITIS, HEPATITIS C VIRUS INFECTION Current Active Problems Cholelithiasis (Chronic) Schizophrenia (Chronic) Condition: Improved - Instructions Diet, Activity, Other Instructions: You were admitted to the hospital for pancreatitis. Pancreatitis is an inflammation of your pancreas. Your pancreas was inflamed due to a stone from your gallbladder. You had a procedure done that removed the stone and your pancreatitis resolved. If you develop abdominal pain , your gall bladder needs to come out, please follow up with the surgeon Dr. Cunningham. You should follow up with [employer], Dr. Fish, to monitor your pancreas in one week. Please continue your home medications as prescribed. Please follow up with your primary care physician within one week. Return to the Emergency department if you have any nausea, vomiting, abdominal pain, chest pain, shortness of breath, or fevers. Referrals: Reid Cunningham MD [Staff Physician] - Naomy Fish MD [Staff Physician] - 1 Week Disposition: HOME - Home Medications Comprehensive Discharge Medication List: Ambulatory Orders Albuterol Sulfate Inhaler - [Ventolin HFA Inhaler -] 2 inh PO Q4H PRN 04/29/16 Amlodipine Besylate 10 mg PO DAILY 04/29/16 Aspirin [ASA -] 81 mg PO DAILY 04/29/16 Atorvastatin Ca [Lipitor] 20 mg PO HS 04/29/16 Gabapentin [Neurontin] 300 mg PO HS 04/29/16 Metoprolol Succinate [Toprol Xl] 50 mg PO DAILY 04/29/16 Omeprazole 20 mg PO DAILY 04/29/16 Oxycodone HCl/Acetaminophen [Percocet 10-325 mg Tablet] 1 each PO Q6H PRN MDD 4 tablets 04/29/16 Quetiapine Fumarate [Quetiapine Fumarate ER] 800 mg PO HS 04/29/16 Zolpidem Tartrate [Ambien] 10 mg PO HS 04/29/16 Clonazepam 1 mg PO DAILY PRN 02/11/18 Diclofenac Sodium 50 mg PO BID PRN 02/11/18 FENTANYL 25mcg PATCH [DURAGESIC 25mcg PATCH -] 1 patch TD Q72H PRN 02/11/18 Furosemide [Lasix -] 20 mg PO DAILY 02/11/18 Iron Ps Complex/B12/Folic Acid [Ferrex 150 Forte Capsule] 150 mg PO DAILY Lactulose 2 tbs PO DAILY 02/11/18 Mesalamine [Apriso] 4 cap PO DAILY 02/11/18 Mirtazapine 15 mg PO HS 02/11/18 Mometasone/Formoterol [Dulera 200 Mcg/5 Mcg Inhaler] 2 puff IH BID PRN 12/03/18 Olanzapine 20 mg PO DAILY 02/11/18 Varenicline Tartrate [Chantix -] 1 tablet PO BID 02/11/18 traZODone HCL [Trazodone HCl] 100 mg PO HS PRN 02/11/18 This patient is new to me today: No Emergency Visit: No Critical Care patient: No - Discharge Referral Referred to [facility] No
--- NOTE | 2018-02-15 16:13 | PN ---
Teaching Attending Note Name of Resident: Norma Gross ATTENDING PHYSICIAN STATEMENT I saw and evaluated the patient. I reviewed the resident's note and discussed the case with the resident. I agree with the resident's findings and plan as documented. SUBJECTIVE: Patient is refusing surgery OBJECTIVE: Vital Signs Temperature 99.7 F H 02/15/18 14:31 Pulse Rate 98 H 02/15/18 14:31 Respiratory Rate 20 02/15/18 14:31 Blood Pressure 151/81 02/15/18 14:31 O2 Sat by Pulse Oximetry (%) 97 02/14/18 21:00 GENERAL: The patient is alert and oriented HEAD: Normal with no signs of trauma. LUNGS: Breath sounds equal, clear to auscultation bilaterally, no wheezes, no crackles, no accessory muscle use. HEART: Regular rate and rhythm, S1, S2 without murmur, rub or gallop. ABDOMEN:NT, ND, positive for BS. EXTREMITIES: 2+ pulses, warm, well-perfused, no edema. PSYCH: Normal mood, normal affect. positive for tremor (old) SKIN: Warm, dry, normal turgor, no rashes or lesions noted CBCD WBC 9.2 K/mm3 (4.0-10.0) 02/14/18 08:30 RBC 3.15 M/mm3 (3.60-5.2) L 02/14/18 08:30 Hgb 9.1 GM/dL (10.7-15.3) L 02/14/18 08:30 Hct 28.4 % (32.4-45.2) L 02/14/18 08:30 MCV 90.1 fl (80-96) 02/14/18 08:30 MCHC 31.9 g/dl (32.0-36.0) L 02/14/18 08:30 RDW 14.4 % (11.6-15.6) 02/14/18 08:30 Plt Count 184 K/MM3 (134-434) D 02/14/18 08:30 MPV 7.0 fl (7.5-11.1) L 02/14/18 08:30 CMP Sodium 138 mmol/L (136-145) 02/14/18 08:30 Potassium 3.6 mmol/L (3.5-5.1) 02/14/18 08:30 Chloride 99 mmol/L (98-107) 02/14/18 08:30 Carbon Dioxide 29 mmol/L (21-32) 02/14/18 08:30 Anion Gap 9 MMOL/L (8-16) 02/14/18 08:30 BUN 7 mg/dL (7-18) 02/14/18 08:30 Creatinine 0.9 mg/dL (0.55-1.3) 02/14/18 08:30 Creat Clearance w eGFR > 60 (>60) 02/14/18 08:30 Random Glucose 102 mg/dL (74-106) 02/14/18 08:30 Calcium 8.1 mg/dL (8.5-10.1) L 02/14/18 08:30 Total Bilirubin 0.3 mg/dL (0.2-1) 02/14/18 08:30 AST 15 U/L (15-37) 02/14/18 08:30 ALT 12 U/L (13-61) L 02/14/18 08:30 Alkaline Phosphatase 129 U/L (45-117) H 02/14/18 08:30 Total Protein 5.7 g/dl (6.4-8.2) L 02/14/18 08:30 Albumin 2.4 g/dl (3.4-5.0) L 02/14/18 08:30 CARDIAC ENZYMES Creatine Kinase 42 IU/L (26-192) 02/10/18 19:00 Troponin I < 0.02 ng/ml (0.00-0.05) 02/10/18 19:00 Current Medications Generic Name Dose Route Start Last Admin Trade Name Alq PRN Reason Stop Dose Admin Acetaminophen 650 mg 02/15/18 08:47 Tylenol - PO Q6H PRN PAIN LEVEL 6-10 Albuterol Sulfate 2 puff 02/10/18 23:45 Ventolin Hfa Inhaler - IH Q4H PRN SHORTNESS OF BREATH Amlodipine Besylate 10 mg 02/15/18 10:00 02/15/18 10:30 Norvasc - PO 10 mg DAILY AMANDA Administration Atorvastatin Calcium 20 mg 02/14/18 22:00 02/14/18 21:39 Lipitor - PO 20 mg HS AMANDA Administration Diclofenac Sodium 50 mg 02/14/18 13:39 Voltaren - PO BID PRN PAIN Furosemide 20 mg 02/15/18 10:00 02/15/18 10:27 Lasix - PO 20 mg DAILY AAMNDA Administration Gabapentin 300 mg 02/14/18 22:00 02/14/18 21:39 Neurontin - PO 300 mg HS AMANDA Administration Lactated Ringer's 1,000 ml in 1,000 mls @ 125 mls/hr 02/14/18 08:00 02/15/18 10:14 Lactated Ringers Solution IV Not Given ASDIR AMANDA Metoprolol Succinate 50 mg 02/15/18 10:00 02/15/18 10:27 Toprol Xl - PO 50 mg DAILY AMANDA Administration Mirtazapine 15 mg 02/14/18 22:00 02/14/18 22:34 Remeron - PO Not Given HS AMANDA Olanzapine 20 mg 02/15/18 10:00 02/15/18 10:27 Zyprexa - PO 20 mg DAILY AMANDA Administration Ondansetron HCl 4 mg 02/10/18 23:35 Zofran Injection IVPUSH Q6H PRN NAUSEA Pantoprazole Sodium 40 mg 02/11/18 22:00 02/15/18 10:14 Protonix Iv IVPUSH Not Given BID AMANDA Quetiapine Fumarate 800 mg 02/14/18 22:00 02/14/18 21:41 Seroquel Xr - PO Not Given HS AMANDA Fluticasone/Salmeterol 1 puff 02/11/18 22:00 02/15/18 10:27 Advair 100mcg/50mcg - IH 1 puff BID AMANDA Administration Home Medications Medication Instructions Recorded Albuterol Sulfate Inhaler - 2 inh PO Q4H PRN 04/29/16 [Ventolin HFA Inhaler -] Amlodipine Besylate 10 mg PO DAILY 04/29/16 Aspirin [ASA -] 81 mg PO DAILY 04/29/16 Atorvastatin Ca [Lipitor] 20 mg PO HS 04/29/16 Gabapentin [Neurontin] 300 mg PO HS 04/29/16 Metoprolol Succinate [Toprol Xl] 50 mg PO DAILY 04/29/16 Omeprazole 20 mg PO DAILY 04/29/16 Oxycodone HCl/Acetaminophen 1 each PO Q6H PRN MDD 4 tablets 04/29/16 [Percocet 10-325 mg Tablet] Quetiapine Fumarate [Quetiapine 800 mg PO HS 02/18/17 Fumarate ER] Zolpidem Tartrate [Ambien] 10 mg PO HS 04/29/16 Clonazepam 1 mg PO DAILY PRN 02/11/18 Diclofenac Sodium 50 mg PO BID PRN 02/11/18 FENTANYL 25mcg PATCH [DURAGESIC 1 patch TD Q72H PRN 02/11/18 25mcg PATCH -] Furosemide [Lasix -] 20 mg PO DAILY 02/11/18 Iron Ps Complex/B12/Folic Acid 150 mg PO DAILY 02/11/18 [Ferrex 150 Forte Capsule] Lactulose 2 tbs PO DAILY 02/11/18 Mesalamine [Apriso] 4 cap PO DAILY 02/11/18 Mirtazapine 15 mg PO HS 02/11/18 Mometasone/Formoterol [Dulera 200 2 puff IH BID PRN 02/11/18 Mcg/5 Mcg Inhaler] Olanzapine 20 mg PO DAILY 02/11/18 Varenicline Tartrate [Chantix -] 1 tablet PO BID 02/11/18 traZODone HCL [Trazodone HCl] 100 mg PO HS PRN 02/11/18 Microbiology 02/11/18 12:25 Blood - Peripheral Venous Blood Culture - Preliminary NO GROWTH OBTAINED AFTER 48 HOURS, INCUBATION TO CONTINUE FOR 3 DAYS. 02/11/18 12:48 Blood - Peripheral Venous Blood Culture - Preliminary NO GROWTH OBTAINED AFTER 48 HOURS, INCUBATION TO CONTINUE FOR 3 DAYS. 02/10/18 13:00 Urine - Urine Clean Catch Urine Culture - Final NO GROWTH OBTAINED MRCP: MPRESSION: Distended gallbladder but with no MRI evidence of cholelithiasis or cholecystitis. Focal thickening of the gallbladder dome with small internal cystic spaces suggestive of adenomyomatosis. Dilated CHD and CBD up to 1.1 cm with questionable nonobstructive filling defect vs artifact in the proximal CHD proximal to the cystic duct insertion with no evidence of intrahepatic biliary ductal dilatation. Correlate with patient's symptoms, LFTs and bilirubin level. If indicated ERCP may be obtained for further evaluation. Mild peripancreatic edema suggestive of pancreatitis. No pancreatic ductal dilatation seen. Evaluation of the pancreas on the postcontrast images is not feasible due to significant motion. Few scattered nonspecific tiny pancreatic cysts. The differential diagnoses include pseudocysts, parenchymal cysts or early cystic neoplasm. Follow-up MRI with MRCP in one year is suggested. Bilateral simple renal cysts. Bilateral renal atrophy. Small sliding hiatal hernia. Small left-sided pleural effusion with overlying atelectasis and/or infiltrates. Right posterior dependent lung atelectasis. ASSESSMENT AND PLAN: Patient is a 62 yo lady with h/o Hep C (unknown whether is treated or not), Schizophrenia, COPD,colitis, and HLP who presented with abdominal pain, coffee ground emesis and was found to have acute pancreatitis. #Acute gallstone pancreatitis: improved s/p ERCP by s/p sphingterotomy , no pain , patient is comfortable , will follow surgeon as an outpatient . refusing surgery , discussed with the surgeon, will discharge patient home. Will follow with Dr. Cunningham. #s/p coffee ground emesis: EGD with esophagitis and no source of bleed so far. #Fever /Leukocytosis: improved ,completed iv zosyn. # R lung nodule, and L renal cyst. f/u as out pt discharge patient home.
[2018-02-15] MEDS ORDERED: PT OWN MED DRAWER 7, Y5N ONE (20:30)
[2018-02-15] MEDS: GABAPENTIN 300 MG CAPSULE (FP) PO SCH (22:16)
[2018-02-15] MEDS: ATORVASTATIN CA 20 MG TABLET (FP) PO SCH (22:16)
[2018-02-15] MEDS: MIRTAZAPINE 15 MG TABLET (FP) PO SCH (22:17)
[2018-02-16] MEDS ORDERED: PT OWN MED DRAWER 7, Y5N ONE ×2 (09:13→20:40)
[2018-02-16] MEDS: LACTATED RINGERS SOLUTION 1,000 ML/1,000 ML INFUS.BAG IV SCH (09:14)
[2018-02-16] MEDS: PANTOPRAZOLE SODIUM 40 MG VIAL IVPUSH SCH ×2 (09:15→22:50)
[2018-02-16] MEDS: FUROSEMIDE 20 MG TABLET (FP) PO SCH (09:18)
[2018-02-16] MEDS: OLANZapine 10 MG TABLET PO SCH (09:18)
[2018-02-16] MEDS: amLODIPine BESYLATE 10 MG TABLET (FP) PO SCH (09:18)
[2018-02-16] MEDS: FLUTICASONE/SALMETEROL 100 MCG/50 MCG DISKUS IH SCH ×2 (09:19→22:50)
--- NOTE | 2018-02-16 17:27 | PN ---
Progress Note (short form) - Note Progress Note: Patientwas not discharged yesterday since the nursing visitation that she gets 4 hrs per day was not available for the patient , therefore was held the discharge Vital Signs Temperature 99.1 F 02/16/18 13:23 Pulse Rate 86 02/16/18 13:23 Respiratory Rate 18 02/16/18 13:23 Blood Pressure 147/72 02/16/18 13:23 O2 Sat by Pulse Oximetry (%) 97 02/16/18 09:00 GENERAL: The patient is alert and oriented HEAD: Normal with no signs of trauma. LUNGS: Breath sounds equal, clear to auscultation bilaterally, no wheezes, no crackles, no accessory muscle use. HEART: Regular rate and rhythm, S1, S2 without murmur, rub or gallop. ABDOMEN:NT, ND, positive for BS. EXTREMITIES: 2+ pulses, warm, well-perfused, no edema. PSYCH: Normal mood, normal affect. positive for tremor (old) SKIN: Warm, dry, normal turgor, no rashes or lesions noted CBCD WBC 9.2 K/mm3 (4.0-10.0) 02/14/18 08:30 RBC 3.15 M/mm3 (3.60-5.2) L 02/14/18 08:30 Hgb 9.1 GM/dL (10.7-15.3) L 02/14/18 08:30 Hct 28.4 % (32.4-45.2) L 02/14/18 08:30 MCV 90.1 fl (80-96) 02/14/18 08:30 MCHC 31.9 g/dl (32.0-36.0) L 02/14/18 08:30 RDW 14.4 % (11.6-15.6) 02/14/18 08:30 Plt Count 184 K/MM3 (134-434) D 02/14/18 08:30 MPV 7.0 fl (7.5-11.1) L 02/14/18 08:30 CMP Sodium 138 mmol/L (136-145) 02/14/18 08:30 Potassium 3.6 mmol/L (3.5-5.1) 02/14/18 08:30 Chloride 99 mmol/L (98-107) 02/14/18 08:30 Carbon Dioxide 29 mmol/L (21-32) 02/14/18 08:30 Anion Gap 9 MMOL/L (8-16) 02/14/18 08:30 BUN 7 mg/dL (7-18) 02/14/18 08:30 Creatinine 0.9 mg/dL (0.55-1.3) 02/14/18 08:30 Creat Clearance w eGFR > 60 (>60) 02/14/18 08:30 Random Glucose 102 mg/dL (74-106) 02/14/18 08:30 Calcium 8.1 mg/dL (8.5-10.1) L 02/14/18 08:30 Total Bilirubin 0.3 mg/dL (0.2-1) 02/14/18 08:30 AST 15 U/L (15-37) 02/14/18 08:30 ALT 12 U/L (13-61) L 02/14/18 08:30 Alkaline Phosphatase 129 U/L (45-117) H 02/14/18 08:30 Total Protein 5.7 g/dl (6.4-8.2) L 02/14/18 08:30 Albumin 2.4 g/dl (3.4-5.0) L 02/14/18 08:30 CARDIAC ENZYMES Creatine Kinase 42 IU/L (26-192) 02/10/18 19:00 Troponin I < 0.02 ng/ml (0.00-0.05) 02/10/18 19:00 Current Medications Generic Name Dose Route Start Last Admin Trade Name Freq PRN Reason Stop Dose Admin Acetaminophen 650 mg 02/15/18 08:47 Tylenol - PO Q6H PRN PAIN LEVEL 6-10 Albuterol Sulfate 2 puff 02/10/18 23:45 Ventolin Hfa Inhaler - IH Q4H PRN SHORTNESS OF BREATH Amlodipine Besylate 10 mg 02/15/18 10:00 02/16/18 09:18 Norvasc - PO 10 mg DAILY AMANDA Administration Atorvastatin Calcium 20 mg 02/14/18 22:00 02/15/18 22:16 Lipitor - PO 20 mg HS AMANDA Administration Diclofenac Sodium 50 mg 02/14/18 13:39 Voltaren - PO BID PRN PAIN Furosemide 20 mg 02/15/18 10:00 02/16/18 09:18 Lasix - PO 20 mg DAILY AMANDA Administration Gabapentin 300 mg 02/14/18 22:00 02/15/18 22:16 Neurontin - PO 300 mg HS AMANDA Administration Lactated Ringer's 1,000 ml in 1,000 mls @ 125 mls/hr 02/14/18 08:00 02/16/18 09:14 Lactated Ringers Solution IV Not Given ASDIR AMANDA Metoprolol Succinate 50 mg 02/15/18 10:00 02/16/18 09:18 Toprol Xl - PO 50 mg DAILY AMANDA Administration Mirtazapine 15 mg 02/14/18 22:00 02/15/18 22:17 Remeron - PO 15 mg HS AMANDA Administration Olanzapine 20 mg 02/15/18 10:00 02/16/18 09:18 Zyprexa - PO 20 mg DAILY AMANDA Administration Ondansetron HCl 4 mg 02/10/18 23:35 Zofran Injection IVPUSH Q6H PRN NAUSEA Pantoprazole Sodium 40 mg 02/11/18 22:00 02/16/18 09:15 Protonix Iv IVPUSH Not Given BID AMANDA Quetiapine Fumarate 800 mg 02/14/18 22:00 02/15/18 22:21 Seroquel Xr - PO Not Given HS AMANDA Fluticasone/Salmeterol 1 puff 02/11/18 22:00 02/16/18 09:19 Advair 100mcg/50mcg - IH 1 puff BID AMANDA Administration Home Medications Medication Instructions Recorded Albuterol Sulfate Inhaler - 2 inh PO Q4H PRN 04/29/16 [Ventolin HFA Inhaler -] Amlodipine Besylate 10 mg PO DAILY 04/29/16 Aspirin [ASA -] 81 mg PO DAILY 04/29/16 Atorvastatin Ca [Lipitor] 20 mg PO HS 04/29/16 Gabapentin [Neurontin] 300 mg PO HS 04/29/16 Metoprolol Succinate [Toprol Xl] 50 mg PO DAILY 04/29/16 Omeprazole 20 mg PO DAILY 04/29/16 Oxycodone HCl/Acetaminophen 1 each PO Q6H PRN MDD 4 tablets 04/29/16 [Percocet 10-325 mg Tablet] Quetiapine Fumarate [Quetiapine 800 mg PO HS 04/29/16 Fumarate ER] Zolpidem Tartrate [Ambien] 10 mg PO HS 04/29/16 Clonazepam 1 mg PO DAILY PRN 02/11/18 Diclofenac Sodium 50 mg PO BID PRN 02/11/18 FENTANYL 25mcg PATCH [DURAGESIC 1 patch TD Q72H PRN 02/11/18 25mcg PATCH -] Furosemide [Lasix -] 20 mg PO DAILY 02/11/18 Iron Ps Complex/B12/Folic Acid 150 mg PO DAILY 02/11/18 [Ferrex 150 Forte Capsule] Lactulose 2 tbs PO DAILY 02/11/18 Mesalamine [Apriso] 4 cap PO DAILY 02/11/18 Mirtazapine 15 mg PO HS 02/11/18 Mometasone/Formoterol [Dulera 200 2 puff IH BID PRN 02/11/18 Mcg/5 Mcg Inhaler] Olanzapine 20 mg PO DAILY 02/11/18 Varenicline Tartrate [Chantix -] 1 tablet PO BID 02/11/18 traZODone HCL [Trazodone HCl] 100 mg PO HS PRN 02/11/18 MRCP: MPRESSION: Distended gallbladder but with no MRI evidence of cholelithiasis or cholecystitis. Focal thickening of the gallbladder dome with small internal cystic spaces suggestive of adenomyomatosis. Dilated CHD and CBD up to 1.1 cm with questionable nonobstructive filling defect vs artifact in the proximal CHD proximal to the cystic duct insertion with no evidence of intrahepatic biliary ductal dilatation. Correlate with patient's symptoms, LFTs and bilirubin level. If indicated ERCP may be obtained for further evaluation. Mild peripancreatic edema suggestive of pancreatitis. No pancreatic ductal dilatation seen. Evaluation of the pancreas on the postcontrast images is not feasible due to significant motion. Few scattered nonspecific tiny pancreatic cysts. The differential diagnoses include pseudocysts, parenchymal cysts or early cystic neoplasm. Follow-up MRI with MRCP in one year is suggested. Bilateral simple renal cysts. Bilateral renal atrophy. Small sliding hiatal hernia. Small left-sided pleural effusion with overlying atelectasis and/or infiltrates. Right posterior dependent lung atelectasis. ASSESSMENT AND PLAN: Patient is a 62 yo lady with h/o Hep C (unknown whether is treated or not), Schizophrenia, COPD,colitis, and HLP who presented with abdominal pain, coffee ground emesis and was found to have acute pancreatitis. #Acute gallstone pancreatitis: improved s/p ERCP by s/p sphingterotomy , no pain , patient is comfortable , will follow surgeon as an outpatient . refusing surgery , discussed with the surgeon, will discharge patient home. Will follow with Dr. Cunningham. Patient wants to go home but her services are not available till Sunday am, will not be a safe discharge #s/p coffee ground emesis: EGD with esophagitis and no source of bleed so far. #Fever /Leukocytosis: improved ,completed iv zosyn. # R lung nodule, and L renal cyst. f/u as out pt discharge patient home when her home visitation is arranged . Visit type - Emergency Visit Emergency Visit: Yes ED Registration Date: 02/10/18 Care time: The patient presented to the Emergency Department on the above date and was hospitalized for further evaluation of their emergent condition. - New Patient This patient is new to me today: No - Critical Care Critical Care patient: No - Discharge Referral Referred to [facility] Med [facility] No
[2018-02-16] MEDS: MIRTAZAPINE 15 MG TABLET (FP) PO SCH (22:50)
[2018-02-16] MEDS: ATORVASTATIN CA 20 MG TABLET (FP) PO SCH (22:50)
[2018-02-16] MEDS: GABAPENTIN 300 MG CAPSULE (FP) PO SCH (22:50)
[2018-02-17] MEDS: LACTATED RINGERS SOLUTION 1,000 ML/1,000 ML INFUS.BAG IV SCH (08:00)
--- NOTE | 2018-02-17 08:27 | PN ---
Teaching Attending Note Name of Resident: Norma Gross ATTENDING PHYSICIAN STATEMENT I saw and evaluated the patient. I reviewed the resident's note and discussed the case with the resident. I agree with the resident's findings and plan as documented. SUBJECTIVE: Patient is comfortable with no acute distress. OBJECTIVE: Vital Signs Temperature 98.9 F 02/17/18 07:00 Pulse Rate 89 02/17/18 07:00 Respiratory Rate 16 02/17/18 07:00 Blood Pressure 145/78 02/17/18 07:00 O2 Sat by Pulse Oximetry (%) 97 02/16/18 21:00 GENERAL: The patient is alert and oriented HEAD: Normal with no signs of trauma. LUNGS: Breath sounds equal, clear to auscultation bilaterally, no wheezes, no crackles, no accessory muscle use. HEART: Regular rate and rhythm, S1, S2 without murmur, rub or gallop. ABDOMEN: NT, ND, positive for BS. EXTREMITIES: 2+ pulses, warm, well-perfused, no edema. PSYCH: Normal mood, normal affect. Positive for tremor (old) SKIN: Warm, dry, normal turgor, no rashes or lesions noted CBCD WBC 9.2 K/mm3 (4.0-10.0) 02/14/18 08:30 RBC 3.15 M/mm3 (3.60-5.2) L 02/14/18 08:30 Hgb 9.1 GM/dL (10.7-15.3) L 02/14/18 08:30 Hct 28.4 % (32.4-45.2) L 02/14/18 08:30 MCV 90.1 fl (80-96) 02/14/18 08:30 MCHC 31.9 g/dl (32.0-36.0) L 02/14/18 08:30 RDW 14.4 % (11.6-15.6) 02/14/18 08:30 Plt Count 184 K/MM3 (134-434) D 02/14/18 08:30 MPV 7.0 fl (7.5-11.1) L 02/14/18 08:30 CMP Sodium 138 mmol/L (136-145) 02/14/18 08:30 Potassium 3.6 mmol/L (3.5-5.1) 02/14/18 08:30 Chloride 99 mmol/L (98-107) 02/14/18 08:30 Carbon Dioxide 29 mmol/L (21-32) 02/14/18 08:30 Anion Gap 9 MMOL/L (8-16) 02/14/18 08:30 BUN 7 mg/dL (7-18) 02/14/18 08:30 Creatinine 0.9 mg/dL (0.55-1.3) 02/14/18 08:30 Creat Clearance w eGFR > 60 (>60) 02/14/18 08:30 Random Glucose 102 mg/dL (74-106) 02/14/18 08:30 Calcium 8.1 mg/dL (8.5-10.1) L 02/14/18 08:30 Total Bilirubin 0.3 mg/dL (0.2-1) 02/14/18 08:30 AST 15 U/L (15-37) 02/14/18 08:30 ALT 12 U/L (13-61) L 02/14/18 08:30 Alkaline Phosphatase 129 U/L (45-117) H 02/14/18 08:30 Total Protein 5.7 g/dl (6.4-8.2) L 02/14/18 08:30 Albumin 2.4 g/dl (3.4-5.0) L 02/14/18 08:30 CARDIAC ENZYMES Creatine Kinase 42 IU/L (26-192) 02/10/18 19:00 Troponin I < 0.02 ng/ml (0.00-0.05) 02/10/18 19:00 Current Medications Generic Name Dose Route Start Last Admin Trade Name Alq PRN Reason Stop Dose Admin Acetaminophen 650 mg 02/15/18 08:47 02/16/18 22:54 Tylenol - PO 650 mg Q6H PRN Administration PAIN LEVEL 6-10 Albuterol Sulfate 2 puff 02/10/18 23:45 Ventolin Hfa Inhaler - IH Q4H PRN SHORTNESS OF BREATH Amlodipine Besylate 10 mg 02/15/18 10:00 02/16/18 09:18 Norvasc - PO 10 mg DAILY AMANDA Administration Atorvastatin Calcium 20 mg 02/14/18 22:00 02/16/18 22:50 Lipitor - PO 20 mg HS AMANDA Administration Diclofenac Sodium 50 mg 02/14/18 13:39 Voltaren - PO BID PRN PAIN Furosemide 20 mg 02/15/18 10:00 02/16/18 09:18 Lasix - PO 20 mg DAILY AMANDA Administration Gabapentin 300 mg 02/14/18 22:00 02/16/18 22:50 Neurontin - PO 300 mg HS AMANDA Administration Lactated Ringer's 1,000 ml in 1,000 mls @ 125 mls/hr 02/14/18 08:00 02/16/18 09:14 Lactated Ringers Solution IV Not Given ASDIR AMANDA Metoprolol Succinate 50 mg 02/15/18 10:00 02/16/18 09:18 Toprol Xl - PO 50 mg DAILY AMANDA Administration Mirtazapine 15 mg 02/14/18 22:00 02/16/18 22:50 Remeron - PO 15 mg HS AMANDA Administration Olanzapine 20 mg 02/15/18 10:00 02/16/18 09:18 Zyprexa - PO 20 mg DAILY AMANDA Administration Ondansetron HCl 4 mg 02/10/18 23:35 Zofran Injection IVPUSH Q6H PRN NAUSEA Pantoprazole Sodium 40 mg 02/11/18 22:00 02/16/18 22:50 Protonix Iv IVPUSH Not Given BID AMANDA Quetiapine Fumarate 800 mg 02/14/18 22:00 02/16/18 22:49 Seroquel Xr - PO 800 mg HS AMANDA Administration Fluticasone/Salmeterol 1 puff 02/11/18 22:00 02/16/18 22:50 Advair 100mcg/50mcg - IH 1 puff BID AMANDA Administration Home Medications Medication Instructions Recorded Albuterol Sulfate Inhaler - 2 inh PO Q4H PRN 04/29/16 [Ventolin HFA Inhaler -] Amlodipine Besylate 10 mg PO DAILY 04/29/16 Aspirin [ASA -] 81 mg PO DAILY 04/29/16 Atorvastatin Ca [Lipitor] 20 mg PO HS 04/29/16 Gabapentin [Neurontin] 300 mg PO HS 04/29/16 Metoprolol Succinate [Toprol Xl] 50 mg PO DAILY 04/29/16 Omeprazole 20 mg PO DAILY 04/29/16 Oxycodone HCl/Acetaminophen 1 each PO Q6H PRN MDD 4 tablets 04/29/16 [Percocet 10-325 mg Tablet] Quetiapine Fumarate [Quetiapine 800 mg PO HS 04/29/16 Fumarate ER] Zolpidem Tartrate [Ambien] 10 mg PO HS 04/29/16 Clonazepam 1 mg PO DAILY PRN 02/11/18 Diclofenac Sodium 50 mg PO BID PRN 02/11/18 FENTANYL 25mcg PATCH [DURAGESIC 1 patch TD Q72H PRN 02/11/18 25mcg PATCH -] Furosemide [Lasix -] 20 mg PO DAILY 02/11/18 Iron Ps Complex/B12/Folic Acid 150 mg PO DAILY 02/11/18 [Ferrex 150 Forte Capsule] Lactulose 2 tbs PO DAILY 02/11/18 Mesalamine [Apriso] 4 cap PO DAILY 02/11/18 Mirtazapine 15 mg PO HS 02/11/18 Mometasone/Formoterol [Dulera 200 2 puff IH BID PRN 02/11/18 Mcg/5 Mcg Inhaler] Olanzapine 20 mg PO DAILY 02/11/18 Varenicline Tartrate [Chantix -] 1 tablet PO BID 02/11/18 traZODone HCL [Trazodone HCl] 100 mg PO HS PRN 02/11/18 MRCP: MPRESSION: Distended gallbladder but with no MRI evidence of cholelithiasis or cholecystitis. Focal thickening of the gallbladder dome with small internal cystic spaces suggestive of adenomyomatosis. Dilated CHD and CBD up to 1.1 cm with questionable nonobstructive filling defect vs artifact in the proximal CHD proximal to the cystic duct insertion with no evidence of intrahepatic biliary ductal dilatation. Correlate with patient's symptoms, LFTs and bilirubin level. If indicated ERCP may be obtained for further evaluation. Mild peripancreatic edema suggestive of pancreatitis. No pancreatic ductal dilatation seen. Evaluation of the pancreas on the postcontrast images is not feasible due to significant motion. Few scattered nonspecific tiny pancreatic cysts. The differential diagnoses include pseudocysts, parenchymal cysts or early cystic neoplasm. Follow-up MRI with MRCP in one year is suggested. Bilateral simple renal cysts. Bilateral renal atrophy. Small sliding hiatal hernia. Small left-sided pleural effusion with overlying atelectasis and/or infiltrates. Right posterior dependent lung atelectasis. ASSESSMENT AND PLAN: Patient is a 62 yo lady with h/o Hep C (unknown whether is treated or not), Schizophrenia, COPD, colitis, and HLP who presented with abdominal pain, coffee ground emesis and was found to have acute pancreatitis. #Acute gallstone pancreatitis: improved s/p ERCP by s/p sphingterotomy , no pain , patient is comfortable, will follow surgeon as an outpatient refusing surgery, discussed with the surgeon, will discharge patient home. Will follow with Dr. Cunningham, Patient wants to go home but her services are not available till Sunday am, will not be a safe discharge. #s/p coffee ground emesis: EGD with esophagitis and no source of bleed so far. #Fever/Leukocytosis: improved ,completed iv zosyn. # R lung nodule, and L renal cyst. f/u as out pt will discharge her in am home once VNS is arranged. in am
[2018-02-17] MEDS ORDERED: PT OWN MED DRAWER 7, Y5N ONE ×2 (09:52→21:10)
[2018-02-17] MEDS: PANTOPRAZOLE SODIUM 40 MG VIAL IVPUSH SCH (10:44)
[2018-02-17] MEDS: FUROSEMIDE 20 MG TABLET (FP) PO SCH (10:44)
[2018-02-17] MEDS: amLODIPine BESYLATE 10 MG TABLET (FP) PO SCH (10:44)
[2018-02-17] MEDS: OLANZapine 10 MG TABLET PO SCH (10:44)
[2018-02-17] MEDS: FLUTICASONE/SALMETEROL 100 MCG/50 MCG DISKUS IH SCH ×2 (10:45→22:44)
[2018-02-17] MEDS: PANTOPRAZOLE 40 MG TABLET (FP) PO SCH (11:30)
[2018-02-17] MEDS: MIRTAZAPINE 15 MG TABLET (FP) PO SCH (22:44)
[2018-02-17] MEDS: GABAPENTIN 300 MG CAPSULE (FP) PO SCH (22:44)
[2018-02-17] MEDS: ATORVASTATIN CA 20 MG TABLET (FP) PO SCH (22:44)
--- NOTE | 2018-02-18 09:00 | PN ---
Teaching Attending Note Name of Resident: Norma Gross ATTENDING PHYSICIAN STATEMENT I saw and evaluated the patient. I reviewed the resident's note and discussed the case with the resident. I agree with the resident's findings and plan as documented. SUBJECTIVE: Patient has no new complain. ready to go back home. OBJECTIVE: Vital Signs Period Temp Pulse Resp BP Sys/Diaz Pulse Ox Last 24 Hr 98 F-98.8 F 79-90 18-20 125-142/59-67 97-97 GENERAL: The patient is alert and oriented HEAD: Normal with no signs of trauma. LUNGS:CTA BL, no wheezes, no crackles, no accessory muscle use. HEART: Regular rate and rhythm, S1, S2 without murmur, rub or gallop. ABDOMEN: NT, ND, positive for BS. EXTREMITIES: 2+ pulses, warm, well-perfused, no edema. PSYCH: Normal mood, normal affect. Positive for tremor (old) SKIN: Warm, dry, normal turgor, no rashes or lesions noted CBCD WBC 9.2 K/mm3 (4.0-10.0) 02/14/18 08:30 RBC 3.15 M/mm3 (3.60-5.2) L 02/14/18 08:30 Hgb 9.1 GM/dL (10.7-15.3) L 02/14/18 08:30 Hct 28.4 % (32.4-45.2) L 02/14/18 08:30 MCV 90.1 fl (80-96) 02/14/18 08:30 MCHC 31.9 g/dl (32.0-36.0) L 02/14/18 08:30 RDW 14.4 % (11.6-15.6) 02/14/18 08:30 Plt Count 184 K/MM3 (134-434) D 02/14/18 08:30 MPV 7.0 fl (7.5-11.1) L 02/14/18 08:30 CMP Sodium 138 mmol/L (136-145) 02/14/18 08:30 Potassium 3.6 mmol/L (3.5-5.1) 02/14/18 08:30 Chloride 99 mmol/L (98-107) 02/14/18 08:30 Carbon Dioxide 29 mmol/L (21-32) 02/14/18 08:30 Anion Gap 9 MMOL/L (8-16) 02/14/18 08:30 BUN 7 mg/dL (7-18) 02/14/18 08:30 Creatinine 0.9 mg/dL (0.55-1.3) 02/14/18 08:30 Creat Clearance w eGFR > 60 (>60) 02/14/18 08:30 Random Glucose 102 mg/dL (74-106) 02/14/18 08:30 Calcium 8.1 mg/dL (8.5-10.1) L 02/14/18 08:30 Total Bilirubin 0.3 mg/dL (0.2-1) 02/14/18 08:30 AST 15 U/L (15-37) 02/14/18 08:30 ALT 12 U/L (13-61) L 02/14/18 08:30 Alkaline Phosphatase 129 U/L (45-117) H 02/14/18 08:30 Total Protein 5.7 g/dl (6.4-8.2) L 02/14/18 08:30 Albumin 2.4 g/dl (3.4-5.0) L 02/14/18 08:30 CARDIAC ENZYMES Creatine Kinase 42 IU/L (26-192) 02/10/18 19:00 Troponin I < 0.02 ng/ml (0.00-0.05) 02/10/18 19:00 Current Medications Generic Name Dose Route Start Last Admin Trade Name Freq PRN Reason Stop Dose Admin Acetaminophen 650 mg 02/15/18 08:47 02/16/18 22:54 Tylenol - PO 650 mg Q6H PRN Administration PAIN LEVEL 6-10 Albuterol Sulfate 2 puff 02/10/18 23:45 Ventolin Hfa Inhaler - IH Q4H PRN SHORTNESS OF BREATH Amlodipine Besylate 10 mg 02/15/18 10:00 02/17/18 10:44 Norvasc - PO 10 mg DAILY AMANDA Administration Atorvastatin Calcium 20 mg 02/14/18 22:00 02/17/18 22:44 Lipitor - PO 20 mg HS AMANDA Administration Diclofenac Sodium 50 mg 02/14/18 13:39 02/17/18 22:43 Voltaren - PO 50 mg BID PRN Administration PAIN Furosemide 20 mg 02/15/18 10:00 02/17/18 10:44 Lasix - PO 20 mg DAILY AMANDA Administration Gabapentin 300 mg 02/14/18 22:00 02/17/18 22:44 Neurontin - PO 300 mg HS AMANDA Administration Metoprolol Succinate 50 mg 02/15/18 10:00 02/17/18 10:44 Toprol Xl - PO 50 mg DAILY AMANDA Administration Mirtazapine 15 mg 02/14/18 22:00 02/17/18 22:44 Remeron - PO 15 mg HS AMANDA Administration Olanzapine 20 mg 02/15/18 10:00 02/17/18 10:44 Zyprexa - PO 20 mg DAILY AMANDA Administration Pantoprazole Sodium 40 mg 02/17/18 11:15 02/17/18 11:30 Protonix - PO 40 mg DAILY AMANDA Administration Quetiapine Fumarate 800 mg 02/14/18 22:00 02/18/18 00:25 Seroquel Xr - PO 400 mg HS AMANDA Administration Fluticasone/Salmeterol 1 puff 02/11/18 22:00 02/17/18 22:44 Advair 100mcg/50mcg - IH 1 puff BID AMANDA Administration Home Medications Medication Instructions Recorded Albuterol Sulfate Inhaler - 2 inh PO Q4H PRN 04/29/16 [Ventolin HFA Inhaler -] Amlodipine Besylate 10 mg PO DAILY 04/29/16 Aspirin [ASA -] 81 mg PO DAILY 04/29/16 Atorvastatin Ca [Lipitor] 20 mg PO HS 04/29/16 Gabapentin [Neurontin] 300 mg PO HS 04/29/16 Metoprolol Succinate [Toprol Xl] 50 mg PO DAILY 04/29/16 Omeprazole 20 mg PO DAILY 04/29/16 Oxycodone HCl/Acetaminophen 1 each PO Q6H PRN MDD 4 tablets 04/29/16 [Percocet 10-325 mg Tablet] Quetiapine Fumarate [Quetiapine 800 mg PO HS 04/29/16 Fumarate ER] Zolpidem Tartrate [Ambien] 10 mg PO HS 04/29/16 Clonazepam 1 mg PO DAILY PRN 02/11/18 Diclofenac Sodium 50 mg PO BID PRN 02/11/18 FENTANYL 25mcg PATCH [DURAGESIC 1 patch TD Q72H PRN 02/11/18 25mcg PATCH -] Furosemide [Lasix -] 20 mg PO DAILY 02/11/18 Iron Ps Complex/B12/Folic Acid 150 mg PO DAILY 02/11/18 [Ferrex 150 Forte Capsule] Lactulose 2 tbs PO DAILY 02/11/18 Mesalamine [Apriso] 4 cap PO DAILY 02/11/18 Mirtazapine 15 mg PO HS 02/11/18 Mometasone/Formoterol [Dulera 200 2 puff IH BID PRN 02/11/18 Mcg/5 Mcg Inhaler] Olanzapine 20 mg PO DAILY 02/11/18 Varenicline Tartrate [Chantix -] 1 tablet PO BID 02/11/18 traZODone HCL [Trazodone HCl] 100 mg PO HS PRN 02/11/18 MRCP: MPRESSION: Distended gallbladder but with no MRI evidence of cholelithiasis or cholecystitis. Focal thickening of the gallbladder dome with small internal cystic spaces suggestive of adenomyomatosis. Dilated CHD and CBD up to 1.1 cm with questionable nonobstructive filling defect vs artifact in the proximal CHD proximal to the cystic duct insertion with no evidence of intrahepatic biliary ductal dilatation. Correlate with patient's symptoms, LFTs and bilirubin level. If indicated ERCP may be obtained for further evaluation. Mild peripancreatic edema suggestive of pancreatitis. No pancreatic ductal dilatation seen. Evaluation of the pancreas on the postcontrast images is not feasible due to significant motion. Few scattered nonspecific tiny pancreatic cysts. The differential diagnoses include pseudocysts, parenchymal cysts or early cystic neoplasm. Follow-up MRI with MRCP in one year is suggested. Bilateral simple renal cysts. Bilateral renal atrophy. Small sliding hiatal hernia. Small left-sided pleural effusion with overlying atelectasis and/or infiltrates. Right posterior dependent lung atelectasis. ASSESSMENT AND PLAN: Patient is a 62 yo lady with h/o Hep C (unknown whether is treated or not), Schizophrenia, COPD, colitis, and HLP who presented with abdominal pain, coffee ground emesis and was found to have acute pancreatitis. #Acute gallstone pancreatitis: improved s/p ERCP by s/p sphingterotomy , no pain , patient is comfortable, will follow surgeon as an outpatient refusing surgery, continues to refuse .Will discharge patient home. Will follow with Dr. Cunningham, Patient's home services are available today , will go home today. #s/p coffee ground emesis: EGD with esophagitis and no source of bleed so far. #Fever/Leukocytosis: improved ,completed iv zosyn. # R lung nodule, and L renal cyst. f/u as out pt will discharge today since home services are arranged today.
[2018-02-18] MEDS: amLODIPine BESYLATE 10 MG TABLET (FP) PO SCH (10:18)
[2018-02-18] MEDS: PANTOPRAZOLE 40 MG TABLET (FP) PO SCH (10:18)
[2018-02-18] MEDS: FUROSEMIDE 20 MG TABLET (FP) PO SCH (10:18)
[2018-02-18] MEDS: OLANZapine 10 MG TABLET PO SCH (10:18)
[2018-02-18] MEDS: FLUTICASONE/SALMETEROL 100 MCG/50 MCG DISKUS IH SCH (10:19)
[2018-02-18 11:35] VITALS: BP 142/67; PULSE 79; TEMP 98
--- NOTE | 2018-02-18 17:06 | DS ---
Physical Exam: SUBJECTIVE: Patient unable to leave until today due to social work. aid now present and left today. No complaints on exam. OBJECTIVE: Vital Signs Period Temp Pulse Resp BP Sys/Diaz Pulse Ox Last 24 Hr 98 F-98.8 F 79-90 18-20 125-142/59-67 97-97 PHYSICAL EXAM GENERAL: The patient is alert and oriented HEAD: Normal with no signs of trauma. LUNGS: Breath sounds equal, clear to auscultation bilaterally, no wheezes, no crackles, no accessory muscle use. HEART: Regular rate and rhythm, S1, S2 without murmur, rub or gallop. ABDOMEN: tender to palaption, worse at periumbilical EXTREMITIES: 2+ pulses, warm, well-perfused, no edema. PSYCH: Normal mood, normal affect. SKIN: Warm, dry, normal turgor, no rashes or lesions noted LABS Laboratory Results - last 24 hr 02/17/18 02/18/18 02/18/18 22:34 07:00 10:52 POC Glucometer 123 115 140 HOSPITAL COURSE: Date of Admission:02/10/18 Patient was admitted for gallstone pancreatitis. Patient MRCP showed the gallstone and GI preformed an ERCP to remove the stone. A sphincterotomy was preformed, the stone dissolved upon retrieval. Surgeon Dr. Cunningham wanted to preform a cholecystectomy but patient refused. Patients pain resolved and was able to tolerate food. Patient continued to not want cholecystectomy. Patient to continue home medications and f/u with GI as an outpatient. abd US: cholelthiasis, mildly dilated CBD Abd/Pelvis CT: acute pancreatitis, tiny gallstones without evidence of cholecystitis, without evidence of colitis FOBT: negative blood culture: no growth Urine culture: no growth Vitals stable throughout stay, patient discharged home. Date of Discharge: 02/18/18 Minutes to complete discharge: 40 Discharge Summary Reason For Visit: PANCREATITIS, HEPATITIS C VIRUS INFECTION Condition: Improved - Instructions Diet, Activity, Other Instructions: You were admitted to the hospital for pancreatitis. Pancreatitis is an inflammation of your pancreas. Your pancreas was inflamed due to a stone from your gallbladder. You had a procedure done that removed the stone and your pancreatitis resolved. If you develop abdominal pain , your gall bladder needs to come out, please follow up with the surgeon Dr. Cunningham. You should follow up with Accounting Instructor, Dr. Fish, to monitor your pancreas in one week. Please continue your home medications as prescribed. Please follow up with your primary care physician within one week. Return to the Emergency department if you have any nausea, vomiting, abdominal pain, chest pain, shortness of breath, or fevers. Referrals: Reid Cunningham MD [Staff Physician] - Naomy Fish MD [Staff Physician] - 1 Week Disposition: HOME - Home Medications Comprehensive Discharge Medication List: Ambulatory Orders Albuterol Sulfate Inhaler - [Ventolin HFA Inhaler -] 2 inh PO Q4H PRN 04/29/16 Amlodipine Besylate 10 mg PO DAILY 04/29/16 Aspirin [ASA -] 81 mg PO DAILY 04/29/16 Atorvastatin Ca [Lipitor] 20 mg PO HS 04/29/16 Gabapentin [Neurontin] 300 mg PO HS 04/29/16 Metoprolol Succinate [Toprol Xl] 50 mg PO DAILY 04/29/16 Omeprazole 20 mg PO DAILY 04/29/16 Oxycodone HCl/Acetaminophen [Percocet 10-325 mg Tablet] 1 each PO Q6H PRN MDD 4 tablets 04/29/16 Quetiapine Fumarate [Quetiapine Fumarate ER] 800 mg PO HS 04/29/16 Zolpidem Tartrate [Ambien] 10 mg PO HS 04/29/16 Clonazepam 1 mg PO DAILY PRN 02/11/18 Diclofenac Sodium 50 mg PO BID PRN 02/11/18 FENTANYL 25mcg PATCH [DURAGESIC 25mcg PATCH -] 1 patch TD Q72H PRN 02/11/18 Furosemide [Lasix -] 20 mg PO DAILY 02/11/18 Iron Ps Complex/B12/Folic Acid [Ferrex 150 Forte Capsule] 150 mg PO DAILY Lactulose 2 tbs PO DAILY 02/11/18 Mesalamine [Apriso] 4 cap PO DAILY 02/11/18 Mirtazapine 15 mg PO HS 02/11/18 Mometasone/Formoterol [Dulera 200 Mcg/5 Mcg Inhaler] 2 puff IH BID PRN 02/11/18 Olanzapine 20 mg PO DAILY 02/11/18 Varenicline Tartrate [Chantix -] 1 tablet PO BID 02/11/18 traZODone HCL [Trazodone HCl] 100 mg PO HS PRN 02/11/18 This patient is new to me today: No Emergency Visit: No Critical Care patient: No - Discharge Referral Referred to [facility] No
== END 2018-02-18 13:54 | disposition home or self-care (01) | DRG 444 ==
LOC: JER 17:00 → JERBED 22:23 → J4W 02-11 22:28 → UNDODISIN 02-13 02:00 → J7W 02-14 12:22
PROVIDERS: ADMIT Internal Medicine; ATTEND Internal Medicine
PROC: 0DJ08ZZ Inspection of Upper Intestinal Tract, Via Natural or Artificial Opening Endoscopic (ICD-10-PCS; 2018-02-11)
PROC: 0F798ZZ Dilation of Common Bile Duct, Via Natural or Artificial Opening Endoscopic (ICD-10-PCS; 2018-02-13)
PROC: 0FC98ZZ Extirpation of Matter from Common Bile Duct, Via Natural or Artificial Opening Endoscopic (ICD-10-PCS; principal; 2018-02-13 11:15)
DX: K80.70 Calculus of gallbladder and bile duct without cholecystitis without obstruction (principal); K85.10 Biliary acute pancreatitis without necrosis or infection; J90 Pleural effusion, not elsewhere classified; K20.9 Esophagitis, unspecified; J44.9 Chronic obstructive pulmonary disease, unspecified; N28.1 Cyst of kidney, acquired; D69.6 Thrombocytopenia, unspecified; I10 Essential (primary) hypertension; E11.9 Type 2 diabetes mellitus without complications; R91.1 Solitary pulmonary nodule; K74.69 Other cirrhosis of liver; E86.9 Volume depletion, unspecified; E78.5 Hyperlipidemia, unspecified; K21.9 Gastro-esophageal reflux disease without esophagitis; F17.210 Nicotine dependence, cigarettes, uncomplicated; Z96.641 Presence of right artificial hip joint; Z86.19 Personal history of other infectious and parasitic diseases; F20.9 Schizophrenia, unspecified; K59.00 Constipation, unspecified; M16.12 Unilateral primary osteoarthritis, left hip; E66.01 Morbid (severe) obesity due to excess calories; Z68.31 Body mass index [BMI] 31.0-31.9, adult; K44.9 Diaphragmatic hernia without obstruction or gangrene
CPT/HCPCS: 36415; 71046-TC-FY; 74176-TC; 74182-TC; 76000-TC-FY; 76705-TC; 80053; 81003; 82140; 82150; 82247; 82272; 82550; 82962; 83605; 83690; 83735; 84100; 84484; 85025; 85027; 85610; 86140; 86850; 86900; 86901; 87040; 87086; 87389; 93005; 93010; 99284-25; J7030

== ENCOUNTER 2018-09-19 16:44 | Emergency (ER) | payer OTHER ==
[2018-09-19 16:57] VITALS: TEMP 98.3; BMI 29.7
--- NOTE | 2018-09-19 17:41 | PDOC ---
Documentation entered by Irving Wynne SCRIBE, acting as scribe for Mary Ellen Fernández MD. Mary Ellen Fernández MD: This documentation has been prepared by the Ricci georges Xhesika, SCRIBE, under my direction and personally reviewed by me in its entirety. I confirm that the documentation accurately reflects all work, treatment, procedures, and medical decision making performed by me. 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 The patient states she went to [facility] 2 days ago for similar symptoms, was prescribed medication for her dizziness (unclear what medication is, which she has taken without relief). The patient was seen by her PCP and in the ED multiple times for the same complaint with no resolution. The patient states her dizziness is consistent and her room is constantly spinning, and when she stands up she feels like she is going to fall. The patient states she wakes up and goes to bed dizzy. The patient states she endorses upper neck pain, secondary to her symptoms. The patient states she has been eating and drinking normally, however, she ambulates with a wheelchair. The patient denies chest pain, shortness of breath, headache. Denies weakness, tingling, or numbness in legs/arms/face. Denies fever, chills, nausea, vomiting , diarrhea and constipation. Denies dysuria, frequency, urgency and hematuria. Denies recent sickness/respiratory illnesses. Denies ear pain or ear pressure. Denies vision changes or hearing changes. Allergies: haloperidol, haloperidol lactate Social History: Current smoker (ppd x 35 years). No alcohol or drug use reported. Past Surgical History: R hip replacement x2, R knee repair PCP: None reported 09/19/18 18:11 09/19/18 20:51 Past History - Past Medical History Allergies/Adverse Reactions: Allergies Allergy/AdvReac Type Severity Reaction Status Date / Time haloperidol [From Haldol] Allergy Verified 09/19/18 16:56 haloperidol lactate Allergy Verified 09/19/18 16:56 [From Haldol] Home Medications: Ambulatory Orders Albuterol Sulfate Inhaler - [Ventolin HFA Inhaler -] 2 inh PO Q4H PRN 04/29/16 Amlodipine Besylate 10 mg PO DAILY 04/29/16 Aspirin [ASA -] 81 mg PO DAILY 04/29/16 Atorvastatin Ca [Lipitor] 20 mg PO HS 04/29/16 Gabapentin [Neurontin] 300 mg PO HS 04/29/16 Metoprolol Succinate [Toprol Xl] 50 mg PO DAILY 04/29/16 Omeprazole 20 mg PO DAILY 04/29/16 Oxycodone HCl/Acetaminophen [Percocet 10-325 mg Tablet] 1 each PO Q6H PRN MDD 4 tablets 04/29/16 Quetiapine Fumarate [Quetiapine Fumarate ER] 800 mg PO HS 04/29/16 Zolpidem Tartrate [Ambien] 10 mg PO HS 04/29/16 Clonazepam 1 mg PO DAILY PRN 02/11/18 Diclofenac Sodium 50 mg PO BID PRN 02/11/18 FENTANYL 25mcg PATCH [DURAGESIC 25mcg PATCH -] 1 patch TD Q72H PRN 02/11/18 Furosemide [Lasix -] 20 mg PO DAILY 02/11/18 Iron Ps Complex/B12/Folic Acid [Ferrex 150 Forte Capsule] 150 mg PO DAILY Lactulose 2 tbs PO DAILY 02/11/18 Mesalamine [Apriso] 4 cap PO DAILY 02/11/18 Mirtazapine 15 mg PO HS 02/11/18 Mometasone/Formoterol [Dulera 200 Mcg/5 Mcg Inhaler] 2 puff IH BID PRN 02/11/18 Olanzapine 20 mg PO DAILY 02/11/18 Varenicline Tartrate [Chantix -] 1 tablet PO BID 02/11/18 traZODone HCL [Trazodone HCl] 100 mg PO HS PRN 02/11/18 Meclizine HCl [Antivert -] 50 mg PO TID PRN #30 tablet 09/19/18 Anemia: Yes CVA: Yes COPD: Yes CHF: No Diabetes: Yes GI Disorders: Yes (gerd) HTN: Yes Hypercholesterolemia: Yes - Surgical History Orthopedic Surgery: Yes (Right hip and Right knee) - Immunization History Immunization Up to Date: Yes - Suicide/Smoking/Psychosocial Hx Smoking History: Current every day smoker Have you smoked in the past 12 months: Yes Number of Cigarettes Smoked Daily: 20 Information on smoking cessation initiated: No 'Breaking Loose' booklet given: 04/30/16 Hx Alcohol Use: No Drug/Substance Use Hx: No Substance Use Type: None Hx Substance Use Treatment: No Review of Systems - Review of Systems Able to Perform ROS?: Yes Comments:: 09/19/18 17:30 Constitutional: no fevers or chills. HEENT:(+) dizziness. no headache. No congestion. No visual/hearing disturbances. CVS: no cp or syncope. Resp: no sob. No cough. Gastrointestinal: no abdominal pain, nausea or vomiting. Genitourinary: no urinary sx, hematuria. MUSCULOSKELETAL: No joint pain and swelling. No back pain. (+) neck pain. SKIN: no redness or skin changes, no discharge, no rash. No wounds. Hematologic: no easy bruising/bleeding. NEUROLOGIC: No headache, LOC or altered mental status. No weakness, numbness or tingling. +vertigo/dizziness Psych: no anxiety or depression Allergic/Immunologic: no allergies All other systems reviewed and negative, or as documented in HPI. 09/19/18 18:13 *Physical Exam - Vital Signs Last Vital Signs Temp Pulse Resp BP Pulse Ox 98.3 F 80 18 131/64 99 09/19/18 16:54 09/19/18 16:54 09/19/18 16:54 09/19/18 16:54 09/19/18 16:54 - Physical Exam Comments: 09/19/18 17:31 General: Well appearing, awake and alert, NAD. HEENT: NCAT, PERRL, EOMI, clear conjunctiva, anicteric, moist mucus membranes, clear oropharynx, no oral lesions.. Neck: neck supple, FROM Resp: CTAB, normal and even respirations, no respiratory distress CVS: RRR, no murmurs, 2+ peripheral pulses throughout, no peripheral edema Abdomen: soft, NTND, no peritoneal signs. Back: nontender, normal inspection and ROM MSK: (+) old healing cutting gross on bilateral forearms. no edema, ROMERO x4, ROM intact. No clubbing or cyanosis. normal bulk and tone. bony arthritis, protrusion of femur on right lateral thigh (chronic). Neuro: Alert, oriented to person time and place. CN II-XII grossly intact. Strength prox and distally 5/5 throughout. Sensation grossly intact to light touch. ROMERO x4. No cerebellar signs, no dysmetria, bilateral finger to nose equal and symmetric. Speech clear. gait stable, no ataxia with walker assistance. Psych: calm and cooperative Skin: warm and well perfused, cap refill <2 sec, normal color; healed scar along right lateral thigh 09/19/18 18:14 09/19/18 20:52 09/19/18 21:16 Heart Score/ECG Review #1 ECG reviewed & interpreted by me at: 17:30 General ECG Interpretation: Sinus Rhythm, Normal Rate, Normal Intervals 09/19/18 17:40 EKG normal sinus rhythm, no interval abnormalities, narrow QRS, ST and T wave segments and morphology normal. Nonspecific T wave abnormalities ED Treatment Course - LABORATORY CBC & Chemistry Diagram: 09/19/18 17:52 09/19/18 17:52 - RADIOLOGY Radiology Studies Ordered: Category Date Time Status HEAD CT WITHOUT CONTRAST [CT] Stat CT Scan 09/19/18 17:16 Ordered CHEST X-RAY PORTABLE* [RAD] Stat Radiology 09/19/18 17:16 Ordered Medical Decision Making - Medical Decision Making 09/19/18 17:38 See HPI for details. Prior notes reviewed, including admissions, discharges and consultations. Vital signs reviewed, wnl. DDx vertigo, peripheral vs central, LOW VOLTAGE TECHNICIAN lesion, CVA, ACS, arrhythmia. laboratory results and imaging reviewed, basic labs and lytes wnl CXR no acute pathology, limited due to habitus. Cardiac panel_neg, reassuring, no cp or sob. EKG normal sinus rhythm, no interval abnormalities, narrow QRS, ST and T wave segments and morphology normal. Nonspecific T wave abnormalities CT head neg for acute pathology, some atrophy ED course -interventions: IV ativan as second line for vertigo. reassess 09/19/18 19:44 pt feels better, dizziness improved. vertigo is most likely peripheral vertigo, no s/s or focal neuro deficits to suggest central etiology on exam. able to ambulate with her walker usually uses wheelchair no neuro findings or ataxia to suggest central etiology, pt elects and comfortable with discharge will rx meclizine TID prn dizziness and neuro outpatient followup given - Carlos Cuellar and [facility] referrals as well as PCP attempts to call pharmacy to check with what medication was used, no picker feeder at [facility] pharmacy Pt to be discharged in stable condition. Patient and family made aware of clinical impression, treatment recommendations and disposition plan, return precautions discussed (including but not limited to new or persistent/worsening symptoms, pain, fevers, or signs of infection, chest pain, respiratory distress , inability to tolerate oral intake, dehydration, syncope, or neurologic changes ). Follow up with PMD and/or specialist as recommended, follow up information provided, take medications as instructed for duration of time. continue with supportive care, avoid triggers and precipitants. All questions answered to patient's satisfaction and expressed understanding and comfort with this. At the time of discharge, the patient is alert, clinically improved, tolerating po and verbalizes understanding of instructions, satisfied with the care received and felt comfortable with the plan. Patient does not suffer from an acute life- threatening medical condition at this time and is safe for outpatient follow- up. 09/19/18 20:52 09/19/18 21:11 09/19/18 21:16 *DC/Admit/Observation/Transfer Diagnosis at time of Disposition: Vertigo - Discharge Dispostion Disposition: HOME Condition at time of disposition: Improved Decision to Admit order: No - Prescriptions Prescriptions: Meclizine HCl [Antivert -] 50 mg PO TID PRN #30 tablet PRN Reason: dizziness - Referrals Referrals: [facility] [Provider Group] [facility] [Provider Group] Ricky Cuellar [Non Staff, Medical] - Erasmo Ribera MD [Staff Physician] - - Patient Instructions Printed Discharge Instructions: DI for Vertigo Additional Instructions: 1) Please follow-up with your primary care doctor in the next 1-2 days. Please call tomorrow for for any urgent issues. neurology followups given too for your dizziness/vertigo 2) You were given a copy of the tests performed today. Please bring the results with you and review them with your primary care doctor. Your laboratory / imaging results were normal, including your CT Scan 3) If you have any worsening of symptoms or any other concerns please return to the ED immediately. Return if worsening symptoms including fevers, headache, vomiting, visual or hearing disturbances, abdominal pain, chest pain, shortness of breath, syncope, dehydration, inability to take things by mouth/vomiting, altered mental status, or worsening concerning symptoms. 4) Please continue taking your home medications as directed. your medications on discharge include meclizine three to four times a day as needed . side effects may include upset stomach, abdominal pain, vomiting, or diarrhea. do not drink alcohol with your medications. Stay well hydrated and rest adequately. Make an appointment. If you cannot follow-up with your primary care doctor please return to the ED FALL PREVENTION AT HOME WHAT YOU NEED TO KNOW There are many different factors that can increase your risk of falls. Falls can happen any time, but the majority of them occur in the home. Fall prevention includes ways to make your home and other areas safer. It also includes ways you can move more carefully to prevent a fall. Health conditions that cause changes in your blood pressure, vision, or muscle strength and coordination may increase your risk for falls. Medicines, including anesthesia, may increase your risk for falls if they make you dizzy, weak, or sleepy. FALL PREVENTION TIPS Stand or sit up slowly. This may help you keep your balance and prevent falls. Do not walk and talk at the same time. Concentrate on the task of walking and continue the conversation after you've reached a safe place. Wear shoes that fit well and have soles that litigation secretary. Wear shoes both inside and outside. Use slippers with good litigation secretary. Avoid shoes with high heels. Use assistive devices as directed. Your healthcare provider may suggest that you use a cane or walker to help you keep you balance. Be sure you have adequate lighting throughout your house. Keep paths clear. Remove books, shoes and other objects from walkways and stairs. Keep cords for telephones and lamps out of the way so you dont need to walk over them. Remove small rugs or secure them with double-sided tape. This will prevent you from tripping. Use a nightlight when getting out of bed at night. Stay active to maintain overall strength and endurance. Know your limitations. If there is a task you can not complete with ease, do not risk a fall by trying to complete it. Call 911 or have someone else call if: You have fallen and are unconscious You have fallen and cannot move part of your body Contact your healthcare provider if: You have fallen and have pain or a headache You have questions or concerns about your condition or care. - Post Discharge Activity
[2018-09-19 18:02] LABS: EOS % 2.4 % (0-4.5); HEMATOCRIT 38.2 % (32.4-45.2); HEMOGLOBIN 12.7 GM/dL (10.7-15.3); LYMPH % 23.4 % (8-40); MCH 29.2 pg (25.7-33.7); MCHC 33.3 g/dl (32.0-36.0); MEAN CELL VOLUME 87.7 fl (80-96); MONO % 5.8 % (3.8-10.2); NEUT % 67.4 % (42.8-82.8); PLATELET COUNT 210 K/MM3 (134-434); RBC 4.36 M/mm3 (3.60-5.2); RDW 14.4 % (11.6-15.6); WHITE BLOOD COUNT 6.4 K/mm3 (4.0-10.0)
[2018-09-19] MEDS ORDERED: LORazepam 2 MG/ML SDV VIAL ONE (18:07)
[2018-09-19 18:45] LABS: ALBUMIN 3.6 g/dl (3.4-5.0); ALK PHOS 115 U/L (45-117); ANION GAP 6 MMOL/L (8-16); BILIRUBIN,TOTAL 0.3 mg/dL (0.2-1); BLOOD UREA NITROGEN 10.8 mg/dL (7-18); CALCIUM 9.3 mg/dL (8.5-10.1); CHLORIDE 103 mmol/L (98-107); CHOLESTEROL 176 mg/dL (50-200); CO2 28 mmol/L (21-32); CREATININE 1.3 mg/dL (0.55-1.3); GLUCOSE,RANDOM 90 mg/dL (74-106); HDL CHOLESTEROL 35 mg/dL (40-60); POTASSIUM 5.2 mmol/L (3.5-5.1); SGOT/AST 26 U/L (15-37); SGPT/ALT 14 U/L (13-61); SODIUM 138 mmol/L (136-145); TOT PROT 7.4 g/dl (6.4-8.2); TRIGLYCERIDES 425 mg/dL (0-150)
[2018-09-19] MEDS ORDERED: LORazepam 1 MG TABLET PO ONE (20:25)
[2018-09-19] MEDS ORDERED: LORazepam 0.5 MG TABLET ONE (21:01)
[2018-09-19 21:06] VITALS: BP 134/80; PULSE 86
--- NOTE | 2018-09-20 13:37 | EKG ---
Test Reason : Blood Pressure : / mmHG Vent. Rate : 078 BPM Atrial Rate : 078 BPM P-R Int : 180 ms QRS Dur : 088 ms QT Int : 386 ms P-R-T Axes : 066 056 072 degrees QTc Int : 440 ms NORMAL SINUS RHYTHM NORMAL ECG WHEN COMPARED WITH ECG OF 10-FEB-2018 17:46, NO SIGNIFICANT CHANGE WAS FOUND Confirmed by MARCELA SHAFFER MD ([id number]) on 09/20/2018 1:36:46 PM Referred By: Confirmed By:MARCELA SHAFFER MD
== END 2018-09-19 21:31 | disposition home or self-care (01) ==
LOC: JER 16:44
PROC: 3E033NZ Introduction of Analgesics, Hypnotics, Sedatives into Peripheral Vein, Percutaneous Approach (ICD-10-PCS; principal; 2018-09-19)
DX: R42 Dizziness and giddiness (principal); I10 Essential (primary) hypertension; E11.9 Type 2 diabetes mellitus without complications; M19.90 Unspecified osteoarthritis, unspecified site; E78.00 Pure hypercholesterolemia, unspecified; K21.9 Gastro-esophageal reflux disease without esophagitis; Z86.73 Personal history of transient ischemic attack (TIA), and cerebral infarction without residual deficits
CPT/HCPCS: 36415; 70450-TC; 71045-TC-FY; 80053; 80061; 83721; 84484; 85025; 93005; 93010; 99283-25

== ENCOUNTER 2019-09-15 02:16 | Emergency (ER) | payer OTHER ==
[2019-09-15 02:23] VITALS: BP 129/50; PULSE 75; TEMP 97.7; BMI 29.7
--- NOTE | 2019-09-15 02:28 | PDOC ---
History of Present Illness - General Chief Complaint: Chest Pain Stated Complaint: SOB, CHEST PAIN Time Seen by Provider: 09/15/19 02:28 - History of Present Illness Initial Comments: 64 YOF w/ hypertension, diabetes and unspecified psychiatric history presenting with left chest pain of two days duration. She mentions that two days prior to arrival she became hot in her apartment, sat in front of her air conditioner, and began to experience some chest pain which persisted for the following two days. She rates the pain as 7/10 in intensity, aching in quality, nothing makes it better or worse, she has taken nothing for it, no additional associated symptoms. She denies SOB, Fever, Chills, N/V/D, recent immobility, h/o cancer, h/o DVT/PE, use of hormonal medications, leg swelling or leg pain. 09/15/19 05:12 Past History - Travel History Traveled outside of the country in the last 30 days: No Close contact w/someone who was outside of country & ill: No - Medical History Allergies/Adverse Reactions: Allergies Allergy/AdvReac Type Severity Reaction Status Date / Time haloperidol [From Haldol] Allergy Verified 09/15/19 02:23 haloperidol lactate Allergy Verified 09/15/19 02:23 [From Haldol] Home Medications: Ambulatory Orders Albuterol Sulfate Inhaler - [Ventolin HFA Inhaler -] 2 inh PO Q4H PRN 04/29/16 Amlodipine Besylate 10 mg PO DAILY 04/29/16 Aspirin [ASA -] 81 mg PO DAILY 04/29/16 Atorvastatin Ca [Lipitor] 20 mg PO HS 04/29/16 Gabapentin [Neurontin] 300 mg PO HS 04/29/16 Metoprolol Succinate [Toprol Xl] 50 mg PO DAILY 04/29/16 Omeprazole 20 mg PO DAILY 04/29/16 Oxycodone HCl/Acetaminophen [Percocet 10-325 mg Tablet] 1 each PO Q6H PRN MDD 4 tablets 04/29/16 Quetiapine Fumarate [Quetiapine Fumarate ER] 800 mg PO HS 04/29/16 Zolpidem Tartrate [Ambien] 10 mg PO HS 04/29/16 Clonazepam 1 mg PO DAILY PRN 02/11/18 Diclofenac Sodium 50 mg PO BID PRN 02/11/18 FENTANYL 25mcg PATCH [DURAGESIC 25mcg PATCH -] 1 patch TD Q72H PRN 02/11/18 Furosemide [Lasix -] 20 mg PO DAILY 02/11/18 Iron Ps Complex/B12/Folic Acid [Ferrex 150 Forte Capsule] 150 mg PO DAILY 02/11/18 Lactulose 2 tbs PO DAILY 02/11/18 Mesalamine [Apriso] 4 cap PO DAILY 02/11/18 Mirtazapine 15 mg PO HS 02/11/18 Mometasone/Formoterol [Dulera 200 Mcg/5 Mcg Inhaler] 2 puff IH BID PRN 02/11/18 Olanzapine 20 mg PO DAILY 02/11/18 Varenicline Tartrate [Chantix -] 1 tablet PO BID 02/11/18 traZODone HCL [Trazodone HCl] 100 mg PO HS PRN 02/11/18 Meclizine HCl [Antivert -] 50 mg PO TID PRN #30 tablet 09/19/18 Anemia: Yes CVA: Yes COPD: Yes CHF: No Diabetes: Yes GI Disorders: Yes (gerd) HTN: Yes Hypercholesterolemia: Yes - Surgical History Orthopedic Surgery: Yes (Right hip and Right knee) - Immunization History Immunization Up to Date: Yes - Psycho-Social/Smoking History Smoking History: Current every day smoker Have you smoked in the past 12 months: Yes Number of Cigarettes Smoked Daily: 3 Information on smoking cessation initiated: Yes 'Breaking Loose' booklet given: 04/30/16 - Substance Abuse Hx (Audit-C & DAST Scrn) How often the patient has a drink containing alcohol: Never Score: In Men: 4 or > Positive; In Women: 3 or > Positive: 0 Screen Result (Pos requires Nsg. Audit-10AR): Negative In the last yr the pt used illegal drug/Rx for NonMed reason: No Score: Yes response is considered Positive: 0 Screen Result (Positive result requires Nsg. DAST-10): Negative Review of Systems - Review of Systems Constitutional: Yes: See HPI HEENTM: Yes: See HPI Respiratory: Yes: See HPI Cardiac (ROS): Yes: See HPI ABD/GI: Yes: See HPI : Yes: See HPI Musculoskeletal: Yes: See HPI Integumentary: Yes: See HPI Neurological: Yes: See HPI Endocrine: Yes: See HPI Hematologic/Lymphatic: Yes: See HPI *Physical Exam - Vital Signs Last Vital Signs Temp Pulse Resp BP Pulse Ox 97.7 F 75 18 129/50 L 100 09/15/19 02:21 09/15/19 02:21 09/15/19 02:21 09/15/19 02:21 09/15/19 02:21 - Physical Exam General Appearance: Yes: Nourished, Appropriately Dressed, Mild Distress Respiratory/Chest: positive: Chest Tender, Lungs Clear, Normal Breath Sounds Cardiovascular: positive: Regular Rhythm, Regular Rate, S1, S2 Gastrointestinal/Abdominal: positive: Normal Bowel Sounds, Soft ED Treatment Course - LABORATORY CBC & Chemistry Diagram: 09/15/19 03:44 09/15/19 03:44 Medical Decision Making - Medical Decision Making This is a 64 YOF h/o hypertension, and diabetes who presents with CP of 2 days duration. Denies Fever, Chills, N/V/D, h/o DVT/ PE, recent cancer diagnosis, leg swelling or leg pain, prolonged immobility. Her vitals were stable on arrival, on exam she has left chest pain that is producible with palpation. Other exam is wnl. She has a wells score of 0. She has a HEART score of 4. Differential includes but is not limited to musculo skeletal pain, pneumonia, NSTEMI. Plan: EKG, CXR, Troponin, CBC, CMP. Will give aspirin 325 mgs. Reassess: Patient has normal EKG and CXR. When discussed with patient possible need to stay over night for further obs patient became agitated and decided to leave AMA. Dispo: Patient left AMA, she was considered to be competent and cognitively intact, the risks of leaving were discussed with the patient, she demonstrated understanding, signed the appropriate documents and left. Discharge - Discharge Information Problems reviewed: Yes Clinical Impression/Diagnosis: Chest pain Qualifiers: Chest pain type: unspecified Qualified Code(s): R07.9 - Chest pain, unspecified Condition: Unchanged/Unknown Disposition: AGAINST MEDICAL ADVICE - Admission No - Follow up/Referral - Patient Discharge Instructions - Post Discharge Activity
[2019-09-15] MEDS ORDERED: ASPIRIN 81 MG CHEWABLE TABLETS PO ONE (03:12)
--- NOTE | 2019-09-15 03:26 | PDOC ---
Attending Attestation - Resident Resident Name: Zoran Sierra - ED Attending Attestation I have performed the following: I have examined & evaluated the patient, The case was reviewed & discussed with the resident, I agree w/resident's findings & plan, Exceptions are as noted - HPI HPI: 09/15/19 03:23 64 F with h/o HTN, HLD, presenting with chest pain. Describes L sided chest pain worse with palpation. Pain began today. Denies SOB. Denies leg swelling. Denies F/C/cough. Denies recent travel/immobilization. - Physicial Exam PE: 09/15/19 03:24 See resident exam - Medical Decision Making 09/15/19 03:24 64 F with chest pain. EKG unremarkable. - Labs, trop - CXR 09/15/19 04:00 Pt refusing to wait for results and refusing admission to hospital, as she wishes to go home. The patient is clinically sober, free from distracting injury, appears to have intact insight and judgment and reason and in my opinion has the capacity to make decisions. The patient presented with chest pain. I have explained that I am concerned that this may represent a heart attack; they have verbalized an understanding of my concerns. I have told the patient that while their EKG is normal, they could still have heart disease. I have discussed the need for admission to the hospital and cardiology consultation to get more information about potential causes of the patients chest pain. I have told the patient that if they leave and have chest pain or shortness of breath, they could get much worse, could become critically ill, and could possibly become disabled or . She is unwilling to stay overnight for monitoring. She is refusing any further care and is leaving against medical advice. I am unable to convince the patient to stay, I have asked them to return as soon as possible to complete their evaluation. I have answered all their questions. Please note this patient was evaluated during the COVID-19 crisis with the presidential [place] Act Declaration and the [place] governor executive order number [id number]. He/she was evaluated and clinical decisions were made relative to healthcare system resources as well as clinical picture during a pandemic crisis situation. Discharge - Discharge Information Problems reviewed: Yes Clinical Impression/Diagnosis: Chest pain Qualifiers: Chest pain type: unspecified Qualified Code(s): R07.9 - Chest pain, unspecified Condition: Unchanged/Unknown Disposition: AGAINST MEDICAL ADVICE - Follow up/Referral - Patient Discharge Instructions - Post Discharge Activity
[2019-09-15] MEDS ORDERED: ASPIRIN 81 MG CHEWABLE TABLETS ONE (03:54)
[2019-09-15 04:05] LABS: BASO % 0.9 % (0-2.0); EOS % 2.8 % (0-4.5); HEMATOCRIT 41.2 % (32.4-45.2); HEMOGLOBIN 13.6 GM/dL (10.7-15.3); LYMPH % 25.7 % (8-40); MCH 29.2 pg (25.7-33.7); MCHC 33.1 g/dl (32.0-36.0); MEAN CELL VOLUME 88.2 fl (80-96); MEAN PLT VOLUME 7.2 fl (7.5-11.1); MONO % 6.7 % (3.8-10.2); NEUT % 63.9 % (42.8-82.8); PLATELET COUNT 204 K/MM3 (134-434); RBC 4.67 M/mm3 (3.60-5.2); RDW 14.3 % (11.6-15.6); WHITE BLOOD COUNT 7.3 K/mm3 (4.0-10.0)
[2019-09-15 04:29] LABS: ALBUMIN 4.1 g/dl (3.4-5.0); ALK PHOS 139 U/L (45-117); ANION GAP 9 MMOL/L (8-16); BILIRUBIN,TOTAL 0.4 mg/dL (0.2-1); BLOOD UREA NITROGEN 18.9 mg/dL (7-18); CALCIUM 9.4 mg/dL (8.5-10.1); CHLORIDE 103 mmol/L (98-107); CO2 23 mmol/L (21-32); CREATININE 1.5 mg/dL (0.55-1.3); GLUCOSE,RANDOM 104 mg/dL (74-106); POTASSIUM 4.3 mmol/L (3.5-5.1); SGOT/AST 21 U/L (15-37); SGPT/ALT 18 U/L (13-61); SODIUM 135 mmol/L (136-145); TOT PROT 7.9 g/dl (6.4-8.2)
--- NOTE | 2019-09-15 10:20 | EKG ---
Test Reason : Blood Pressure : / mmHG Vent. Rate : 074 BPM Atrial Rate : 074 BPM P-R Int : 182 ms QRS Dur : 084 ms QT Int : 378 ms P-R-T Axes : 068 053 053 degrees QTc Int : 419 ms POOR DATA QUALITY, INTERPRETATION MAY BE ADVERSELY AFFECTED NORMAL SINUS RHYTHM NORMAL ECG WHEN COMPARED WITH ECG OF 19-SEP-2018 16:58, NO SIGNIFICANT CHANGE WAS FOUND Confirmed by Leeanna Lanza ([id number]) on 09/15/2019 10:19:45 AM Referred By: Confirmed By:Leeanna Lanza
== END 2019-09-15 04:07 | disposition left against medical advice (07) ==
LOC: JER 02:16
DX: R07.9 Chest pain, unspecified (principal)
CPT/HCPCS: 36415; 71046-TC-FY; 80053; 82550; 84484; 85025; 93005; 93010; 99285-25

== ENCOUNTER 2023-01-04 15:01 | Inpatient (IN) | payer OTHER ==
[2023-01-04] MEDS ORDERED: methylPREDNISolone NA SUCC 125 MG/2 ML VIAL IVPUSH ONE (16:06)
[2023-01-04] MEDS ORDERED: methylPREDNISolone NA SUCC 125 MG/2 ML VIAL ONE (16:38)
[2023-01-04] MEDS ORDERED: ALBUTEROL SO4 2.5/IPRATROPIUM 0.5 INH SOL 3 ML VIAL.NEB. NEB ONE ×6 (16:38→21:31)
[2023-01-04] MEDS: ALBUTEROL SO4 2.5/IPRATROPIUM 0.5 INH SOL 3 ML VIAL.NEB. NEB SCH ×4 (16:39→17:43)
[2023-01-04 16:41] LABS: VENOUS PCO2 53.6 mmHg (38-52); VENOUS PH 7.289 (7.310-7.410)
[2023-01-04 16:48] LABS: BASO % 0.7 % (0-2.0); EOS % 0.2 % (0-4.5); HEMATOCRIT 32.5 % (32.4-45.2); HEMOGLOBIN 10.6 GM/dL (10.7-15.3); LYMPH % 13.6 % (8-40); MCH 27.9 pg (25.7-33.7); MCHC 32.7 g/dl (32.0-36.0); MEAN CELL VOLUME 85.3 fl (80-96); MEAN PLT VOLUME 6.3 fl (7.5-11.1); MONO % 6.3 % (3.8-10.2); NEUT % 79.2 % (42.8-82.8); PLATELET COUNT 175 10^3/uL (134-434); RBC 3.81 M/mm3 (3.60-5.2); RDW 14.6 % (11.6-15.6); WHITE BLOOD COUNT 4.7 K/mm3 (4.0-10.0)
[2023-01-04 16:54] LABS: INR 1.14 (0.83-1.09); PROTHROMBIN TIME (PATIENT) 13.2 SEC (9.7-13.0)
[2023-01-04 16:57] LABS: ACTIVATED PTT 29.3 SECONDS (25.2-36.5)
[2023-01-04 17:07] LABS: POTASSIUM 5.9 mmol/L (3.5-5.1)
[2023-01-04 17:08] LABS: CALCIUM 9.1 mg/dL (8.5-10.1)
[2023-01-04 17:09] LABS: ALBUMIN 3.3 g/dl (3.4-5.0); BLOOD UREA NITROGEN 10.9 mg/dL (7-18)
[2023-01-04 17:12] LABS: CREATININE 1.4 mg/dL (0.55-1.3)
[2023-01-04 17:14] LABS: BILIRUBIN,TOTAL 0.3 mg/dL (0.2-1); TOT PROT 6.9 g/dl (6.4-8.2)
[2023-01-04 17:17] LABS: N-TERMINAL BNP 1368.8 pg/ml (5-125)
[2023-01-04] MEDS ORDERED: CALCIUM GLUCONATE 10% - 1,000 MG/10 ML VIAL IVPB ONE (18:05)
[2023-01-04] MEDS ORDERED: INSULIN REGULAR HUMAN 100 UNITS/ML *VIAL SQ ONE (18:06)
[2023-01-04] MEDS ORDERED: DEXTROSE 50%-WATER - 25 GM/50 ML VIAL IVPUSH ONE (18:09)
[2023-01-04] MEDS ORDERED: CALCIUM GLUCONATE 10% - 1,000 MG/10 ML VIAL ONE (18:37)
[2023-01-04] MEDS ORDERED: DEXTROSE 50%-WATER 25 GM/50 ML DISP.SYRIN ONE (18:37)
[2023-01-04] MEDS ORDERED: INSULIN REGULAR HUMAN 100 UNITS/ML *VIAL ONE (18:37)
[2023-01-04] MEDS ORDERED: FUROSEMIDE 40 MG/4 ML INJECTABLE VIAL IVPUSH ONE (21:40)
[2023-01-04] MEDS ORDERED: FUROSEMIDE 40 MG/4 ML INJECTABLE VIAL ONE (22:25)
[2023-01-05] MEDS: HEPARIN NA (PORCINE) 5,000 UNITS/ML 1ML VIAL SQ SCH ×4 (00:41→22:30)
[2023-01-05] MEDS: methylPREDNISolone NA SUCC 40 MG/1 ML VIAL IVPUSH SCH ×4 (00:42→17:39)
[2023-01-05 02:27] LABS: POTASSIUM 5.4 mmol/L (3.5-5.1)
[2023-01-05 02:28] LABS: CALCIUM 8.6 mg/dL (8.5-10.1)
[2023-01-05 02:32] LABS: CREATININE 1.7 mg/dL (0.55-1.3)
[2023-01-05 07:20] LABS: OPIATES, URI NEGATIVE (NEGATIVE); URINE AMPHETAMINES NEGATIVE (NEGATIVE); URINE BENZODIAZEPINES NEGATIVE (NEGATIVE)
[2023-01-05 07:21] LABS: PHENCYCLIDINE,URINE NEGATIVE (NEGATIVE); URINE BARBITURATES NEGATIVE (NEGATIVE)
[2023-01-05 07:43] LABS: HEMATOCRIT 34.4 % (32.4-45.2); HEMOGLOBIN 10.9 GM/dL (10.7-15.3); MCH 27.9 pg (25.7-33.7); MCHC 31.8 g/dl (32.0-36.0); MEAN CELL VOLUME 87.9 fl (80-96); MEAN PLT VOLUME 6.5 fl (7.5-11.1); PLATELET COUNT 173 10^3/uL (134-434); RBC 3.92 M/mm3 (3.60-5.2); RDW 14.1 % (11.6-15.6)
[2023-01-05 08:01] LABS: EPI CELLS 33 /uL (0-25.1); HYALINE CASTS 1 /uL (0-3.1); PH,URINE 5.5 (5.0-8.0); URINE APPEARANCE CLEAR; URINE BACTERIA 958 /uL (0-1359); URINE BILIRUBIN NEGATIVE (NEGATIVE); URINE COLOR YELLOW; URINE GLUCOSE (UA) NEGATIVE (NEGATIVE); URINE KETONE NEGATIVE (NEGATIVE); URINE LEUK ESTERASE NEGATIVE (NEGATIVE); URINE NITRITE NEGATIVE (NEGATIVE); URINE PROTEIN 3+ (NEGATIVE); URINE RBC 27 /uL (0-23.9); URINE UROBILINOGEN 0.2 mg/dL (0.2-1.0); URINE WBC 9 /uL (0-25.8)
[2023-01-05 08:02] LABS: CALCIUM 8.6 mg/dL (8.5-10.1)
[2023-01-05] MEDS ORDERED: DEXTROSE 50%-WATER - 25 GM/50 ML VIAL IVPUSH ONE (08:02)
[2023-01-05] MEDS ORDERED: INSULIN REGULAR HUMAN 100 UNITS/ML *VIAL IVPUSH ONE (08:02)
[2023-01-05 08:03] LABS: ALBUMIN 3.1 g/dl (3.4-5.0); MAGNESIUM 2.2 mg/dL (1.8-2.4)
[2023-01-05] MEDS ORDERED: SODIUM ZIRCONIUM CYCLOSILICATE (LOKELMA) 5 GM PACKET PO ONE (08:03)
[2023-01-05 08:06] LABS: CREATININE 1.4 mg/dL (0.55-1.3); PHOSPHOROUS 4.5 mg/dL (2.5-4.9)
[2023-01-05 08:07] LABS: BILIRUBIN,TOTAL 0.9 mg/dL (0.2-1); TOT PROT 7.3 g/dl (6.4-8.2)
[2023-01-05 08:15] LABS: COCAINE, UR NEGATIVE (NEGATIVE)
[2023-01-05] MEDS ORDERED: DEXTROSE 50%-WATER 25 GM/50 ML DISP.SYRIN ONE (08:20)
[2023-01-05] MEDS: ALBUTEROL SO4 2.5/IPRATROPIUM 0.5 INH SOL 3 ML VIAL.NEB. NEB SCH ×4 (08:24→20:39)
[2023-01-05 08:56] LABS: ANISOCYTOSIS 2+; MACROCYTOSIS 0
[2023-01-05] MEDS ORDERED: LIDOCAINE 4% PATCH TP SCH (10:00)
[2023-01-05] MEDS ORDERED: LIDOCAINE 5% TOPICAL PATCH TP SCH (10:00)
[2023-01-05] MEDS: amLODIPine BESYLATE 10 MG TABLET (FP) PO SCH (10:41)
[2023-01-05] MEDS ORDERED: SODIUM BICARBONATE 8.4% 50 MEQ/50 ML VIAL IVPUSH ONE (11:08)
[2023-01-05] MEDS ORDERED: CALCIUM GLUCONATE 10% - 1,000 MG/10 ML VIAL IVPB ONE (11:08)
[2023-01-05] MEDS: SODIUM ZIRCONIUM CYCLOSILICATE (LOKELMA) 5 GM PACKET PO SCH ×2 (11:22→22:30)
[2023-01-05] MEDS: LIDOCAINE 4% PATCH TP SCH (12:24)
[2023-01-05 15:37] LABS: METHADONE, UR NEGATIVE (NEGATIVE)
[2023-01-05 16:08] LABS: POTASSIUM 5.7 mmol/L (3.5-5.1)
[2023-01-05 16:10] LABS: BLOOD UREA NITROGEN 20.8 mg/dL (7-18)
[2023-01-05 16:13] LABS: CREATININE 1.4 mg/dL (0.55-1.3)
[2023-01-05] MEDS ORDERED: DULoxetine HCL 30 MG CAPSULE.DR PO SCH (22:00)
[2023-01-05] MEDS: LIDOCAINE PATCH REMOVAL MC SCH ×2 (22:31→22:32)
[2023-01-06] MEDS: methylPREDNISolone NA SUCC 40 MG/1 ML VIAL IVPUSH SCH ×3 (02:49→17:29)
[2023-01-06] MEDS: MELATONIN 5 MG TABLETS PO PRN (03:50)
[2023-01-06] MEDS: SODIUM CHLORIDE 1,000 ML IV SCH ×2 (04:11→14:47)
[2023-01-06] MEDS: HEPARIN NA (PORCINE) 5,000 UNITS/ML 1ML VIAL SQ SCH ×3 (06:33→22:35)
[2023-01-06 08:13] LABS: HEMATOCRIT 31.2 % (32.4-45.2); MCH 27.8 pg (25.7-33.7); MCHC 32.1 g/dl (32.0-36.0); MEAN CELL VOLUME 86.7 fl (80-96); MEAN PLT VOLUME 6.3 fl (7.5-11.1); PLATELET COUNT 170 10^3/uL (134-434); RDW 14.3 % (11.6-15.6)
[2023-01-06 08:32] LABS: POTASSIUM 5.5 mmol/L (3.5-5.1)
[2023-01-06 08:34] LABS: BLOOD UREA NITROGEN 34.6 mg/dL (7-18)
[2023-01-06 08:36] LABS: CALCIUM 8.7 mg/dL (8.5-10.1); MAGNESIUM 2.4 mg/dL (1.8-2.4)
[2023-01-06 08:38] LABS: CREATININE 1.4 mg/dL (0.55-1.3); PHOSPHOROUS 3.2 mg/dL (2.5-4.9)
[2023-01-06] MEDS: SODIUM ZIRCONIUM CYCLOSILICATE (LOKELMA) 5 GM PACKET PO SCH ×2 (09:55→22:35)
[2023-01-06] MEDS: amLODIPine BESYLATE 10 MG TABLET (FP) PO SCH (09:55)
[2023-01-06] MEDS: LIDOCAINE 4% PATCH TP SCH (09:57)
[2023-01-06] MEDS ORDERED: ACETAMINOPHEN 325 MG TABLET (FP) PO PRN ×2 (12:14→13:58)
[2023-01-06] MEDS ORDERED: oxyCODONE HCL 5 MG TABLET PO PRN ×2 (13:56→13:58)
[2023-01-06] MEDS ORDERED: ALBUTEROL SO4 2.5/IPRATROPIUM 0.5 INH SOL 3 ML VIAL.NEB. NEB PRN ×2 (14:25)
[2023-01-06] MEDS: ALBUTEROL SO4 2.5/IPRATROPIUM 0.5 INH SOL 3 ML VIAL.NEB. NEB SCH ×2 (15:10→20:00)
[2023-01-06 15:22] LABS: ARTERIAL BLD GAS O2 SATURATION 81.6 % (95-98); ARTERIAL BLOOD GAS BASE EXCESS 2.8 mmol/L (-2-2); ARTERIAL BLOOD GAS PO2 47.4 mmHg (80-100); ARTERIAL BLOOD GAS pH 7.372 (7.350-7.450)
[2023-01-06 15:23] LABS: ALLENS TEST POSITIVE
[2023-01-06] MEDS: CEFTRIAXONE 1 GM in DEXTROSE 5%-WATER - 50 ML IVPB SCH (15:31)
[2023-01-06] MEDS: guaiFENesin 200 MG/10 ML 10 ML UNIT-DOSE CUPS PO PRN (17:33)
[2023-01-06] MEDS: LIDOCAINE PATCH REMOVAL MC SCH ×2 (22:35→22:36)
[2023-01-07] MEDS: methylPREDNISolone NA SUCC 40 MG/1 ML VIAL IVPUSH SCH ×4 (03:00→20:41)
[2023-01-07] MEDS: SODIUM CHLORIDE 1,000 ML IV SCH (06:36)
[2023-01-07] MEDS: HEPARIN NA (PORCINE) 5,000 UNITS/ML 1ML VIAL SQ SCH ×3 (06:36→22:12)
[2023-01-07] MEDS: ALBUTEROL SO4 2.5/IPRATROPIUM 0.5 INH SOL 3 ML VIAL.NEB. NEB SCH ×4 (07:50→20:21)
[2023-01-07 09:01] LABS: HEMATOCRIT 29.5 % (32.4-45.2); MCH 28.8 pg (25.7-33.7); MCHC 33.9 g/dl (32.0-36.0); MEAN CELL VOLUME 84.9 fl (80-96); MEAN PLT VOLUME 6.7 fl (7.5-11.1); PLATELET COUNT 177 10^3/uL (134-434); RBC 3.48 M/mm3 (3.60-5.2); RDW 14.6 % (11.6-15.6); WHITE BLOOD COUNT 6.1 K/mm3 (4.0-10.0)
[2023-01-07] MEDS: amLODIPine BESYLATE 10 MG TABLET (FP) PO SCH (09:07)
[2023-01-07] MEDS: CEFTRIAXONE 1 GM in DEXTROSE 5%-WATER - 50 ML IVPB SCH (09:08)
[2023-01-07] MEDS: SODIUM ZIRCONIUM CYCLOSILICATE (LOKELMA) 5 GM PACKET PO SCH ×3 (09:08→21:29)
[2023-01-07] MEDS: LIDOCAINE 4% PATCH TP SCH (09:10)
[2023-01-07 09:22] LABS: POTASSIUM 4.6 mmol/L (3.5-5.1)
[2023-01-07 09:25] LABS: CALCIUM 8.1 mg/dL (8.5-10.1)
[2023-01-07 09:26] LABS: ALBUMIN 2.7 g/dl (3.4-5.0); MAGNESIUM 2.3 mg/dL (1.8-2.4)
[2023-01-07 09:29] LABS: CREATININE 1.4 mg/dL (0.55-1.3)
[2023-01-07 09:31] LABS: BILIRUBIN,TOTAL 0.4 mg/dL (0.2-1); TOT PROT 6.4 g/dl (6.4-8.2)
[2023-01-07 10:42] LABS: ANISOCYTOSIS 0; HELMET CELLS 0; HOWELL-JOLLY BODIES 0; MACROCYTOSIS 0; OVALOCYTE 0; ROULEAU 0; SICKELED CELLS 0; TARGET CELLS 0; TEAR DROP CELLS 0; TOXIC GRANULATION 0
[2023-01-07] MEDS: PANTOPRAZOLE 40 MG TABLET PO SCH (11:15)
[2023-01-07] MEDS: INSULIN SLIDING SCALE (NOVOLOG) 1 VIAL SQ SCH ×3 (11:16→22:13)
[2023-01-07] MEDS: MAGNESIUM HYDROX 2400MG/30ML ORAL SUSPENSION 30 ML CUP PO PRN (21:27)
[2023-01-07] MEDS: oxyCODONE HCL 5 MG TABLET PO PRN (22:12)
[2023-01-07] MEDS: LIDOCAINE PATCH REMOVAL MC SCH ×2 (22:13→23:58)
[2023-01-08] MEDS: methylPREDNISolone NA SUCC 40 MG/1 ML VIAL IVPUSH SCH ×4 (02:25→21:53)
[2023-01-08] MEDS: INSULIN SLIDING SCALE (NOVOLOG) 1 VIAL SQ SCH ×4 (06:04→22:01)
[2023-01-08] MEDS: HEPARIN NA (PORCINE) 5,000 UNITS/ML 1ML VIAL SQ SCH ×3 (06:05→21:57)
[2023-01-08] MEDS: SODIUM CHLORIDE 1,000 ML IV SCH (06:05)
[2023-01-08] MEDS: ALBUTEROL SO4 2.5/IPRATROPIUM 0.5 INH SOL 3 ML VIAL.NEB. NEB SCH ×4 (07:15→20:08)
[2023-01-08 08:15] LABS: HEMATOCRIT 30.4 % (32.4-45.2); MCH 28.2 pg (25.7-33.7); MCHC 33.1 g/dl (32.0-36.0); MEAN CELL VOLUME 85.3 fl (80-96); MEAN PLT VOLUME 6.6 fl (7.5-11.1); PLATELET COUNT 187 10^3/uL (134-434); RBC 3.56 M/mm3 (3.60-5.2); RDW 14.7 % (11.6-15.6)
[2023-01-08 08:21] LABS: POTASSIUM 5.7 mmol/L (3.5-5.1)
[2023-01-08 08:24] LABS: CALCIUM 8.3 mg/dL (8.5-10.1)
[2023-01-08 08:25] LABS: ALBUMIN 2.6 g/dl (3.4-5.0); BLOOD UREA NITROGEN 41.4 mg/dL (7-18); MAGNESIUM 2.5 mg/dL (1.8-2.4)
[2023-01-08 08:28] LABS: CREATININE 1.4 mg/dL (0.55-1.3)
[2023-01-08 08:29] LABS: BILIRUBIN,TOTAL 0.2 mg/dL (0.2-1); TOT PROT 6.1 g/dl (6.4-8.2)
[2023-01-08 09:27] LABS: ANISOCYTOSIS 1+; MACROCYTOSIS 0
[2023-01-08] MEDS: SODIUM ZIRCONIUM CYCLOSILICATE (LOKELMA) 5 GM PACKET PO SCH ×2 (09:43→22:04)
[2023-01-08] MEDS: PANTOPRAZOLE 40 MG TABLET PO SCH (09:43)
[2023-01-08] MEDS: LIDOCAINE 4% PATCH TP SCH (09:44)
[2023-01-08] MEDS: amLODIPine BESYLATE 10 MG TABLET (FP) PO SCH (09:45)
[2023-01-08] MEDS: CEFTRIAXONE 1 GM in DEXTROSE 5%-WATER - 50 ML IVPB SCH (09:45)
[2023-01-08] MEDS: guaiFENesin 200 MG/10 ML 10 ML UNIT-DOSE CUPS PO PRN (09:47)
[2023-01-08] MEDS ORDERED: ERGOCALCIFEROL (VIT D2) 50,000 UNIT (1.25 MG) CAPSULE PO SCH (10:00)
[2023-01-08] MEDS: MAGNESIUM HYDROX 2400MG/30ML ORAL SUSPENSION 30 ML CUP PO PRN (11:28)
[2023-01-08] MEDS ORDERED: SODIUM CHLORIDE 0.45% 1,000 ML IV SCH (11:45)
[2023-01-08] MEDS: oxyCODONE HCL 5 MG TABLET PO PRN (22:04)
[2023-01-08] MEDS: LIDOCAINE PATCH REMOVAL MC SCH ×2 (22:05)
[2023-01-09] MEDS: methylPREDNISolone NA SUCC 40 MG/1 ML VIAL IVPUSH SCH ×4 (03:28→22:00)
[2023-01-09] MEDS: HEPARIN NA (PORCINE) 5,000 UNITS/ML 1ML VIAL SQ SCH ×3 (05:29→22:26)
[2023-01-09] MEDS: INSULIN SLIDING SCALE (NOVOLOG) 1 VIAL SQ SCH ×4 (06:03→22:28)
[2023-01-09] MEDS: ALBUTEROL SO4 2.5/IPRATROPIUM 0.5 INH SOL 3 ML VIAL.NEB. NEB SCH ×4 (07:25→20:10)
[2023-01-09 09:04] LABS: HEMOGLOBIN 9.9 GM/dL (10.7-15.3); MEAN CELL VOLUME 87.5 fl (80-96); MEAN PLT VOLUME 6.6 fl (7.5-11.1); PLATELET COUNT 228 10^3/uL (134-434); RBC 3.54 M/mm3 (3.60-5.2); RDW 14.5 % (11.6-15.6); WHITE BLOOD COUNT 4.9 K/mm3 (4.0-10.0)
[2023-01-09 09:31] LABS: POTASSIUM 5.5 mmol/L (3.5-5.1)
[2023-01-09 09:33] LABS: CALCIUM 8.2 mg/dL (8.5-10.1)
[2023-01-09 09:34] LABS: ALBUMIN 2.6 g/dl (3.4-5.0); BLOOD UREA NITROGEN 43.7 mg/dL (7-18); MAGNESIUM 2.7 mg/dL (1.8-2.4)
[2023-01-09 09:36] LABS: CREATININE 1.4 mg/dL (0.55-1.3)
[2023-01-09 09:38] LABS: BILIRUBIN,TOTAL 0.2 mg/dL (0.2-1); TOT PROT 5.9 g/dl (6.4-8.2)
[2023-01-09 09:44] LABS: ANISOCYTOSIS 2+; MACROCYTOSIS 2+
[2023-01-09] MEDS: amLODIPine BESYLATE 10 MG TABLET (FP) PO SCH (09:44)
[2023-01-09] MEDS: PANTOPRAZOLE 40 MG TABLET PO SCH (09:44)
[2023-01-09] MEDS: CEFTRIAXONE 1 GM in DEXTROSE 5%-WATER - 50 ML IVPB SCH (09:45)
[2023-01-09] MEDS: LIDOCAINE 4% PATCH TP SCH (09:47)
[2023-01-09] MEDS: SODIUM ZIRCONIUM CYCLOSILICATE (LOKELMA) 5 GM PACKET PO SCH ×2 (11:26→22:25)
[2023-01-09] MEDS ORDERED: AZITHROMYCIN IVPB 500 MG/250 ML BAG IVPB SCH (14:00)
[2023-01-09] MEDS: AZITHROMYCIN IVPB 500 MG/250 ML BAG IVPB SCH (14:27)
[2023-01-09] MEDS: MAGNESIUM HYDROX 2400MG/30ML ORAL SUSPENSION 30 ML CUP PO PRN (15:30)
[2023-01-09] MEDS: oxyCODONE HCL 5 MG TABLET PO PRN (15:30)
[2023-01-09] MEDS: MELATONIN 5 MG TABLETS PO PRN (22:26)
[2023-01-09] MEDS: LIDOCAINE PATCH REMOVAL MC SCH ×2 (22:27)
[2023-01-10] MEDS: methylPREDNISolone NA SUCC 40 MG/1 ML VIAL IVPUSH SCH ×2 (03:57→09:42)
[2023-01-10] MEDS: INSULIN SLIDING SCALE (NOVOLOG) 1 VIAL SQ SCH ×4 (06:21→21:35)
[2023-01-10] MEDS: HEPARIN NA (PORCINE) 5,000 UNITS/ML 1ML VIAL SQ SCH ×3 (06:21→21:32)
[2023-01-10] MEDS: ALBUTEROL SO4 2.5/IPRATROPIUM 0.5 INH SOL 3 ML VIAL.NEB. NEB SCH ×4 (08:20→20:30)
[2023-01-10 09:22] LABS: HEMATOCRIT 32.6 % (32.4-45.2); HEMOGLOBIN 10.3 GM/dL (10.7-15.3); MCH 27.8 pg (25.7-33.7); MCHC 31.7 g/dl (32.0-36.0); MEAN CELL VOLUME 87.8 fl (80-96); MEAN PLT VOLUME 6.4 fl (7.5-11.1); PLATELET COUNT 254 10^3/uL (134-434); RBC 3.71 M/mm3 (3.60-5.2); RDW 14.6 % (11.6-15.6); WHITE BLOOD COUNT 5.2 K/mm3 (4.0-10.0)
[2023-01-10 09:24] LABS: HEMATOCRIT 31.9 % (32.4-45.2); HEMOGLOBIN 10.3 GM/dL (10.7-15.3); MCH 28.2 pg (25.7-33.7); MCHC 32.2 g/dl (32.0-36.0); MEAN CELL VOLUME 87.5 fl (80-96); MEAN PLT VOLUME 6.3 fl (7.5-11.1); PLATELET COUNT 253 10^3/uL (134-434); RBC 3.64 M/mm3 (3.60-5.2); RDW 14.8 % (11.6-15.6); WHITE BLOOD COUNT 5.1 K/mm3 (4.0-10.0)
[2023-01-10] MEDS: PANTOPRAZOLE 40 MG TABLET PO SCH (09:43)
[2023-01-10] MEDS: CEFTRIAXONE 1 GM in DEXTROSE 5%-WATER - 50 ML IVPB SCH (09:43)
[2023-01-10] MEDS: amLODIPine BESYLATE 10 MG TABLET (FP) PO SCH (09:43)
[2023-01-10] MEDS: SODIUM ZIRCONIUM CYCLOSILICATE (LOKELMA) 5 GM PACKET PO SCH ×3 (09:48→21:32)
[2023-01-10] MEDS: AZITHROMYCIN IVPB 500 MG/250 ML BAG IVPB SCH (09:48)
[2023-01-10 10:04] LABS: ANISOCYTOSIS 0; HELMET CELLS 0; HOWELL-JOLLY BODIES 0; MACROCYTOSIS 0; OVALOCYTE 0; ROULEAU 0; SICKELED CELLS 0; TARGET CELLS 0; TEAR DROP CELLS 0; TOXIC GRANULATION 0
[2023-01-10] MEDS: LIDOCAINE 4% PATCH TP SCH (10:10)
[2023-01-10 10:20] LABS: POTASSIUM 5.3 mmol/L (3.5-5.1)
[2023-01-10 10:23] LABS: CALCIUM 8.4 mg/dL (8.5-10.1)
[2023-01-10 10:24] LABS: ALBUMIN 2.5 g/dl (3.4-5.0); BLOOD UREA NITROGEN 46.6 mg/dL (7-18); MAGNESIUM 2.8 mg/dL (1.8-2.4)
[2023-01-10 10:29] LABS: BILIRUBIN,TOTAL 0.4 mg/dL (0.2-1); CREATININE 1.4 mg/dL (0.55-1.3); TOT PROT 5.8 g/dl (6.4-8.2)
[2023-01-10] MEDS: oxyCODONE HCL 5 MG TABLET PO PRN ×2 (11:59→22:01)
[2023-01-10 15:37] VITALS: RESP 18
[2023-01-10] MEDS: predniSONE 20 MG TABLET (UD) PO SCH (16:05)
[2023-01-10] MEDS: LIDOCAINE PATCH REMOVAL MC SCH ×2 (21:32)
[2023-01-10] MEDS ORDERED: methylPREDNISolone NA SUCC 40 MG/1 ML VIAL IVPUSH SCH (22:00)
[2023-01-11] MEDS: INSULIN SLIDING SCALE (NOVOLOG) 1 VIAL SQ SCH ×3 (06:10→17:27)
[2023-01-11] MEDS: HEPARIN NA (PORCINE) 5,000 UNITS/ML 1ML VIAL SQ SCH ×2 (06:10→13:58)
[2023-01-11] MEDS: ALBUTEROL SO4 2.5/IPRATROPIUM 0.5 INH SOL 3 ML VIAL.NEB. NEB SCH ×3 (08:05→15:10)
[2023-01-11 08:30] LABS: HEMATOCRIT 32.2 % (32.4-45.2); HEMOGLOBIN 10.4 GM/dL (10.7-15.3); MCH 28.5 pg (25.7-33.7); MCHC 32.4 g/dl (32.0-36.0); MEAN CELL VOLUME 87.9 fl (80-96); MEAN PLT VOLUME 6.5 fl (7.5-11.1); PLATELET COUNT 250 10^3/uL (134-434); RBC 3.66 M/mm3 (3.60-5.2); RDW 14.9 % (11.6-15.6); WHITE BLOOD COUNT 5.5 K/mm3 (4.0-10.0)
[2023-01-11 08:51] LABS: CHLORIDE 100 mmol/L (98-107); SODIUM 134 mmol/L (136-145)
[2023-01-11 09:00] LABS: ALBUMIN 2.5 g/dl (3.4-5.0); BLOOD UREA NITROGEN 45.1 mg/dL (7-18); CALCIUM 8.1 mg/dL (8.5-10.1); CO2 29 mmol/L (21-32); GLUCOSE,RANDOM 122 mg/dL (74-106)
[2023-01-11 09:04] LABS: CREATININE 1.2 mg/dL (0.55-1.3); SGOT/AST 32 U/L (15-37); SGPT/ALT 31 U/L (13-61)
[2023-01-11 09:05] LABS: BILIRUBIN,TOTAL 0.8 mg/dL (0.2-1)
[2023-01-11 09:07] LABS: ALK PHOS 66 U/L (45-117)
[2023-01-11 09:09] LABS: ANION GAP 5 mmol/L (4-13); POTASSIUM 6.1 mmol/L (3.5-5.1)
[2023-01-11] MEDS ORDERED: AZITHROMYCIN 250 MG TABLET PO SCH (10:00)
[2023-01-11] MEDS: amLODIPine BESYLATE 10 MG TABLET (FP) PO SCH (10:21)
[2023-01-11] MEDS: PANTOPRAZOLE 40 MG TABLET PO SCH (10:22)
[2023-01-11] MEDS: LIDOCAINE 4% PATCH TP SCH (10:22)
[2023-01-11] MEDS: predniSONE 20 MG TABLET (UD) PO SCH (10:22)
[2023-01-11] MEDS: SODIUM ZIRCONIUM CYCLOSILICATE (LOKELMA) 5 GM PACKET PO SCH (10:22)
[2023-01-11 13:08] VITALS: BMI 28.1
[2023-01-11 13:11] LABS: POTASSIUM 4.7 mmol/L (3.5-5.1)
[2023-01-11 13:13] LABS: CALCIUM 8.1 mg/dL (8.5-10.1)
[2023-01-11 13:14] LABS: BLOOD UREA NITROGEN 44.8 mg/dL (7-18)
[2023-01-11 13:18] LABS: CREATININE 1.3 mg/dL (0.55-1.3)
[2023-01-11 15:06] VITALS: BP 156/72; PULSE 98; TEMP 97.9
== END 2023-01-11 18:29 | disposition home or self-care (01) | DRG 190 ==
LOC: JER 15:01 → JERBED 18:02 → J4S 22:50
PROVIDERS: ADMIT Internal Medicine; ATTEND Internal Medicine
DX: J44.0 Chronic obstructive pulmonary disease with (acute) lower respiratory infection (principal); J18.9 Pneumonia, unspecified organism; J96.01 Acute respiratory failure with hypoxia; J96.02 Acute respiratory failure with hypercapnia; E87.1 Hypo-osmolality and hyponatremia; E87.29 Other acidosis; J44.1 Chronic obstructive pulmonary disease with (acute) exacerbation; E87.5 Hyperkalemia; D64.9 Anemia, unspecified; E11.9 Type 2 diabetes mellitus without complications; E78.5 Hyperlipidemia, unspecified; F32.A Depression, unspecified; G62.9 Polyneuropathy, unspecified; N18.30 Chronic kidney disease, stage 3 unspecified; I12.9 Hypertensive chronic kidney disease with stage 1 through stage 4 chronic kidney disease, or unspecified chronic kidney disease
CPT/HCPCS: 0241U-QW; 36415; 36600; 71045-TC-FY; 71250-TC; 80048; 80053; 80307; 81003; 82436; 82465; 82533; 82570; 82803; 82962; 83036; 83735; 83880; 83930; 83935; 84100; 84133; 84300; 84443; 84484; 84540; 85025; 85027; 85610; 85730; 87070; 87086; 87186; 87205; 87899; 93005; 93010; 93306-TC; 94010; 94640; 94761; 97116-GP; 97161-GP; 99285-25; J1644